=== PATIENT | female | born 1955 | race Caucasian/White ===

== ENCOUNTER 2018-05-22 13:17 | Outpatient (RCR) | payer MEDICARE, MEDICAID, SELFPAY ==
[2018-05-22 13:43] VITALS: BP 159/80; PULSE 75; RESP 16; TEMP 35.7; BMI 37.3
--- NOTE | 2018-05-22 16:20 | PCM.WC.PN ---
(1) Non-pressure chronic ulcer of other part of right foot with fat layer exposed Status: Chronic Current Visit: Yes Code(s): L97.512 - Non-pressure chronic ulcer of other part of right foot with fat layer exposed (2) Type 2 diabetes mellitus with diabetic polyneuropathy Status: Chronic Current Visit: Yes Code(s): E11.42 - Type 2 diabetes mellitus with diabetic polyneuropathy (3) Delayed wound healing Status: Chronic Current Visit: Yes Code(s): T14.8XXD - Other injury of unspecified body region, subsequent encounter (4) Malnutrition Status: Suspected Current Visit: Yes Code(s): E46 - Unspecified protein-calorie malnutrition (5) Osteomyelitis of right foot Status: Suspected Current Visit: Yes Code(s): M86.9 - Osteomyelitis, unspecified (6) Other specified peripheral vascular diseases Status: Suspected Current Visit: Yes Code(s): I73.89 - Other specified peripheral vascular diseases (7) Venous insufficiency Status: Suspected Current Visit: Yes Code(s): I87.2 - Venous insufficiency (chronic) (peripheral) (8) Edema leg Status: Chronic Current Visit: Yes Code(s): R60.0 - Localized edema Type of Wound Chief Complaint: Right foot ulcer History of Wound: This 63-year-old female with uncontrolled diabetic neuropathy and other multiple comorbidities presents to the wound healing center today. She was referred from the foot and ankle center. She did have her second and third toe amputations performed about 8 years ago and had recent skin peeling and breakdown of this site. She denies current redness fever, chill, nausea, vomiting or odors. She denies trauma. She denies claudication during ambulation. She applies gauze at home. She does have rest paresthesias and has known neuropathy. Progress of Wound: Stable - Physical Exam Vital Signs Temp Pulse Resp BP 96.2 F L 75 16 159/80 H 05/22/18 13:43 05/22/18 13:43 05/22/18 13:43 05/22/18 13:43 General: Alert, Oriented x3, Cooperative HEENT: Atraumatic Extremities: No cyanosis, Capillary Refill Less than 3 Seconds, No Calf Tenderness - Negative Beatrice and Aldrich sign, Diminished Peripheral Pulses, Edema - Bilateral lower extremities with leg hyperpigmentation and some telangiectasias, - - Amputation of first, second, third toes right foot Skin: Ulcer/ Wound - No purulence, erythema, streaking, odor, or acute infection. There is no exposed deep tissue. There is a full-thickness granular base ulcer sub-first metatarsal head location. There is additional skin peeling and excoriations and inflammatory changes to the entire 1, 2, 3, stump sites at the amputation level. There is no bogginess or fluctuance on palpation right foot. There is no interdigital maceration Wound Measurements and Assessment NICOLÁS - Nurse 1 - General Ulcer Measurement Start: 05/22/18 13:39 Freq: Status: Active Protocol: Activity Type Activity Date Activity User E-Sign Co-Sign Detail Recorded Client Recorded Date Recorded By Document 05/22/18 13:43 [facility] [id number] 05/22/18 14:01 [facility] 05/22/18 13:43 Wound Center Nurse 1 [Ulcer Assessment] #1- RT PLANTAR FOOT -Combined with other wound No -Current Size (cm) - Length 0.6 -Current Size (cm) - Width 0.4 -Current Size (cm) - Depth 0.2 -Total Square Cm 0.24 -Date of Last Picture (Recall this 05/22/18 field) -Photo Taken Yes -Epithelialization None Present -Tunneling No -Undermining/Tunneling No -Circular Undermining No -Exudate Amt Small (1-33%) -Exudate Type Serosanguineous -Wound Margin Distinct, Outline Attached -Granulation Amt Medium (34-66%) -Granulation Quality [place] -Slough/Fibrin Yes -Necrosis Amt Small (1-33%) -Necrotic Tissue Type Adherent Slough -Texture (Luisana-wound Skin Appearance) Scarring -Moisture (Luisana-wound Skin Appearance Dry/Scaly ) -Color (Luisana-wound Skin Appearance) Assessed Erythema -Temperature (Luisana-wound Skin Hot Appearance) -Tenderness on Palpation (Luisana-wound Yes Skin Appearance) -Ulcer Cleansing Wound Cleanser -Foul Odor after Cleansing No -Anesthetic Used 4% Lidocaine Solution [Edema Assessment] -Lower Limb Edema Present Yes -Right Calf (cm) 50 -Right Ankle (cm) 47.7 -Left Calf (cm) 27.6 -Left Ankle (cm) 26.5 NICOLÁS - Nurse 2 - General Ulcer CM Notes Start: 05/22/18 13:39 Freq: Status: Active Protocol: Activity Type Activity Date Activity User E-Sign Co-Sign Detail Recorded Client Recorded Date Recorded By Document 05/22/18 14:32 [id number] 05/22/18 14:34 05/22/18 14:32 Wound Center Nurse 2 [Procedure/Treatment] #1- RT PLANTAR FOOT -Time 14:32 -Correct Patient Yes -Correct Side, Site, Position Yes -Correct Procedure Yes -Procedure Performed Yes -Type of Procedure Debridement -Clinical Debridement Subcutaneous -Post Debridement Size (cm) - Length 0.7 -Post Debridement Size (cm) - Width 0.4 -Post Debridement Size (cm) - Depth 0.2 -Total Square Cm 0.28 -Wound/Ulcer Outcome Not Healed -Ulcer Cleansing Rinsed/ Irrigated with Saline -Foul Odor after Cleansing No -Bioengineered Tissue No -Bleeding Controlled with Pressure -Treatment Response Procedure Tolerated Well [See Physician Procedure note for Specifics] Pain Scale: 0-10 Numeric [Pain] -Is Patient Pain Free? Yes Musculoskeletal: No Tenderness to Palpation of Joints or Extremities, Muscle Wasting Psych/Mental Status: Normal Affect - Lack of epicritic sensation light touch, Appropriate Debridement Note Post-Debridement Measurements/Treatment WC - Nurse 2 - General Ulcer CM Notes Start: 05/22/18 13:39 Freq: Status: Active Protocol: Activity Type Activity Date Activity User E-Sign Co-Sign Detail Recorded Client Recorded Date Recorded By Document 05/22/18 14:32 [id number] 05/22/18 14:34 05/22/18 14:32 Wound Center Nurse 2 #1- RT PLANTAR FOOT -Time 14:32 -Correct Patient Yes -Correct Side, Site, Position Yes -Correct Procedure Yes -Procedure Performed Yes -Type of Procedure Debridement -Clinical Debridement Subcutaneous -Post Debridement Size (cm) - Length 0.7 -Post Debridement Size (cm) - Width 0.4 -Post Debridement Size (cm) - Depth 0.2 -Total Square Cm 0.28 -Wound/Ulcer Outcome Not Healed -Ulcer Cleansing Rinsed/ Irrigated with Saline -Foul Odor after Cleansing No -Bioengineered Tissue No -Bleeding Controlled with Pressure -Treatment Response Procedure Tolerated Well Pain Scale: 0-10 Numeric Is Patient Pain Free? Yes Wound debrided: sub 1st metatarsal head Wound Grade/Stage: grade 1 Type of Debridement: Excisional debridement Anesthesia Used: 4% Lidocaine Solution Depth: in the subcutaneous layer Percentage of wound debrided: 100 Instrument Used: #15 blade Tissue Removed: fibrous, devitalized subcutaneous, biofilm, slough Severity: Fat Layer Exposed Amount of bleeding with debridement: Mild Bleeding Controlled with: Pressure Patient tolerated procedure well Assessment/Plan Active Problems Type 2 diabetes mellitus with diabetic polyneuropathy (Chronic) Non-pressure chronic ulcer of other part of right foot with fat layer exposed (Chronic) Delayed wound healing (Chronic) Edema leg (Chronic) Assessment: Ulcer right foot with fat layer exposed. Diabetes with neuropathy. Edema. Peripheral vascular disease suspected. Venous insufficiency suspected. Malnutrition suspected. Delayed healing. Previous 1, 2, 3 toe amputations of right foot Plan: I reviewed and discussed this patient's case today. I initially saw her at the foot and ankle center. She did not obtain the x-ray or labs that I recommended. New orders were provided today. She is also going to get rescheduled for noninvasive vascular studies to look for any potential perfusion issues. She will additionally obtain venous Doppler to evaluate specifically for reflux and venous insufficiency. I recommended offloading. She does have a surgical shoe with offloading dual density Plastizote liners to take pressure off of the sub-first metatarsal head ulcer site. She is reassured there are no local signs of infection today but understands that subacute osteomyelitis deep to this area is at her previous amputation site and this is a concern. This will be screened for with the labs and imaging studies. Her labs are ordered to include CMP, CBC with differential, ESR, C-reactive protein, and prealbumin. I recommend nutritional supplementation optimize healing including Wilbert; a prescription was provided. I also recommend improved glycemic control she understands this will impair healing potential. I also provided education on smoking cessation; this is imperative for healing potential as well. I answered all of her questions. She will return to the wound center in 1 week or call sooner if she has any questions or concerns.
== END 2018-06-20 23:59 ==
LOC: WC 13:17
PROVIDERS: Family Provider Family Medicine; PCP Family Medicine; Visit Provider Podiatrist
DX: E11.621 Type 2 diabetes mellitus with foot ulcer (principal); E11.42 Type 2 diabetes mellitus with diabetic polyneuropathy; I87.2 Venous insufficiency (chronic) (peripheral); R60.0 Localized edema; L97.512 Non-pressure chronic ulcer of other part of right foot with fat layer exposed
CPT/HCPCS: 11042; 99213; G0463

== ENCOUNTER 2018-07-04 13:19 | Inpatient (IN) | payer MEDICARE, MEDICAID, SELFPAY ==
[2018-07-04 13:20] VITALS: BP 196/67; PULSE 70; RESP 17; TEMP 36.6; O2SAT 98; BMI 39.1
--- NOTE | 2018-07-04 15:09 | VDLE_ITS ---
Reason For Study: pain RIGHT GSV is normal. CFV is compressible, spontaneous, phasic, competent and demonstrates normal augmentation. FV is compressible, spontaneous, phasic, competent and demonstrates normal augmentation. POP V is compressible, spontaneous, phasic, competent and demonstrates normal augmentation. T/P Trunk is compressible. PTV is compressible. RT PerV is compressible. Procedure Exam performed portable in ED. The exam was of fair technical quality due to pt body habitus. A preliminary report was called and/or faxed to Dr. Zaragoza. <> Interpretation Summary There is no evidence of right lower extremity deep vein thrombosis. Right greater saphenous vein appears patent and compressible segmentally. Ordering Physician: Ronny Zaragoza Performed By: Maximilian Howard RVLaura
[2018-07-04 15:21] LABS: Absolute Lymphocyte Count 1.72 X10^3/ul (0.83-4.51); Absolute Neutrophil Count 5.1 X10^3/uL (2.0-7.7); Basophil# 0.03 X10^3/uL; Basophil% 0.4 % (0-1); Eosinophil# 0.06 X10^3/uL; Eosinophils% 0.8 % (0-5); Hematocrit 32.8 % (37-47); Hemoglobin 10.9 g/dl (12.0-15.0); Lymphocyte # 1.72 X10^3/ul (4.0); Lymphocyte % 23.3 % (19-41); Mean Corp Hgb Conc 33.2 g/gl (32-36); Mean Corpuscular Hgb 28.8 pg (27.0-32.0); Mean Corpuscular Volume 86.8 fL (81-99); Mean Platelet Vol. 8.4 fl (6.2-12.0); Monocyte# 0.33 X10^3/uL; Monocyte% 4.5 % (0-10); Neutrophil # 5.09 X10^3/uL (2.7-7.7); Neutrophil % 69.1 % (47-70); Platelet Count 367 K/mm3 (150-450); RBC Distribution Width CV 14.5 % (11.6-14.6); RBC Distribution Width SD 43.9 fl (35.1-43.9); Red Blood Count 3.78 M/mm3 (4.2-5.4); White Blood Count 7.4 K/mm3 (4.4-11.0)
[2018-07-04 15:22] LABS: POSITIVE COUNT NO; POSITIVE DIFFERENTIAL NO; POSITIVE MORPHOLOGY NO
[2018-07-04 15:31] LABS: ALB/GLOB Ratio 0.5 RATIO (0.9-2.4); AST(SGOT) 24 U/L (15-37); Alanine Aminotransfer ALT/SGPT 25 U/L (13-56); Albumin, Serum 2.8 g/dL (3.2-5.0); Alkaline Phosphatase 137 U/L (45-117); Anion Gap 7 (5-15); BUN 15 mg/dL (7-18); BUN/Creat Ratio 19.3 RATIO (10-20); Calcium,Total 8.5 mg/dL (8.5-10.1); Chloride 108 mmol/L (98-107); Creatinine, Serum 0.78 mg/dL (0.55-1.02); EST Glomerular Filtration Rate 79 mL/min (>60); Est Glom Filt Rate - Afr Amer 96 mL/min (>60); Globulin 5.6 g/dL (2.2-4.2); Glucose 161 mg/dL (74-106); Potassium 4.2 mmol/L (3.5-5.1); Protein, Total 8.4 g/dL (6.4-8.2); Sodium Level 140 mmol/L (136-145)
[2018-07-04 15:33] LABS: Lactic Acid 1.4 mmol/L (0.4-2.0)
[2018-07-04] MEDS: HYDROmorphone 1 MG/ML Syringe IV (15:37)
[2018-07-04] MEDS: 0.9% Normal Saline 1,000 ML 150 ML IV (15:37)
[2018-07-04] MEDS: Ondansetron 4 MG/2 ML Vial IV (15:37)
--- NOTE | 2018-07-04 15:54 | ED.VISSUMM ---
- ER Visit Summary Date of Service: 07/04/18 Chief Complaint: [Redness, pain, and swelling to right leg] History of Present Illness: The patient is a 63 F [presents the emergency department with complaint of 2 weeks worth of swelling and redness to the right leg. Patient was seen at [place] emergency department 2 weeks ago and was admitted for 3 days. Patient was discharged home on doxycycline. Patient continues to have significant pain and swelling to the leg. Patient denies any fever. Patient denies any chills. Patient does have a history of peripheral vascular disease and a chronic wound to the right foot.] Physical Examination: [HEENT-PERRLA, EOMI. Cranial nerves II through XII grossly intact. TMs clear. Mucous membranes moist. No adenopathy. Cardiovascular-regular rate and rhythm without murmur or ectopy Lungs-clear to auscultation, chest wall stable without crepitus or subcu emphysema Abdomen-normoactive bowel sounds, soft, nontender, no rebound or rigidity, no peritoneal signs. Extremities-intact ?4, normal range of motion, normal pulses. Right leg-patient has diffuse edema from the knee to the foot. Patient has erythema noted and warmth diffusely. Patient has absent great toe, second toe, and third toe. Patient has a wound over where the great toe would be and there is foul odor noted. Patient is noted to have a dorsal pedal pulse is strong as well as a posterior tibial pulse. Test Results: [CBC with differential obtained showed white count 7.4, hemoglobin 10.9, hematocrit 33, platelets 367. History is unremarkable. Lactate was 1.4. LFTs essentially unremarkable. Patient had duplex of the right lower extremity that was unremarkable for DVT. Patient tells me that 2 weeks ago she had x-rays of her leg that were unremarkable.] Emergency Department Course and Treatment: [Patient started on vancomycin and was medicated with morphine and Zofran.] Treatment Plan: [Admit] Disposition: [Admit] Impression: [Right lower extremity cellulitis-failed outpatient therapy Chronic diabetic wound right foot] This note was generated with [employer] dictation software. It may contain incorrect words, spelling, and punctuation that were not noted in review of the chart prior to signing ED Disposition - Plan for ED Patient: Chief Complaint: Cellulitis Referrals: Justino Yost MD [Primary Care Provider] -
--- NOTE | 2018-07-04 15:57 | ED.DCSUM_ITS ---
- ER Visit Summary Date of Service: 07/04/18 Chief Complaint: [Redness, pain, and swelling to right leg] History of Present Illness: The patient is a 63 F [presents the emergency department with complaint of 2 weeks worth of swelling and redness to the right leg. Patient was seen at [place] emergency department 2 weeks ago and was admitted for 3 days. Patient was discharged home on doxycycline. Patient continues to have significant pain and swelling to the leg. Patient denies any fever. Patient denies any chills. Patient does have a history of peripheral vascular disease and a chronic wound to the right foot.] Physical Examination: [HEENT-PERRLA, EOMI. Cranial nerves II through XII grossly intact. TMs clear. Mucous membranes moist. No adenopathy. Cardiovascular-regular rate and rhythm without murmur or ectopy Lungs-clear to auscultation, chest wall stable without crepitus or subcu emphysema Abdomen-normoactive bowel sounds, soft, nontender, no rebound or rigidity, no peritoneal signs. Extremities-intact ?4, normal range of motion, normal pulses. Right leg-patient has diffuse edema from the knee to the foot. Patient has erythema noted and warmth diffusely. Patient has absent great toe, second toe, and third toe. Patient has a wound over where the great toe would be and there is foul odor noted. Patient is noted to have a dorsal pedal pulse is strong as well as a posterior tibial pulse. Test Results: [CBC with differential obtained showed white count 7.4, hemoglobin 10.9, hematocrit 33, platelets 367. History is unremarkable. Lactate was 1.4. LFTs essentially unremarkable. Patient had duplex of the right lower extr emity that was unremarkable for DVT. Patient tells me that 2 weeks ago she had x-rays of her leg that were unremarkable.] Emergency Department Course and Treatment: [Patient started on vancomycin and was medicated with morphine and Zofran.] Treatment Plan: [Admit] Disposition: [Admit] Impression: [Right lower extremity cellulitis-failed outpatient therapy Chronic diabetic wound right foot] This note was generated with [employer] dictation software. It may contain incorrect words, spelling, and punctuation that were not noted in review of the chart prior to signing ED Disposition - Plan for ED Patient: Chief Complaint: Cellulitis Referrals: Justino Yost MD [Primary Care Provider] -
--- NOTE | 2018-07-04 16:09 | HP.PCM_ITS ---
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 (2) Non-pressure chronic ulcer of other part of right foot with fat layer exposed Status: Chronic (3) HLD (hyperlipidemia) Status: Chronic (4) Morbid obesity Status: Chronic (5) PVD (peripheral vascular disease) Status: Chronic History of Present Illness Date of Admission: 07/04/18 Chief Complaint: Redness, swelling of legs, 2 weeks, failed outpatient therapy The patient is a 63 year old F with past medical history of morbid obesity, type II DM, complicated by peripheral neuropathy, status post right first 3 toes amputation, hypertension, depression/anxiety recently admitted to [facility] 2 weeks ago for right lower extremity cellulitis. She said workup there was negative for osteomyelitis. She was discharged a week ago on d oxycycline for which she has completed today. She noticed that her right lower extremity was still red, warm to touch, and painful. She complains of fever and chills as well as nausea and vomiting ongoing for 3 days. Denies any diarrhea or abdominal discomfort. She denies any itching or scratching. Vitals in the ED showed temperature of 90 7.8F, heart rate was 70, blood pressure was 196/67, respiratory rate was 17, SPO2 was 97% on room air. Lab investigation showed RBC count 7.4, Hb 10.9, platelet count of 367. Sodium was 140, potassium 4.2, chloride 108, bicarbonate 25, BUN 15, creatinine 0.78 Doppler ultrasound of both lower extremity was negative for any acute DVT 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 (Chronic) Delayed wound healing (Chronic) Edema leg (Chronic) Morbid obesity (Chronic) Wound infection (Chronic) Rt tow Peripheral neuropathy (Chronic) PVD (peripheral vascular disease) (Chronic) HLD (hyperlipidemia) (Chronic) DM2 (diabetes mellitus, type 2) (Chronic) Agitated depression (Chronic) Allergies clindamycin Allergy (Verified 07/04/18 13:19) Unknown Penicillins Allergy (Verified 07/04/18 13:19) Rash pentazocine [From Talwin] Allergy (Verified 07/04/18 13:19) Unknown tramadol [From Ultram] Allergy (Verified 07/04/18 13:19) Unknown morphine [From MS Contin] Adverse Reaction (Verified 07/04/18 13:19) Unknown varenicline [From Chantix] Adverse Reaction (Verified 07/04/18 13:19) Unknown Home Medications: Ambulatory Orders Medication Instructions Recorded Clopidogrel Bisulfate [Plavix] 75 mg PO DAILY 10/20/16 Gabapentin [Neurontin] 600 mg PO 4X/DAY 10/20/16 Insulin Aspart [Novolog Vial] 13 units SQ TIDCM 10/20/16 Lisinopril [Zestril] 5 mg PO DAILY 10/20/16 Naproxen 375 mg PO BID PRN PRN 10/20/16 Ropinirole HCl [Requip] 0.5 mg PO QHS 10/20/16 Rosuvastatin Calcium 10 mg PO QHS 10/20/16 Sertraline HCl [Zoloft] 200 mg PO DAILY 10/20/16 Albuterol IH (ProAir) [Proair Hfa 2 puff INHALATION Q4H PRN PRN 05/22/18 (SP)Vent Pts] Aspirin 81 mg PO DAILY 05/22/18 Cyclobenzaprine HCl 10 mg PO TID PRN PRN 05/22/18 Insulin Glargine,Hum.rec.anlog 42 unit SQ QHS 05/22/18 [Basaglar Kwikpen U-100] Lactulose 10 - 20 gm PO DAILY PRN PRN 05/22/18 Lorazepam [Ativan] 1 mg PO 4X/DAY 05/22/18 Nystatin Powder [Mycostatin Powder] 1 applic TOPICAL BID 05/22/18 Ondansetron HCl [Zofran] 4 mg PO Q6H PRN PRN 05/22/18 Doxycycline Hyclate 100 mg PO BID 07/04/18 traZODone [Desyrel] 200 mg PO QHS PRN PRN 07/04/18 Surgical History: appendectomy, cholecystectomy, hysterectomy, tonsillectomy, - - Carpal tunnel surgery, status post right first 3 toes removal Psychiatric History: Anxiety, Depression 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 Denies: Anorexia, Malaise, Weight Change Eyes: Denies: Blurred vision, Cataracts, Conjunctivae Inflammation, Double vision HEENT: Denies: Difficulty Hearing, Difficulty Swallowing, Head Aches, Hearing Changes, Nasal bleeding, Sinus Congestion, Sinus Drainage Cardiovascular: Denies: Chest Pain, Claudication, Orthopnea, Palpitations, Paroxysmal Noc. Dyspnea Respiratory: Denies: Cough, Hemoptysis, Pleuritic Pain, Shortness of breath at rest, Shortness of breath upon exertion, Sputum production Gastrointestinal: Denies: Abdominal Pain, Hematemesis, Hematochezia, Nausea, Vomiting Genitourinary: Denies: Dysuria Musculoskeletal: Reports: Leg Pain. Denies: Joint Pain, Joint stiffness, Joint swelling, Joint Tenderness Skin: Denies: Pruritis, Rash, Wounds Neurological: Denies: Numbness, Tingling, Focal weakness Psychiatric: Denies: Anxiety, Depression, Homicidal Ideations, Suicidal Ideations Hematologic/ Lymphatic: Denies: Easy Bruising, Easy Bleeding VTE Information - Inpt Only VTE Present on Admission: No VTE Pharm Prophylaxis ordered?: Yes - Physical Exam General: Alert, Oriented x3, Cooperative, No apparent distress, - - Morbidly obese HEENT: Atraumatic, PERRLA, EOMI, Normocephalic Oral: Moist Mucosa Neck: Supple Lungs: Clear to auscultation, Normal air movement Cardiovascular: Regular rate, Regular Rhythm, Normal S1, Normal S2, No murmurs Abdomen: Bowel Sounds Present, Soft, Non Tender, Non-Distended, No Hepato- splenomegaly, Obese - Anterior abdominal wall Extremities: Edema - Bilateral leg edema, +3-4, erythema of the right medial and posterior aspect of the leg, with petechiae-like skin changes, with differential warmth and more edema Status post right first 3 toes amputation, chronic ulcer at the plantar surface. Skin: No rashes, No breakdown Musculoskeletal: No Tenderness to Palpation of Joints or Extremities Lymphatic: No Cervical, Supraclavicular, or Inguinal Adenopathy Neurological: Cranial nerves II-XII grossly intact, Neuro grossly intact Psych/Mental Status: Normal Affect, Appropriate Vital Signs Temp Pulse Resp BP Pulse Ox 97.8 F 70 17 196/67 H 98 07/04/18 13:20 07/04/18 13:20 07/04/18 13:20 07/04/18 13:20 07/04/18 13:20 Oxygen Delivery Method Nasal Cannula Weight: 106.594 kg Body Mass Index (BMI) 39.1 Laboratory Tests Past 24 Hrs 07/04/18 07/04/18 07/04/18 14:20 14:20 14:20 WBC 7.4 RBC 3.78 L Hgb 10.9 L Hct 32.8 L MCV 86.8 MCH 28.8 MCHC 33.2 RDW 14.5 RDW Differential 43.9 Plt Count 367 MPV 8.4 Immature Gran % (Auto) 1.900 H Neut % (Auto) 69.1 Lymph % (Auto) 23.3 [place] % (Auto) 4.5 Eos % (Auto) 0.8 Baso % (Auto) 0.4 Absolute Neuts (auto) 5.1 Absolute Lymphs (auto) 1.72 Total Counted Not Reportable Sodium 140 Potassium 4.2 Chloride 108 H Carbon Dioxide 25.0 Anion Gap 7 BUN 15 Creatinine 0.78 Estim Creat Clear Calc 64.70 Est GFR (MDRD) Af Amer 96 Est GFR (MDRD) Non-Af 79 BUN/Creatinine Ratio 19.3 Glucose 161 H Lactic Acid 1.4 Calcium 8.5 Total Bilirubin 0.50 AST 24 ALT 25 Alkaline Phosphatase 137 H Total Protein 8.4 H Albumin 2.8 L Globulin 5.6 H Albumin/Globulin Ratio 0.5 L Assessment/Plan 63 year old F with past medical history of morbid obesity, type II DM, complicated by peripheral neuropathy, status post right first 3 toes amputation, chronic non-healing foot ulcer hypertension, depression/anxiety recently admitted to [facility] 2 weeks ago for right lower extremity cellulitis. 1.Right lower extremity cellulitis, persistent, failed outpatient treatment, recently discharged from over the [facility] for similar presentation Completed 1 week of doxycycline today. DVT ruled out from bilateral Doppler of extremities. Plan: Admit to [facility], elevate extremity, IV vancomycin and IV ertapenem, ID consult, follow-up on blood cultures, retrieve records from [facility] 2.Chronic right plantar diabetic ulcer, was following labor relations officer but has not recently, will consult podiatry, wound nurse consult, retrieve records from [facility]. 3.Type II DM complicated by peripheral neuropathy, continue on home insulin regimen, gabapentin as well as Accu-Cheks with insulin sliding scale 4.Hypertension, continue on home lisinopril regimen, will monitor vitals 5.Morbid obesity, BMI 39.1, diet and exercise is recommended 6.Nicotine dependence, advised to quit, continue nicotine patch and gum 7.Anxiety/depression, continue home medication 8.History of CVA, on aspirin and Plavix 9. Anemia, microcytic microchromic, will check iron stores, retic count 10. DVT PPx- Lovenox SC Code Visit Inpatient E&M: 75495 Init Hosp L3
[2018-07-04 16:11] VITALS: PULSE 68; RESP 15; O2SAT 93
[2018-07-04 16:49] VITALS: BMI 41.1; BMI 41.2
[2018-07-04 17:08] VITALS: BP 178/59; PULSE 72; RESP 16; TEMP 36.4; O2SAT 98
[2018-07-04 17:10] LABS: Bedside Glucose 183 mg/dL (70-110)
--- NOTE | 2018-07-04 17:35 | RAD_ITS ---
STUDY: X-RAY - RIGHT FOOT CLINICAL: Female, 63 years old. Nonhealing right foot ulcers. TECHNIQUE: 3 view(s) of the foot. COMPARISON: None. FINDINGS: The absence of prior studies is a significant limitation examination such as this. Patient is status post amputation of the first ray at the level of the mid metatarsal. There has also been amputations of the second and third digits. No definite fractures or dislocations. No definite destructive lesions of the bones. Moderate degenerative changes of the midfoot. Large plantar spur. Marked soft tissue swelling of the dorsum and medial aspect of the foot. Soft tissue air is not excluded. RAD/Foot min 3 Views IMPRESSION: Multiple forefoot deformities from previous amputations. No definite acute fracture, dislocation, or destructive lesion of the bones. Marked soft tissue swelling. Electronically Signed: Steffen Edouard MD at 17:56 EST , Service support ,
--- NOTE | 2018-07-04 17:39 | PCM.RX.CS ---
Consult Pharmacy has been consulted to manage selected antiobiotic: Vancomycin Type of Consult: New start Suspected Infection: Skin/Soft tissue Prior Doses of Antibiotics Received/Current Regimen: 1 Labs: Sodium 140 mmol/L (136-145) 07/04/18 14:20 Potassium 4.2 mmol/L (3.5-5.1) 07/04/18 14:20 Chloride 108 mmol/L (98-107) H 07/04/18 14:20 Carbon Dioxide 25.0 mmol/L (21.0-32.0) 07/04/18 14:20 Anion Gap 7 (5-15) 07/04/18 14:20 BUN 15 mg/dL (7-18) 07/04/18 14:20 Creatinine 0.78 mg/dL (0.55-1.02) 07/04/18 14:20 Est GFR (MDRD) Af Amer 96 mL/min (>60) 07/04/18 14:20 Est GFR (MDRD) Non-Af 79 mL/min (>60) 07/04/18 14:20 BUN/Creatinine Ratio 19.3 RATIO (10-20) 07/04/18 14:20 Glucose 161 mg/dL (74-106) H 07/04/18 14:20 Weight used for dosin kg Estimated Creatinine Clearance: 65 Goal Trough: 15-20 mcg/mL - start Vancomycin 1500mg IVPB q12h and draw trough level prior to 4th dose = 07/06/18 @ 0330 Pharmacy Plan for Drug Dosing: Pharmacy Service will continue to monitor and adjust dosing as required.
--- NOTE | 2018-07-04 18:11 | PCA ---
faxed over medical records request to [facility] for doctor.
[2018-07-04 18:43] LABS: Ferritin 220 ng/mL (8-252); Iron 46 ug/dL (50-170); Iron Binding Capacity,Total 213 ug/dL (250-450); PERCENT IRON SATURATION 21.6 % (15.0-55.0)
[2018-07-04 19:16] LABS: RET-HE 27.1 pg (30-35); Reticulocyte Count 3.59 % (0.5-1.5)
--- NOTE | 2018-07-04 19:16 | CON.PCM_ITS ---
Reason for Consult Date of Consultation: 07/04/18 Reason for Consultation: Ulcer, infection right foot History of Present Illness: The patient is a 63 year old female with history of diabetes was seen today for right foot ulceration. She has had hx of partial 1st ray amputation as well as 2nd and 3rd toe amputation on the right foot over the past 6 years. She relates she had has a chronic ulceration to the bottom of the right foot (sub 2nd met head), which is nonhealing. She relates sometimes there is yellow drainage. She relates she last saw Dr. Alvarado 1 year ago for the ulcer and states she was told nothing more could be done. She has also seen Dr. Johnson on in the past. She has not followed up with care. She relates she was admitted at [facility] last week for cellulitis to the right leg, she relates she still has cellulitis which is why she came to [facility]. She relates her blood sugars have been controlled, she relates she does not remember her last ha1c. 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 (Chronic) Delayed wound healing (Chronic) Edema leg (Chronic) Morbid obesity (Chronic) Wound infection (Chronic) Rt tow Peripheral neuropathy (Chronic) PVD (peripheral vascular disease) (Chronic) HLD (hyperlipidemia) (Chronic) DM2 (diabetes mellitus, type 2) (Chronic) Agitated depression (Chronic) Allergies clindamycin Allergy (Verified 07/04/18 13:19) Unknown Penicillins Allergy (Verified 07/04/18 13:19) Rash pentazocine [From Talwin] Allergy (Verified 07/04/18 13:19) Unknown tramadol [From Ultram] Allergy (Verified 07/04/18 13:19) Unknown morphine [From MS Contin] Adverse Reaction (Verified 07/04/18 13:19) Unknown varenicline [From Chantix] Adverse Reaction (Verified 07/04/18 13:19) Unknown Home Medications: Ambulatory Orders Medication Instructions Recorded Clopidogrel Bisulfate [Plavix] 75 mg PO DAILY 10/20/16 Gabapentin [Neurontin] 600 mg PO 4X/DAY 10/20/16 Insulin Aspart [Novolog Vial] 13 units SQ TIDCM 10/20/16 Lisinopril [Zestril] 5 mg PO DAILY 10/20/16 RX: Naproxen 375 mg PO BID PRN PRN 10/20/16 RX: Rosuvastatin Calcium 10 mg PO QHS 10/20/16 Ropinirole HCl [Requip] 0.5 mg PO QHS 10/20/16 Sertraline HCl [Zoloft] 200 mg PO DAILY 10/20/16 Albuterol IH (ProAir) [Proair Hfa 2 puff INHALATION Q4H PRN PRN 05/22/18 (SP)Vent Pts] Insulin Glargine,Hum.rec.anlog 42 unit SQ QHS 05/22/18 [Basaglar Kwikpen U-100] Lorazepam [Ativan] 1 mg PO 4X/DAY 05/22/18 Nystatin Powder [Mycostatin Powder] 1 applic TOPICAL BID 05/22/18 Ondansetron HCl [Zofran] 4 mg PO Q6H PRN PRN 05/22/18 RX: Aspirin 81 mg PO DAILY 05/22/18 RX: Cyclobenzaprine HCl 10 mg PO TID PRN PRN 05/22/18 RX: Lactulose 10 - 20 gm PO DAILY PRN PRN 05/22/18 Doxycycline Hyclate 100 mg PO BID 07/04/18 RX: traZODone [Desyrel] 200 mg PO QHS PRN PRN 07/04/18 Surgical History: appendectomy, cholecystectomy, hysterectomy, tonsillectomy, - - Carpal tunnel surgery, status post right first 3 toes removal Psychiatric History: Anxiety, Depression DIVISION CONTROLLER History: No pertinent DIVISION CONTROLLER history Lives: Spouse/ Significant Other, With Family Smoking Status: Current every day smoker Tobacco Use: Cigarettes Alcohol: Occasional Drugs: None - *Family History Maternal History Items: Cancer - Breast, Diabetes Paternal History Items: - - Legionnaires' disease Sibling History Items: Heart Disease - Physical Exam General: Alert, Oriented x3, Cooperative, No apparent distress Extremities: No clubbing, No cyanosis, Capillary Refill Less than 3 Seconds, Edema, - - Right foot s/w partial 1st ray amputation and 2nd and 3rd toe amputations - there is ulceration sub 2nd metatarsal head which does have viable base and margins, there is thin soft tissue coverage over bone, there is diffuse lower extremity edema, and erythema to the ankle and leg, there is no maloder, no fluctuance, no visible abscess, no crepitus, no necrosis, no purulence present, there is some serous drainage present, there is no probe to bone. There are no other open ulcerations bilateral foot/ankle. CFT < 2 seconds to the toes, pedal pulses appear intact, no evidence of acute ischemia to the foot/ankle bilateral. Peripheral neuropathy bilateral foot. Motor function intact bilateral foot/ankle. Musculoskeletal: No Tenderness to Palpation of Joints or Extremities - of the foot/ankle bilateral Psych/Mental Status: Alert and oriented to time, place, person, mood and affect - Patient resting comfortably in bed. Vital Signs Temp Pulse Resp BP Pulse Ox 97.6 F L 72 16 178/59 H 98 07/04/18 17:08 07/04/18 17:08 07/04/18 17:08 07/04/18 17:08 07/04/18 17:08 Oxygen Delivery Method Room Air Weight: 112.128 kg Body Mass Index (BMI) 41.1 Laboratory Tests Past 24 Hrs 07/04/18 07/04/18 07/04/18 14:20 14:20 14:20 WBC 7.4 RBC 3.78 L Hgb 10.9 L Hct 32.8 L MCV 86.8 MCH 28.8 MCHC 33.2 RDW 14.5 RDW Differential 43.9 Plt Count 367 MPV 8.4 Immature Gran % (Auto) 1.900 H Neut % (Auto) 69.1 Lymph % (Auto) 23.3 [place] % (Auto) 4.5 Eos % (Auto) 0.8 Baso % (Auto) 0.4 Absolute Neuts (auto) 5.1 Absolute Lymphs (auto) 1.72 Total Counted Not Reportable Immature Plt Fraction Retic Count Sodium 140 Potassium 4.2 Chloride 108 H Carbon Dioxide 25.0 Anion Gap 7 BUN 15 Creatinine 0.78 Estim Creat Clear Calc 64.70 Est GFR (MDRD) Af Amer 96 Est GFR (MDRD) Non-Af 79 BUN/Creatinine Ratio 19.3 Glucose 161 H Lactic Acid 1.4 Calcium 8.5 Iron TIBC Iron Saturation Ferritin Total Bilirubin 0.50 AST 24 ALT 25 Alkaline Phosphatase 137 H Total Protein 8.4 H Albumin 2.8 L Globulin 5.6 H Albumin/Globulin Ratio 0.5 L 07/04/18 07/04/18 14:20 14:20 WBC RBC Hgb Hct MCV MCH MCHC RDW RDW Differential Plt Count MPV Immature Gran % (Auto) Neut % (Auto) Lymph % (Auto) [place] % (Auto) Eos % (Auto) Baso % (Auto) Absolute Neuts (auto) Absolute Lymphs (auto) Total Counted Immature Plt Fraction Pending Retic Count Pending Sodium Potassium Chloride Carbon Dioxide Anion Gap BUN Creatinine Estim Creat Clear Calc Est GFR (MDRD) Af Amer Est GFR (MDRD) Non-Af BUN/Creatinine Ratio Glucose Lactic Acid Calcium Iron 46 L TIBC 213 L Iron Saturation 21.6 Ferritin 220 Total Bilirubin AST ALT Alkaline Phosphatase Total Protein Albumin Globulin Albumin/Globulin Ratio POC Glucose 07/04/18 17:06 POC Glucose 183 H Assessment/Plan Chronic ulceration sub 2nd metatarsal head right foot Cellulitis right lower extremity s/p partial 1st ray amputation, 2nd and 3rd toe amputations, right foot Diabetic Neuropathy Obesity Reviewed findings, reviewed right foot xrays, no gas in the tissues, no evidence of osteomyelitis. Given this is a chronic ulceration with signs/symptoms of infection an MRI was ordered for further evaluation. Noninvasive LEAS were also ordered for further evaluation on lower extremity arterial flow. A culture was obtained from the wound site. ID service has been consulted. Wound was painted with betadine solution and overlying gauze, kerlix and [place] dressing applied. Wound care nurse was consulted. No weightbearing right forefoot. Podiatry will continue to follow.
[2018-07-04] MEDS: oxyCODONE 5 MG Tablet PO ×2 (19:35→23:53)
[2018-07-04 19:59] VITALS: PULSE 80
[2018-07-04 20:36] VITALS: BP 175/66; PULSE 79; RESP 18; TEMP 36.8; O2SAT 96
[2018-07-04 20:40] VITALS: PULSE 79; RESP 18; O2SAT 96
[2018-07-04 21:33] LABS: Probe Check PASS; Staph aureus DNA By PCR POSITIVE (Negative)
[2018-07-04 21:36] LABS: M R Staph aureus DNA By PCR POSITIVE (Negative)
--- NOTE | 2018-07-04 21:38 | NURSING ---
Lab called with report +MRSA told primary [employer] [employer].
[2018-07-04] MEDS: Pramipexole Di-HCl 0.25 MG Tablet PO (22:30)
[2018-07-04] MEDS: Atorvastatin Calcium 20 MG Tablet PO (22:30)
[2018-07-04] MEDS: Gabapentin 600 MG Tablet PO (22:30)
[2018-07-04] MEDS: traZODone 100 MG Tablet 200 MG PO (22:30)
[2018-07-04 22:40] LABS: Bedside Glucose 179 mg/dL (70-110)
[2018-07-04 22:50] LABS: Erythrocyte Sedimentation Rate 47 mm/hr (0-30)
[2018-07-05] VITALS (14 sets, daily range): BP systolic 151–164; BP diastolic 53–62; PULSE 60–105; RESP 18; TEMP 36.6–37.1; O2SAT 95–98
[2018-07-05] MEDS: Ketorolac 30 MG/ML Syringe IV ×3 (01:06→22:02)
[2018-07-05] MEDS: Labetalol 20 MG/4 ML Vial 10 MG IV (01:23)
[2018-07-05] MEDS: oxyCODONE 5 MG Tablet PO ×3 (04:02→16:42)
[2018-07-05 05:40] LABS: Absolute Neutrophil Count 4.4 X10^3/uL (2.0-7.7); Basophil# 0.02 X10^3/uL; Basophil% 0.3 % (0-1); Eosinophils% 1.5 % (0-5); Hematocrit 28.8 % (37-47); Hemoglobin 9.2 g/dl (12.0-15.0); Lymphocyte % 27.8 % (19-41); Mean Corp Hgb Conc 31.9 g/gl (32-36); Mean Corpuscular Volume 87.5 fL (81-99); Mean Platelet Vol. 8.4 fl (6.2-12.0); Monocyte# 0.43 X10^3/uL; Monocyte% 6.3 % (0-10); Neutrophil # 4.35 X10^3/uL (2.7-7.7); Neutrophil % 63.7 % (47-70); Platelet Count 245 K/mm3 (150-450); RBC Distribution Width CV 14.7 % (11.6-14.6); RBC Distribution Width SD 46.5 fl (35.1-43.9); Red Blood Count 3.29 M/mm3 (4.2-5.4); White Blood Count 6.8 K/mm3 (4.4-11.0)
[2018-07-05 05:42] LABS: POSITIVE COUNT NO; POSITIVE DIFFERENTIAL NO; POSITIVE MORPHOLOGY NO
[2018-07-05 05:57] LABS: Anion Gap 6 (5-15); BUN 19 mg/dL (7-18); BUN/Creat Ratio 19.5 RATIO (10-20); Calcium,Total 7.9 mg/dL (8.5-10.1); Chloride 111 mmol/L (98-107); Creatinine, Serum 0.97 mg/dL (0.55-1.02); EST Glomerular Filtration Rate 61 mL/min (>60); Est Glom Filt Rate - Afr Amer 74 mL/min (>60); Estimated Creatinine Clearance 49.93 ml/min; Glucose 163 mg/dL (74-106); Potassium 4.2 mmol/L (3.5-5.1); Sodium Level 143 mmol/L (136-145)
--- NOTE | 2018-07-05 06:47 | MRI_ITS ---
STUDY: MRI RIGHT FOOT REASON FOR EXAM: Chronic ulcer at the second metatarsal head with redness and swelling for 2 weeks. TECHNIQUE: Standardized fat and water weighted pulse sequences were obtained in all 3 orthogonal planes. COMPARISON: Radiographs 07/04/2018 and MRI images 09/03/2011. FINDINGS: Normal talonavicular articulation. Normal calcaneocuboid articulation. There is mild arthrosis of the navicular-cuneiform articulations with mild chondral thinning (T2 series 4 images 9, 10). Normal intercuneiform articulations. Normal first tarsometatarsal articulation. There is mild arthrosis with mild chondral thinning of the second through fifth tarsometatarsal joints (T2 series 4 images 9-15). There is amputation of the first metatarsal at the mid diaphyseal level with cystic change (inversion recovery sagittal image 18; T1 sagittal image 18). There is amputation of the phalanges of the second and third digits. There is very mild bone edema of the second metatarsal head (inversion recovery sagittal images 14, 15) without corresponding decreased T1 bone marrow signal and therefore either reactive bone edema or early osteomyelitis. There is very mild bone edema of the third metatarsal head (inversion recovery sagittal image 10) without corresponding decreased T1 bone marrow signal and therefore either reactive bone edema or early osteomyelitis. There is no bone edema of the metatarsals or phalanges of the fourth and fifth digits to indicate osteomyelitis. There is atrophy of the intrinsic muscles of the foot with fat replacement (T1 sagittal images 3-16) consistent with peripheral neuropathy. There is edema in the subcutis adipose space, especially of the dorsal foot without focal fluid collection to indicate soft tissue abscess. MRI/Lower Ext/No Jt/w/o IMPRESSION: Very mild bone edema of the heads of the second and third metatarsals without corresponding decreased T1 bone marrow signal and therefore either reactive bone edema or early osteomyelitis. Edema in the subcutis adipose space without demonstrated soft tissue abscess. Atrophy of the intrinsic muscles of the foot consistent with peripheral neuropathy. Electronically Signed: Sanford Tamayo MD at 11:21 EST Tel , Service support ,
--- NOTE | 2018-07-05 08:14 | NURSING ---
wound photo: right foot
[2018-07-05] MEDS: Lisinopril 5 MG Tablet PO (08:53)
[2018-07-05] MEDS: Aspirin 81 MG TAB.CHEW PO (08:53)
[2018-07-05] MEDS: ALPRAZolam 0.25 MG Tablet PO (08:53)
[2018-07-05] MEDS: Gabapentin 600 MG Tablet PO ×4 (08:53→22:03)
[2018-07-05] MEDS: Clopidogrel Bisulfate 75 MG Tablet PO (08:53)
[2018-07-05] MEDS: Enoxaparin 40 MG/0.4 ML Syringe SC (08:54)
[2018-07-05] MEDS: Insulin Lispro 100 UNIT/ML INSULN.PEN 13 UNIT SC ×2 (08:54→11:46)
[2018-07-05] MEDS: Sertraline 100 MG Tablet 200 MG PO (08:54)
[2018-07-05 09:16] LABS: Bedside Glucose 133 mg/dL (70-110)
--- NOTE | 2018-07-05 10:24 | PCM.PROGNOTE ---
Subjective: Chief complaint: Follow-up after admission for acute right lower extremity cellulitis with failure of outpatient therapy and diabetic right foot nonhealing probably infected ulcer in context of history of partial amputation of the first, second and third toes 6 years ago. Patient seen and examined. No acute events overnight. She just came back from [facility]. She complains of right leg pain which is dull aching pain, 9 out of 10 in severity. Swelling and erythema of the right leg slightly improved. She denied chest pain or shortness of breath. She has been afebrile, blood pressure slightly elevated, other vital signs are stable. - Physical Exam General: Alert, Oriented x3, Cooperative, No apparent distress HEENT: Atraumatic, PERRLA, EOMI, Normocephalic Oral: Moist Mucosa, No Gingival or Mucosal Lesions/ Ulcerations Neck: Supple, No JVD, Negative Carotid Bruits, Trachea Midline, Thyroid Normal Size and Texture Lungs: Clear to auscultation, No rhonchi, No wheeze, No rales, Diminished Cardiovascular: Regular rate, Regular Rhythm, Normal S1, Normal S2, No murmurs Abdomen: Bowel Sounds Present, Soft, Non Tender, Non-Distended, No Hepato-splenomegaly Extremities: No clubbing, No cyanosis, Edema - Trace edema on the left leg. Right leg: Swollen, minimal erythema, tender, hot to palpation. Right foot: Amputated first, second and third toes, erythema at the incision site. Skin: No rashes, Ulcer/ Wound Lymphatic: No Cervical, Supraclavicular, or Inguinal Adenopathy Neurological: Cranial nerves II-XII grossly intact, Motor Exam 5/5 strength throughout Psych/Mental Status: Normal Affect, Appropriate, Alert and oriented to time, place, person, mood and affect Vital Signs Temp Pulse Resp BP Pulse Ox 98.5 F 68 18 160/58 H 98 07/05/18 08:45 07/05/18 08:52 07/05/18 08:45 07/05/18 08:45 07/05/18 08:45 Oxygen Delivery Method Room Air Weight: 247 lb 3.2 oz Body Mass Index (BMI) 41.1 Intake and Output for Last 24 Hours 07/03/18 07/04/18 07/05/18 23:59 23:59 23:59 Intake Total 2754 / 2754 Output Total 200 / 200 Balance 2554 / 2554 Laboratory Tests Past 24 Hrs 07/04/18 07/04/18 07/04/18 14:20 14:20 14:20 WBC 7.4 RBC 3.78 L Hgb 10.9 L Hct 32.8 L MCV 86.8 MCH 28.8 MCHC 33.2 RDW 14.5 RDW Differential 43.9 Plt Count 367 MPV 8.4 Immature Gran % (Auto) 1.900 H Neut % (Auto) 69.1 Lymph % (Auto) 23.3 [place] % (Auto) 4.5 Eos % (Auto) 0.8 Baso % (Auto) 0.4 Absolute Neuts (auto) 5.1 Absolute Lymphs (auto) 1.72 Total Counted Not Reportable Immature Plt Fraction ESR Retic Count Immature Retic Fraction Retic Hgb Equivalent Sodium 140 Potassium 4.2 Chloride 108 H Carbon Dioxide 25.0 Anion Gap 7 BUN 15 Creatinine 0.78 Estim Creat Clear Calc 64.70 Est GFR (MDRD) Af Amer 96 Est GFR (MDRD) Non-Af 79 BUN/Creatinine Ratio 19.3 Glucose 161 H Lactic Acid 1.4 Calcium 8.5 Iron TIBC Iron Saturation Ferritin Total Bilirubin 0.50 AST 24 ALT 25 Alkaline Phosphatase 137 H C-React Prot Ext Range Total Protein 8.4 H Albumin 2.8 L Globulin 5.6 H Albumin/Globulin Ratio 0.5 L S.aureus Protein A PCR MRSA (PCR) 07/04/18 07/04/18 07/04/18 14:20 14:20 14:20 WBC RBC Hgb Hct MCV MCH MCHC RDW RDW Differential Plt Count MPV Immature Gran % (Auto) Neut % (Auto) Lymph % (Auto) [place] % (Auto) Eos % (Auto) Baso % (Auto) Absolute Neuts (auto) Absolute Lymphs (auto) Total Counted Immature Plt Fraction 1.0 ESR 47 H Retic Count 3.59 H Immature Retic Fraction 15.90 Retic Hgb Equivalent 27.1 L Sodium Potassium Chloride Carbon Dioxide Anion Gap BUN Creatinine Estim Creat Clear Calc Est GFR (MDRD) Af Amer Est GFR (MDRD) Non-Af BUN/Creatinine Ratio Glucose Lactic Acid Calcium Iron 46 L TIBC 213 L Iron Saturation 21.6 Ferritin 220 Total Bilirubin AST ALT Alkaline Phosphatase C-React Prot Ext Range Total Protein Albumin Globulin Albumin/Globulin Ratio S.aureus Protein A PCR MRSA (PCR) 07/04/18 07/04/18 07/05/18 14:20 19:05 05:06 WBC 6.8 RBC 3.29 L Hgb 9.2 L Hct 28.8 L MCV 87.5 MCH 28.0 MCHC 31.9 L RDW 14.7 H RDW Differential 46.5 H Plt Count 245 MPV 8.4 Immature Gran % (Auto) 0.400 Neut % (Auto) 63.7 Lymph % (Auto) 27.8 [place] % (Auto) 6.3 Eos % (Auto) 1.5 Baso % (Auto) 0.3 Absolute Neuts (auto) 4.4 Absolute Lymphs (auto) 1.90 Total Counted Not Reportable Immature Plt Fraction ESR Retic Count Immature Retic Fraction Retic Hgb Equivalent Sodium Potassium Chloride Carbon Dioxide Anion Gap BUN Creatinine Estim Creat Clear Calc Est GFR (MDRD) Af Amer Est GFR (MDRD) Non-Af BUN/Creatinine Ratio Glucose Lactic Acid Calcium Iron TIBC Iron Saturation Ferritin Total Bilirubin AST ALT Alkaline Phosphatase C-React Prot Ext Range 11.80 H Total Protein Albumin Globulin Albumin/Globulin Ratio S.aureus Protein A PCR POSITIVE H MRSA (PCR) POSITIVE H 07/05/18 05:06 WBC RBC Hgb Hct MCV MCH MCHC RDW RDW Differential Plt Count MPV Immature Gran % (Auto) Neut % (Auto) Lymph % (Auto) [place] % (Auto) Eos % (Auto) Baso % (Auto) Absolute Neuts (auto) Absolute Lymphs (auto) Total Counted Immature Plt Fraction ESR Retic Count Immature Retic Fraction Retic Hgb Equivalent Sodium 143 Potassium 4.2 Chloride 111 H Carbon Dioxide 26.0 Anion Gap 6 BUN 19 H Creatinine 0.97 Estim Creat Clear Calc 49.93 Est GFR (MDRD) Af Amer 74 Est GFR (MDRD) Non-Af 61 BUN/Creatinine Ratio 19.5 Glucose 163 H Lactic Acid Calcium 7.9 L Iron TIBC Iron Saturation Ferritin Total Bilirubin AST ALT Alkaline Phosphatase C-React Prot Ext Range Total Protein Albumin Globulin Albumin/Globulin Ratio S.aureus Protein A PCR MRSA (PCR) POC Glucose 07/05/18 07/04/18 07/04/18 08:44 22:29 17:06 POC Glucose 133 H 179 H 183 H Clinical Impression(s) from Imaging Studies Foot X-Ray 07/04/18 17:35 IMPRESSION: Multiple forefoot deformities from previous amputations. No definite acute fracture, dislocation, or destructive lesion of the bones. Marked soft tissue swelling. Electronically Signed: Steffen Edouard MD at 17:56 EST , Service support , Medical Necessity - Tobacco Use Smoking Status: Current every day smoker Tobacco Use: Cigarettes Assessment/Plan This is a 63 years old female patient admitted because of worsening left leg redness, swelling and she was found to have acute right lower extremity cellulitis, right diabetic foot nonhealing probably infected ulcer with failure of outpatient therapy. #1 acute right lower extremity cellulitis/diabetic right foot nonhealing probably infected ulcer: In context of history of amputation of the first, second and third toes 6 years ago. She failed outpatient therapy. She is on IV Rocephin, Flagyl and vancomycin. Vital signs are stable, afebrile. Routine blood work was remarkable for chronic anemia, otherwise normal. Blood and wound cultures are pending. ESR and C-reactive protein are elevated. MRSA screen was positive. Venous Doppler of the right leg revealed no evidence of acute DVT. MRI of the right foot done, pending results. Podiatry medicine and infectious disease on the case. Plan to continue same treatment, awaiting the results of the MRI of the right foot. #2 status post right first, second and third toe amputation: This was done for diabetic foot infection 6 years ago. The stump of the amputation look slightly erythematous, no drainage. Plan as above. #3 type 2 diabetes mellitus: She is on ADA diet, Lantus insulin as well as pre-meal Humalog 3 times daily. Blood sugar has been stable. Plan to continue same treatment. #4 hypertension: Blood pressure stable, continue lisinopril and IV labetalol as needed. #5 chronic anemia: It is normocytic anemia. Serum iron is slightly below normal range, iron saturation and ferritin are normal. It is likely anemia of chronic disease. Hemoglobin is 9.2 g/dL. No evidence of active bleeding, she is a symptomatic. Plan to transfuse if hemoglobin less than 8 g/dL. #6 history of CVA: Stable, no acute issues, continue aspirin, Plavix and statins. #7 tobacco abuse: NicoDerm patch. #8 anxiety/depression: Continue Zoloft, trazodone. #9 DVT prophylaxis: Subcu Lovenox. This note was generated with [employer] dictation software. It may contain incorrect words, spelling, and punctuation that were not noted in checking the note before signing. Code Visit Inpatient E&M: 25706 Subs Hosp L2
--- NOTE | 2018-07-05 11:05 | CON.PCM_ITS ---
Problem List (1) Wound infection Status: Chronic Comment: Rt tow Reason for Consult: wound infection Consulted by: Dr. Frost History of Present Illness: The patient is a 63 year old F with DM neuropathy who presented with worsening R foot ulcer with pain, foul smelling drainage, some fever/chills. Cut her R calf a few weeks ago with spreading redness and burning pain. Admitted to [facility] [place] for cellulitis, discharged on po doxy. Foot wound has worsened, so came to ED here. Wound cx sent, started on vanc/ertapenem. Some nausea. Reports taking keflex in past with no issue, maybe has taken augmentin as well. Full ROS performed and neg except as noted above. 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) Delayed wound healing (Chronic) Edema leg (Chronic) Morbid obesity (Chronic) Wound infection (Chronic) Rt tow Peripheral neuropathy (Chronic) PVD (peripheral vascular disease) (Chronic) HLD (hyperlipidemia) (Chronic) DM2 (diabetes mellitus, type 2) (Chronic) Agitated depression (Chronic) Allergies/Adverse Reactions: Allergies clindamycin Allergy (Verified 07/04/18 13:19) Unknown Penicillins Allergy (Verified 07/04/18 13:19) Rash pentazocine [From Talwin] Allergy (Verified 07/04/18 13:19) Unknown tramadol [From Ultram] Allergy (Verified 07/04/18 13:19) Unknown morphine [From MS Contin] Adverse Reaction (Verified 07/04/18 13:19) Unknown varenicline [From Chantix] Adverse Reaction (Verified 07/04/18 13:19) Unknown Home Medications: Ambulatory Orders Medication Instructions Recorded Clopidogrel Bisulfate [Plavix] 75 mg PO DAILY 10/20/16 Gabapentin [Neurontin] 600 mg PO 4X/DAY 10/20/16 Insulin Aspart [Novolog Vial] 13 units SQ TIDCM 10/20/16 Lisinopril [Zestril] 5 mg PO DAILY 10/20/16 Naproxen 375 mg PO BID PRN PRN 10/20/16 Ropinirole HCl [Requip] 0.5 mg PO QHS 10/20/16 Rosuvastatin Calcium 10 mg PO QHS 10/20/16 Sertraline HCl [Zoloft] 200 mg PO DAILY 10/20/16 Albuterol IH (ProAir) [Proair Hfa 2 puff INHALATION Q4H PRN PRN 05/22/18 (SP)Vent Pts] Aspirin 81 mg PO DAILY 05/22/18 Cyclobenzaprine HCl 10 mg PO TID PRN PRN 05/22/18 Insulin Glargine,Hum.rec.anlog 42 unit SQ QHS 05/22/18 [Basaglar Kwikpen U-100] Lactulose 10 - 20 gm PO DAILY PRN PRN 05/22/18 Lorazepam [Ativan] 1 mg PO 4X/DAY 05/22/18 Nystatin Powder [Mycostatin Powder] 1 applic TOPICAL BID 05/22/18 Ondansetron HCl [Zofran] 4 mg PO Q6H PRN PRN 05/22/18 Doxycycline Hyclate 100 mg PO BID 07/04/18 traZODone [Desyrel] 200 mg PO QHS PRN PRN 07/04/18 - Social History SMOKING STATUS:: Current every day smoker Vital Signs Temp Pulse Resp BP Pulse Ox 98.5 F 68 18 160/58 H 98 07/05/18 08:45 07/05/18 08:52 07/05/18 08:45 07/05/18 08:45 07/05/18 08:45 Oxygen Delivery Method Room Air Weight: 112.128 kg Body Mass Index (BMI) 41.1 Microbiology Past 72 Hours 07/04/18 19:05 Gram Stain - Final Wound - Right Foot Laboratory Tests Past 24 Hrs 07/04/18 07/04/18 07/04/18 14:20 14:20 14:20 WBC 7.4 RBC 3.78 L Hgb 10.9 L Hct 32.8 L MCV 86.8 MCH 28.8 MCHC 33.2 RDW 14.5 RDW Differential 43.9 Plt Count 367 MPV 8.4 Immature Gran % (Auto) 1.900 H Neut % (Auto) 69.1 Lymph % (Auto) 23.3 [place] % (Auto) 4.5 Eos % (Auto) 0.8 Baso % (Auto) 0.4 Absolute Neuts (auto) 5.1 Absolute Lymphs (auto) 1.72 Total Counted Not Reportable Immature Plt Fraction ESR Retic Count Immature Retic Fraction Retic Hgb Equivalent Sodium 140 Potassium 4.2 Chloride 108 H Carbon Dioxide 25.0 Anion Gap 7 BUN 15 Creatinine 0.78 Estim Creat Clear Calc 64.70 Est GFR (MDRD) Af Amer 96 Est GFR (MDRD) Non-Af 79 BUN/Creatinine Ratio 19.3 Glucose 161 H Lactic Acid 1.4 Calcium 8.5 Iron TIBC Iron Saturation Ferritin Total Bilirubin 0.50 AST 24 ALT 25 Alkaline Phosphatase 137 H C-React Prot Ext Range Total Protein 8.4 H Albumin 2.8 L Globulin 5.6 H Albumin/Globulin Ratio 0.5 L S.aureus Protein A PCR MRSA (PCR) 07/04/18 07/04/18 07/04/18 14:20 14:20 14:20 WBC RBC Hgb Hct MCV MCH MCHC RDW RDW Differential Plt Count MPV Immature Gran % (Auto) Neut % (Auto) Lymph % (Auto) [place] % (Auto) Eos % (Auto) Baso % (Auto) Absolute Neuts (auto) Absolute Lymphs (auto) Total Counted Immature Plt Fraction 1.0 ESR 47 H Retic Count 3.59 H Immature Retic Fraction 15.90 Retic Hgb Equivalent 27.1 L Sodium Potassium Chloride Carbon Dioxide Anion Gap BUN Creatinine Estim Creat Clear Calc Est GFR (MDRD) Af Amer Est GFR (MDRD) Non-Af BUN/Creatinine Ratio Glucose Lactic Acid Calcium Iron 46 L TIBC 213 L Iron Saturation 21.6 Ferritin 220 Total Bilirubin AST ALT Alkaline Phosphatase C-React Prot Ext Range Total Protein Albumin Globulin Albumin/Globulin Ratio S.aureus Protein A PCR MRSA (PCR) 07/04/18 07/04/18 07/05/18 14:20 19:05 05:06 WBC 6.8 RBC 3.29 L Hgb 9.2 L Hct 28.8 L MCV 87.5 MCH 28.0 MCHC 31.9 L RDW 14.7 H RDW Differential 46.5 H Plt Count 245 MPV 8.4 Immature Gran % (Auto) 0.400 Neut % (Auto) 63.7 Lymph % (Auto) 27.8 [place] % (Auto) 6.3 Eos % (Auto) 1.5 Baso % (Auto) 0.3 Absolute Neuts (auto) 4.4 Absolute Lymphs (auto) 1.90 Total Counted Not Reportable Immature Plt Fraction ESR Retic Count Immature Retic Fraction Retic Hgb Equivalent Sodium Potassium Chloride Carbon Dioxide Anion Gap BUN Creatinine Estim Creat Clear Calc Est GFR (MDRD) Af Amer Est GFR (MDRD) Non-Af BUN/Creatinine Ratio Glucose Lactic Acid Calcium Iron TIBC Iron Saturation Ferritin Total Bilirubin AST ALT Alkaline Phosphatase C-React Prot Ext Range 11.80 H Total Protein Albumin Globulin Albumin/Globulin Ratio S.aureus Protein A PCR POSITIVE H MRSA (PCR) POSITIVE H 07/05/18 05:06 WBC RBC Hgb Hct MCV MCH MCHC RDW RDW Differential Plt Count MPV Immature Gran % (Auto) Neut % (Auto) Lymph % (Auto) [place] % (Auto) Eos % (Auto) Baso % (Auto) Absolute Neuts (auto) Absolute Lymphs (auto) Total Counted Immature Plt Fraction ESR Retic Count Immature Retic Fraction Retic Hgb Equivalent Sodium 143 Potassium 4.2 Chloride 111 H Carbon Dioxide 26.0 Anion Gap 6 BUN 19 H Creatinine 0.97 Estim Creat Clear Calc 49.93 Est GFR (MDRD) Af Amer 74 Est GFR (MDRD) Non-Af 61 BUN/Creatinine Ratio 19.5 Glucose 163 H Lactic Acid Calcium 7.9 L Iron TIBC Iron Saturation Ferritin Total Bilirubin AST ALT Alkaline Phosphatase C-React Prot Ext Range Total Protein Albumin Globulin Albumin/Globulin Ratio S.aureus Protein A PCR MRSA (PCR) - Other Studies Radiology: [] reviewed Other Studies: [] Route of nutrition/ use of supplements: [] Nutritional Intake: [] IV Site: [] Zuñiga Catheter: [] - Physical Exam General: Alert, Oriented x3, Cooperative, No apparent distress HEENT: Atraumatic, PERRLA, EOMI Neck: Supple, No Nodes Lungs: Clear to auscultation, Normal air movement Cardiovascular: Regular rate, Regular Rhythm Abdomen: Soft, Non Tender, Non-Distended Extremities: Edema Skin: Ulcer/ Wound - Distal R foot, prior 1-3 toe amputations, - - R calf mild redness IV Site: Peripheral, without redness Musculoskeletal: No Tenderness to Palpation of Joints or Extremities - Assessment/Plan Antibiotics: [] Assessment/Plan: [] R foot MRSA infected ulcer with DM neuropathy - MRI pending, podiatry following. May need surgical debridement. Has tolerated keflex and ? augmentin in the past, so will narrow abx to vanc, ceftriaxone, and po flagyl. Will follow, thank you.
[2018-07-05 11:51] LABS: Bedside Glucose 132 mg/dL (70-110)
[2018-07-05] MEDS: 0.9% NaCl Peripheral Flush Adult/Peds IV ×2 (14:23→22:04)
[2018-07-05] MEDS: metroNIDAZOLE 500 MG Tablet PO ×2 (14:25→22:03)
--- NOTE | 2018-07-05 15:16 | CHAPLAIN ---
patient is sleeping
--- NOTE | 2018-07-05 15:35 | CASEMGMT ---
ESTEPHANIA CORBETT INITIAL ASSESSMENT D/C PLAN: Home vs Home w/HHC if IV antibiotics or therapy needed. Face to Face with patient for initial transition planning/care coordination assessment. ESTEPHANIA CORBETT introduced self and role at [facility]. Pt resting in bed, awake/alert/oriented. Agreeable to assessment and able to answer all questions appropriately. Care providers, pharmacy, and demographics verified. PCP: Dr Justino Yost Specialists: None Preferred Pharmacy: [facility] Insurance: [facility], Medicaid. Prescription Benefit: Yes Living Will/HPOA: Has both LW and HCPOA, who is her , Michael. Not in e-chart and pt states unable to have brought in. LNOK: Living Arrangements: Lives with her in one-story handicap apt. No stairs to enter. Pt independent with ADL's. assists with laundry and is able to assist with care if needed. Transportation: DME: Has a cane, walker, W/C, and scooter. Mostly uses the walker and W/C @ home. Also has, power lift bath chair, grab bars, hand held shower, lift chair, and oxygen. [facility] does not use the lift chair and has not used the oxygen for a long time. She thinks the concentrator is through [employer] but she is not sure. [facility] is interested in Medical Alert information. Info provided. HHC: Has used [facility]HC after she was diagnosed with Ovarian CA. States if would need IV antibiotics or therapy upon discharge she would be agreeable to [facility] services. Pt states she would be willing/able to learn how to administer IV antibiotics and that her would be also. SNF: Has been to [facility] after having a stroke but does not want to return there. States prefers to return home, but if she would need SNF upon discharge, her 1st preference would be [place]. CM to follow for any further discharge planning needs that may arise. Jesus Manuel JOHNSON RN, CM
[2018-07-05 17:06] LABS: Bedside Glucose 82 mg/dL (70-110)
--- NOTE | 2018-07-05 17:26 | PN_ITS ---
Subjective: Patient was seen today for follow up on right foot. She had MRI and LEAS completed today. She has no new complaints. No complaints of fever, chills, nausea or vomiting. - Physical Exam General: Alert, Oriented x3, Cooperative, No apparent distress Extremities: - - Right foot s/w partial 1st ray amputation and 2nd and 3rd toe amputations, stable ulceration sub 2nd metatarsal head, thin soft tissue coverage over bone, there is diffuse lower extremity edema and cellulitis, there is no maloder, no fluctuance, no visible abscess, no crepitus, no necrosis, no purulence present. MRI right foot w/ bone marrow edema to the 2nd and 3rd metatarsal heads. Vital Signs Temp Pulse Resp BP Pulse Ox 98.4 F 80 18 158/60 H 95 07/05/18 14:22 07/05/18 15:00 07/05/18 14:22 07/05/18 14:22 07/05/18 14:22 Oxygen Delivery Method Room Air Weight: 112.12 kg Body Mass Index (BMI) 41.1 Intake and Output for Last 24 Hours 07/03/18 07/04/18 07/05/18 23:59 23:59 23:59 Intake Total 3884 / 3884 Output Total 200 / 200 Balance 3684 / 3684 Microbiology Past 72 Hours 07/04/18 19:05 Gram Stain - Final Wound - Right Foot Laboratory Tests Past 24 Hrs 07/04/18 07/04/18 07/04/18 14:20 14:20 14:20 WBC RBC Hgb Hct MCV MCH MCHC RDW RDW Differential Plt Count MPV Immature Gran % (Auto) Neut % (Auto) Lymph % (Auto) [place] % (Auto) Eos % (Auto) Baso % (Auto) Absolute Neuts (auto) Absolute Lymphs (auto) Total Counted Immature Plt Fraction 1.0 ESR 47 H Retic Count 3.59 H Immature Retic Fraction 15.90 Retic Hgb Equivalent 27.1 L Sodium Potassium Chloride Carbon Dioxide Anion Gap BUN Creatinine Estim Creat Clear Calc Est GFR (MDRD) Af Amer Est GFR (MDRD) Non-Af BUN/Creatinine Ratio Glucose Calcium Iron 46 L TIBC 213 L Iron Saturation 21.6 Ferritin 220 C-React Prot Ext Range S.aureus Protein A PCR MRSA (PCR) 07/04/18 07/04/18 07/05/18 14:20 19:05 05:06 WBC 6.8 RBC 3.29 L Hgb 9.2 L Hct 28.8 L MCV 87.5 MCH 28.0 MCHC 31.9 L RDW 14.7 H RDW Differential 46.5 H Plt Count 245 MPV 8.4 Immature Gran % (Auto) 0.400 Neut % (Auto) 63.7 Lymph % (Auto) 27.8 [place] % (Auto) 6.3 Eos % (Auto) 1.5 Baso % (Auto) 0.3 Absolute Neuts (auto) 4.4 Absolute Lymphs (auto) 1.90 Total Counted Not Reportable Immature Plt Fraction ESR Retic Count Immature Retic Fraction Retic Hgb Equivalent Sodium Potassium Chloride Carbon Dioxide Anion Gap BUN Creatinine Estim Creat Clear Calc Est GFR (MDRD) Af Amer Est GFR (MDRD) Non-Af BUN/Creatinine Ratio Glucose Calcium Iron TIBC Iron Saturation Ferritin C-React Prot Ext Range 11.80 H S.aureus Protein A PCR POSITIVE H MRSA (PCR) POSITIVE H 07/05/18 05:06 WBC RBC Hgb Hct MCV MCH MCHC RDW RDW Differential Plt Count MPV Immature Gran % (Auto) Neut % (Auto) Lymph % (Auto) [place] % (Auto) Eos % (Auto) Baso % (Auto) Absolute Neuts (auto) Absolute Lymphs (auto) Total Counted Immature Plt Fraction ESR Retic Count Immature Retic Fraction Retic Hgb Equivalent Sodium 143 Potassium 4.2 Chloride 111 H Carbon Dioxide 26.0 Anion Gap 6 BUN 19 H Creatinine 0.97 Estim Creat Clear Calc 49.93 Est GFR (MDRD) Af Amer 74 Est GFR (MDRD) Non-Af 61 BUN/Creatinine Ratio 19.5 Glucose 163 H Calcium 7.9 L Iron TIBC Iron Saturation Ferritin C-React Prot Ext Range S.aureus Protein A PCR MRSA (PCR) POC Glucose 07/05/18 07/05/18 07/05/18 16:26 11:40 08:44 POC Glucose 82 132 H 133 H 07/04/18 22:29 POC Glucose 179 H Medical Necessity - Tobacco Use Smoking Status: Current every day smoker Tobacco Use: Cigarettes Assessment/Plan Chronic ulceration sub 2nd metatarsal head right foot Cellulitis right lower extremity Significant foot deformity due to s/p partial 1st ray amputation, 2nd and 3rd toe amputations, right foot Diabetic Neuropathy Obesity Reviewed findings, reviewed right foot xrays, and MRI images and radiology reports, concern for acute osteomyelitis to the 2nd and 3rd metatarsal heads. Reviewed the options with the patient - antibiotic therapy, wound care, offloading as well as surgical options which would be a transmetatarsal amputation. Reviewed the possible benefits vs risks of each. She relates she would like to proceed with the transmetatarsal amputation due to the chronic nature of this condition. We discussed this procedure in detail, reviewed the rationale of this, possible benefits vs risks, goals and expectations. Reviewed estimated healing time - advised she will need to remain strict nonweightbearing to the right foot until this is completely healed, and also recommended going to nursing facility post op until this is healed. She expressed understanding and agreement and elects to proceed with this procedure. We will plan for this tomorrow, I did review with Dr. Mar. Reviewed the noninvasive LEAS which do show BRAYDEN of 1.02 at PT level, clinically she has palpable pulses and normal CFT with no evidence of ischemia. Formal report is pending. Continue to follow culture and antibiotic therapy per ID service. No weightbearing right forefoot. Podiatry will continue to follow.
--- NOTE | 2018-07-05 17:34 | EKG12_ITS ---
Test Reason : PRE-OP Blood Pressure : / mmHG Vent. Rate : 073 BPM Atrial Rate : 073 BPM P-R Int : 150 ms QRS Dur : 098 ms QT Int : 416 ms P-R-T Axes : 064 052 003 degrees QTc Int : 458 ms Normal sinus rhythm Normal ECG When compared with ECG of 30-JUL-2012 21:04, Nonspecific T wave abnormality now evident in Inferior leads Confirmed by STEPHANIE MANRIQUEZ, NAVID ([id number]), proposal editor NIKITA JACOBO ([id number]) on 07/13/2018 2:02:36 PM Referred By: MELISSA Confirmed By:NAVID BROWN MD
--- NOTE | 2018-07-05 17:35 | RAD_ITS ---
STUDY: X-RAY CHEST REASON FOR EXAM: Female, 63 years old. Shortness of breath TECHNIQUE: Single frontal view COMPARISON: None. FINDINGS: The lungs are expanded. Mild bibasilar interstitial prominence. Right basilar atelectasis. Normal size heart. Normal mediastinum and jaqui. Normal visualized pulmonary arteries. Normal visualized aortic arch and descending thoracic aorta. Degenerative changes of the thoracic spine. Normal visualized ribs, clavicles, and shoulders. There is no demonstrated abnormality of the visualized soft tissue structures of the upper abdomen. RAD/Chest 1 View (Portable) IMPRESSION: Mild bibasilar interstitial prominence. Right basilar atelectasis. Electronically Signed: Akin Matta DO at 23:58 EST Tel [phone], Service support ,
[2018-07-05] MEDS: traZODone 100 MG Tablet 200 MG PO (22:03)
[2018-07-05] MEDS: Atorvastatin Calcium 20 MG Tablet PO (22:04)
[2018-07-05] MEDS: Pramipexole Di-HCl 0.25 MG Tablet PO (22:04)
[2018-07-05] MEDS: Insulin Lispro 100 UNIT/ML INSULN.PEN SC (22:09)
[2018-07-05 22:15] LABS: Bedside Glucose 191 mg/dL (70-110)
[2018-07-06] VITALS (21 sets, daily range): BP systolic 131–174; BP diastolic 38–75; PULSE 64–82; RESP 14–18; TEMP 36.5–37.2; O2SAT 93–100; BMI 41.2
[2018-07-06] MEDS: oxyCODONE 5 MG Tablet PO ×5 (00:07→23:09)
[2018-07-06 03:14] LABS: Absolute Lymphocyte Count 1.75 X10^3/ul (0.83-4.51); Absolute Neutrophil Count 5.1 X10^3/uL (2.0-7.7); Basophil# 0.03 X10^3/uL; Basophil% 0.4 % (0-1); Eosinophil# 0.16 X10^3/uL; Eosinophils% 2.1 % (0-5); Hematocrit 26.6 % (37-47); Hemoglobin 8.6 g/dl (12.0-15.0); Lymphocyte # 1.75 X10^3/ul (4.0); Lymphocyte % 23.5 % (19-41); Mean Corp Hgb Conc 32.3 g/gl (32-36); Mean Corpuscular Hgb 28.3 pg (27.0-32.0); Mean Corpuscular Volume 87.5 fL (81-99); Mean Platelet Vol. 8.4 fl (6.2-12.0); Monocyte# 0.34 X10^3/uL; Monocyte% 4.6 % (0-10); Neutrophil # 5.14 X10^3/uL (2.7-7.7); Neutrophil % 68.9 % (47-70); Platelet Count 269 K/mm3 (150-450); RBC Distribution Width CV 14.4 % (11.6-14.6); RBC Distribution Width SD 44.3 fl (35.1-43.9); Red Blood Count 3.04 M/mm3 (4.2-5.4); White Blood Count 7.5 K/mm3 (4.4-11.0)
[2018-07-06 03:41] LABS: POSITIVE COUNT NO; POSITIVE DIFFERENTIAL NO; POSITIVE MORPHOLOGY NO
[2018-07-06 03:56] LABS: Vancomycin, Trough Level 24.4 ug/mL (5.0-15.0)
[2018-07-06] MEDS: Ketorolac 30 MG/ML Syringe IV ×2 (04:02→21:43)
--- NOTE | 2018-07-06 04:59 | PCM.RX.CS ---
Consult Pharmacy has been consulted to manage selected antiobiotic: Vancomycin Type of Consult: Follow-up Suspected Infection: Skin/Soft tissue Prior Doses of Antibiotics Received/Current Regimen: Medications Vancomycin HCl 1,500 mg/ (Sodium Chloride) 530 mls @ 250 mls/hr IV Q12H CRISTIN Last Admin: 07/06/18 03:50 Dose: 250 mls/hr Labs: Sodium 143 mmol/L (136-145) 07/05/18 05:06 Potassium 4.2 mmol/L (3.5-5.1) 07/05/18 05:06 Chloride 111 mmol/L (98-107) H 07/05/18 05:06 Carbon Dioxide 26.0 mmol/L (21.0-32.0) 07/05/18 05:06 Anion Gap 6 (5-15) 07/05/18 05:06 BUN 19 mg/dL (7-18) H 07/05/18 05:06 Creatinine 0.97 mg/dL (0.55-1.02) 07/05/18 05:06 Est GFR (MDRD) Af Amer 74 mL/min (>60) 07/05/18 05:06 Est GFR (MDRD) Non-Af 61 mL/min (>60) 07/05/18 05:06 BUN/Creatinine Ratio 19.5 RATIO (10-20) 07/05/18 05:06 Glucose 163 mg/dL (74-106) H 07/05/18 05:06 Vancomycin Trough 24.4 ug/mL (5.0-15.0) H 07/06/18 02:58 Microbiology: Microbiology 07/04/18 19:05 Wound - Right Foot Gram Stain - Final Weight used for dosin kg Estimated Creatinine Clearance: 49.9 Goal Trough: 15-20 mcg/mL Pharmacy Plan for Drug Dosing: Trough level of 24.4 received. Above the target range of 15-20, so will hold current vancomycin order until level is re-drawn 07/06/18 @1530. Will evaluate further dosing at that point. Pharmacy Service will continue to monitor and adjust dosing as required. Follow-Up Labs: Trough Vancomycin - random Labs to be done on [date and time ordered]: 07/06/18 @1530
[2018-07-06 05:04] LABS: Anion Gap 10 (5-15); BUN 21 mg/dL (7-18); BUN/Creat Ratio 25.4 RATIO (10-20); Calcium,Total 7.4 mg/dL (8.5-10.1); Chloride 112 mmol/L (98-107); Creatinine, Serum 0.83 mg/dL (0.55-1.02); EST Glomerular Filtration Rate 74 mL/min (>60); Est Glom Filt Rate - Afr Amer 89 mL/min (>60); Estimated Creatinine Clearance 60.81 ml/min; Glucose 109 mg/dL (74-106); Potassium 4.8 mmol/L (3.5-5.1); Sodium Level 144 mmol/L (136-145)
[2018-07-06] MEDS: metroNIDAZOLE 500 MG Tablet PO ×3 (05:59→21:43)
--- NOTE | 2018-07-06 07:03 | NURSING ---
Pt is scheduled to have surgery today for a transmetatarsal amputation of the right foot per Dr Sutherland. will leave dressing in place.
[2018-07-06] MEDS: Aspirin 81 MG TAB.CHEW PO (08:48)
--- NOTE | 2018-07-06 08:48 | PCM.PROGNOTE ---
Subjective: Chief complaint: Follow-up after admission for acute right lower extremity cellulitis with failure of outpatient therapy and diabetic foot nonhealing infected ulcer. Patient seen and examined. No acute events overnight. She rated her right foot pain as 8 out of 10 in severity. She denies fever chills patient denies chest pain or shortness of breath. Her vital signs are stable. - Physical Exam General: Alert, Oriented x3, Cooperative, No apparent distress HEENT: Atraumatic, PERRLA, EOMI, Normocephalic Oral: Moist Mucosa, No Gingival or Mucosal Lesions/ Ulcerations Neck: Supple, No JVD, Negative Carotid Bruits, Trachea Midline, Thyroid Normal Size and Texture Lungs: Clear to auscultation, No rhonchi, No wheeze, No rales, Diminished Cardiovascular: Regular rate, Regular Rhythm, Normal S1, Normal S2, PMI Normal Abdomen: Bowel Sounds Present, Soft, Non Tender, Non-Distended, No Hepato-splenomegaly, Obese Extremities: No clubbing, No cyanosis, Edema Skin: No rashes, Ulcer/ Wound Lymphatic: No Cervical, Supraclavicular, or Inguinal Adenopathy Neurological: Cranial nerves II-XII grossly intact, Motor Exam 5/5 strength throughout Psych/Mental Status: Normal Affect, Appropriate, Alert and oriented to time, place, person, mood and affect Vital Signs Temp Pulse Resp BP Pulse Ox 97.7 F L 64 18 140/48 H 98 07/06/18 07:52 07/06/18 08:06 07/06/18 07:52 07/06/18 07:52 07/06/18 07:52 Oxygen Flow Rate (L/min) 2 Oxygen Delivery Method Nasal Cannula Weight: 247 lb 2.916 oz Body Mass Index (BMI) 41.1 Intake and Output for Last 24 Hours 07/04/18 07/05/18 07/06/18 23:59 23:59 23:59 Intake Total 3884 / 3884 2180 / 2180 Output Total 200 / 200 300 / 300 Balance 3684 / 3684 1880 / 1880 Microbiology Past 72 Hours 07/04/18 19:05 Gram Stain - Final Wound - Right Foot Laboratory Tests Past 24 Hrs 07/06/18 07/06/18 07/06/18 02:58 02:58 02:58 WBC 7.5 RBC 3.04 L Hgb 8.6 L Hct 26.6 L MCV 87.5 MCH 28.3 MCHC 32.3 RDW 14.4 RDW Differential 44.3 H Plt Count 269 MPV 8.4 Immature Gran % (Auto) 0.500 Neut % (Auto) 68.9 Lymph % (Auto) 23.5 [place] % (Auto) 4.6 Eos % (Auto) 2.1 Baso % (Auto) 0.4 Absolute Neuts (auto) 5.1 Absolute Lymphs (auto) 1.75 Total Counted Not Reportable Sodium 144 Potassium 4.8 Chloride 112 H Carbon Dioxide 22.0 Anion Gap 10 BUN 21 H Creatinine 0.83 Estim Creat Clear Calc 60.81 Est GFR (MDRD) Af Amer 89 Est GFR (MDRD) Non-Af 74 BUN/Creatinine Ratio 25.4 H Glucose 109 H Calcium 7.4 L Vancomycin Trough 24.4 H POC Glucose 07/05/18 07/05/18 07/05/18 22:01 16:26 11:40 POC Glucose 191 H 82 132 H 07/05/18 08:44 POC Glucose 133 H Medical Necessity - Tobacco Use Smoking Status: Former smoker Assessment/Plan This is a 63 years old female patient admitted because of worsening left leg redness, swelling and she was found to have acute right lower extremity cellulitis, right diabetic foot nonhealing probably infected ulcer with failure of outpatient therapy. #1 acute right lower extremity cellulitis/diabetic right foot nonhealing probably infected ulcer: She is on IV Rocephin, vancomycin and oral Flagyl. Her vital signs are stable, afebrile. She had history of amputation of the first, second and third toes 6 years ago. Blood and wound cultures are pending. ESR and C-reactive protein are elevated. MRSA screen was positive. Venous Doppler of the right leg revealed no evidence of acute DVT. MRI of the right foot revealed mild bony edema of the heads of the second and third tarsals, questionable for early osteomyelitis, other findings reviewed. Podiatry medicine on the case, plan for surgery today. #2 preoperative evaluation: 63 years old female patient lives at home, partially dependent, uses walker at home and she has a past history of COPD, CAD status post stents, hypertension and type 2 diabetes mellitus. Chest x-ray showed basilar atelectasis, no acute findings. EKG reviewed, revealed normal sinus rhythm, normal DE interval, normal QRS and no evidence of acute ischemic changes. According to [facility] perioperative cardiac risk based on age, serum creatinine, functional status and type of surgery, her estimated risk for perioperative myocardial infarction or cardiac arrest is 1.16%. Patient is at moderate risk for surgery. No indication for further cardiac workup. Recommend bronchodilators, chest physiotherapy, incentive spirometer, will proceed with surgery. #3 CAD status post stents: She had stents back in 2002. She denies chest pain or shortness of breath. EKG reviewed, showed no acute ischemic changes. Continue aspirin, statins, Plavix, lisinopril. #4 type 2 diabetes mellitus: She is on ADA diet, Lantus insulin as well as pre-meal Humalog 3 times daily. Blood sugar has been stable. Plan to continue same treatment. #5 hypertension: Blood pressure stable, continue lisinopril and IV labetalol as needed. #6 chronic anemia: It is normocytic anemia. Serum iron is slightly below normal range, iron saturation and ferritin are normal. It is likely anemia of chronic disease. Today's hemoglobin is 8.6 g/dL. No evidence of active bleeding, she is a symptomatic. Will repeat CBC tomorrow morning. #7 history of CVA: Stable, no acute issues, continue aspirin, Plavix and statins. #8 COPD: Start albuterol as needed, DuoNeb every 6 hours, incentive spirometer, chest physiotherapy. #9 anxiety/depression: Continue Zoloft, trazodone. #10 DVT prophylaxis: Subcu Lovenox. This note was generated with InstallFree dictation software. It may contain incorrect words, spelling, and punctuation that were not noted in checking the note before signing. Code Visit Inpatient E&M: 00262 Subs Hosp L2
[2018-07-06] MEDS: Gabapentin 600 MG Tablet PO ×3 (08:49→21:43)
[2018-07-06] MEDS: Lisinopril 5 MG Tablet PO (08:49)
[2018-07-06] MEDS: Sertraline 100 MG Tablet 200 MG PO (08:49)
--- NOTE | 2018-07-06 08:55 | PN_ITS ---
Subjective: Chief complaint: Follow-up after admission for acute right lower extremity cellulitis with failure of outpatient therapy and diabetic foot nonhealing infected ulcer. Patient seen and examined. No acute events overnight. She rated her right foot pain as 8 out of 10 in severity. She denies fever chills patient denies chest pain or shortness of breath. Her vital signs are stable. - Physical Exam General: Alert, Oriented x3, Cooperative, No apparent distress HEENT: Atraumatic, PERRLA, EOMI, Normocephalic Oral: Moist Mucosa, No Gingival or Mucosal Lesions/ Ulcerations Neck: Supple, No JVD, Negative Carotid Bruits, Trachea Midline, Thyroid Normal Size and Texture Lungs: Clear to auscultation, No rhonchi, No wheeze, No rales, Diminished Cardiovascular: Regular rate, Regular Rhythm, Normal S1, Normal S2, PMI Normal Abdomen: Bowel Sounds Present, Soft, Non Tender, Non-Distended, No Hepato- splenomegaly, Obese Extremities: No clubbing, No cyanosis, Edema Skin: No rashes, Ulcer/ Wound Lymphatic: No Cervical, Supraclavicular, or Inguinal Adenopathy Neurological: Cranial nerves II-XII grossly intact, Motor Exam 5/5 strength throughout Psych/Mental Status: Normal Affect, Appropriate, Alert and oriented to time, place, person, mood and affect Vital Signs Temp Pulse Resp BP Pulse Ox 97.7 F L 64 18 140/48 H 98 07/06/18 07:52 07/06/18 08:06 07/06/18 07:52 07/06/18 07:52 07/06/18 07:52 Oxygen Flow Rate (L/min) 2 Oxygen Delivery Method Nasal Cannula Weight: 247 lb 2.916 oz Body Mass Index (BMI) 41.1 Intake and Output for Last 24 Hours 07/04/18 07/05/18 07/06/18 23:59 23:59 23:59 Intake Total 3884 / 3884 2180 / 2180 Output Total 200 / 200 300 / 300 Balance 3684 / 3684 1880 / 1880 Microbiology Past 72 Hours 07/04/18 19:05 Gram Stain - Final Wound - Right Foot Laboratory Tests Past 24 Hrs 07/06/18 07/06/18 07/06/18 02:58 02:58 02:58 WBC 7.5 RBC 3.04 L Hgb 8.6 L Hct 26.6 L MCV 87.5 MCH 28.3 MCHC 32.3 RDW 14.4 RDW Differential 44.3 H Plt Count 269 MPV 8.4 Immature Gran % (Auto) 0.500 Neut % (Auto) 68.9 Lymph % (Auto) 23.5 Cass[place] % (Auto) 4.6 Eos % (Auto) 2.1 Baso % (Auto) 0.4 Absolute Neuts (auto) 5.1 Absolute Lymphs (auto) 1.75 Total Counted Not Reportable Sodium 144 Potassium 4.8 Chloride 112 H Carbon Dioxide 22.0 Anion Gap 10 BUN 21 H Creatinine 0.83 Estim Creat Clear Calc 60.81 Est GFR (MDRD) Af Amer 89 Est GFR (MDRD) Non-Af 74 BUN/Creatinine Ratio 25.4 H Glucose 109 H Calcium 7.4 L Vancomycin Trough 24.4 H POC Glucose 07/05/18 07/05/18 07/05/18 22:01 16:26 11:40 POC Glucose 191 H 82 132 H 07/05/18 08:44 POC Glucose 133 H Medical Necessity - Tobacco Use Smoking Status: Former smoker Assessment/Plan This is a 63 years old female patient admitted because of worsening left leg redness, swelling and she was found to have acute right lower extremity cellulitis, right diabetic foot nonhealing probably infected ulcer with failure of outpatient therapy. #1 acute right lower extremity cellulitis/diabetic right foot nonhealing probably infected ulcer: She is on IV Rocephin, vancomycin and oral Flagyl. Her vital signs are stable, afebrile. She had history of amputation of the first, second and third toes 6 years ago. Blood and wound cultures are pending. ESR and C-reactive protein are elevated. MRSA screen was positive. Venous Doppler of the right leg revealed no evidence of acute DVT. MRI of the right foot revealed mild bony edema of the heads of the second and third tarsals, questionable for early osteomyelitis, other findings reviewed. Podiatry medicine on the case, plan for surgery today. #2 preoperative evaluation: 63 years old female patient lives at home, partially dependent, uses walker at home and she has a past history of COPD, CAD status post stents, hypertension and type 2 diabetes mellitus. Chest x-ray showed basilar atelectasis, no acute findings. EKG reviewed, revealed normal sinus rhythm, normal NV interval, normal QRS and no evidence of acute ischemic changes. According to [facility] perioperative cardiac risk based on age, serum creatinine, functional status and type of surgery, her estimated risk for perioperative myocardial infarction or cardiac arrest is 1.16%. Patient is at moderate risk for surgery. No indication for further cardiac workup. Recommend bronchodilators, chest physiotherapy, incentive spirometer, will proceed with surgery. #3 CAD status post stents: She had stents back in 2002. She denies chest pain or shortness of breath. EKG reviewed, showed no acute ischemic changes. Continue aspirin, statins, Plavix, lisinopril. #4 type 2 diabetes mellitus: She is on ADA diet, Lantus insulin as well as pre- meal Humalog 3 times daily. Blood sugar has been stable. Plan to continue same treatment. #5 hypertension: Blood pressure stable, continue lisinopril and IV labetalol as needed. #6 chronic anemia: It is normocytic anemia. Serum iron is slightly below normal range, iron saturation and ferritin are normal. It is likely anemia of chronic disease. Today's hemoglobin is 8.6 g/dL. No evidence of active bleeding, she is a symptomatic. Will repeat CBC tomorrow morning. #7 history of CVA: Stable, no acute issues, continue aspirin, Plavix and statins. #8 COPD: Start albuterol as needed, DuoNeb every 6 hours, incentive spirometer, chest physiotherapy. #9 anxiety/depression: Continue Zoloft, trazodone. #10 DVT prophylaxis: Subcu Lovenox. This note was generated with [employer] dictation software. It may contain incorrect words, spelling, and punctuation that were not noted in checking the note before signing. Code Visit Inpatient E&M: 71431 Subs Hosp L2
[2018-07-06 08:56] LABS: Bedside Glucose 78 mg/dL (70-110)
[2018-07-06 11:21] LABS: Bedside Glucose 125 mg/dL (70-110)
--- NOTE | 2018-07-06 11:46 | PCM.PN.ID ---
Subjective: C/o foot pain. No fever, no n/v/d. Going to OR today for TMA. - Physical Exam General: Alert, Cooperative, No apparent distress Lungs: Clear to auscultation, Normal air movement Cardiovascular: Regular rate, Regular Rhythm Abdomen: Soft, Non Tender, Non-Distended Skin: Ulcer/ Wound - foot wrapped Vital Signs Temp Pulse Resp BP Pulse Ox 97.7 F L 64 18 140/48 H 99 07/06/18 07:52 07/06/18 08:06 07/06/18 07:52 07/06/18 07:52 07/06/18 11:10 Oxygen Flow Rate (L/min) 2 Oxygen Delivery Method Nasal Cannula Weight: 112.12 kg Body Mass Index (BMI) 41.1 Intake and Output for Last 24 Hours 07/04/18 07/05/18 07/06/18 23:59 23:59 23:59 Intake Total 3884 / 3884 2796 / 2796 Output Total 200 / 200 300 / 300 Balance 3684 / 3684 2496 / 2496 Microbiology Past 72 Hours 07/04/18 19:05 Gram Stain - Final Wound - Right Foot Wound Culture - Preliminary Staphylococcus aureus Laboratory Tests Past 24 Hrs 07/06/18 07/06/18 07/06/18 02:58 02:58 02:58 WBC 7.5 RBC 3.04 L Hgb 8.6 L Hct 26.6 L MCV 87.5 MCH 28.3 MCHC 32.3 RDW 14.4 RDW Differential 44.3 H Plt Count 269 MPV 8.4 Immature Gran % (Auto) 0.500 Neut % (Auto) 68.9 Lymph % (Auto) 23.5 [place] % (Auto) 4.6 Eos % (Auto) 2.1 Baso % (Auto) 0.4 Absolute Neuts (auto) 5.1 Absolute Lymphs (auto) 1.75 Total Counted Not Reportable Sodium 144 Potassium 4.8 Chloride 112 H Carbon Dioxide 22.0 Anion Gap 10 BUN 21 H Creatinine 0.83 Estim Creat Clear Calc 60.81 Est GFR (MDRD) Af Amer 89 Est GFR (MDRD) Non-Af 74 BUN/Creatinine Ratio 25.4 H Glucose 109 H Calcium 7.4 L Vancomycin Trough 24.4 H POC Glucose 07/06/18 07/06/18 07/05/18 11:05 08:42 22:01 POC Glucose 125 H 78 191 H 07/05/18 07/05/18 16:26 11:40 POC Glucose 82 132 H Medical Necessity - Tobacco Use Smoking Status: Former smoker Tobacco Use: Cigarettes Route of nutrition/ use of supplements: [] Nutritional Intake: [] IV Site: [] Zuñiga Catheter: [] - Assessment/Plan Antibiotics: [] Assessment/Plan: [] 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 Pt going to OR for TMA with Dr. Sutherland today 07/06. Cont vanc/ceftriaxone/flagyl. If margins are clear of infection, plan on short course of po abx at discharge. Will follow, d/w case finishing machine adjuster
--- NOTE | 2018-07-06 14:51 | NURSING ---
call placed to AC and report given to Delores Loepz whom is taking over care for this paritnet at this time
--- NOTE | 2018-07-06 15:13 | CHAPLAIN ---
Type of Pastoral Visit _x__ Initial Visit ___ Follow-up Visit ___ On-call Visit ___ General Patient Visit ___ Spiritual Assessment ___ Family Conference ___ Bereavement ___ Rapid Response ___ Code Blue ___ Other (describe below) Pastoral Care Referral From _x__ Patient ___ Family ___ Nurse ___ Physician ___ Diffusion Furnace Operator ___ Professional Wrestler ___ Other (describe below) Sacrament/Intervention _x__ Active listening ___ Anointing ___ Oriental Orthodox ___ Bereavement ___ Communion ___ Margarita exploration ___ _x__ Life review _x__ Prayer ___ Reconciliation ___ Sacrament of Sick _x__ Supportive presence ___ Wedding ___ Other (describe below) Pastoral Comments met patient prior to her surgery; pt offered her recent history and some family disappointments/stress; pt welcomed prayer as surgery transport came to get her for her surgery; pt admitted that she cried a lot when she was told about decision to remove part of her foot
[2018-07-06 16:12] LABS: Vancomycin, Random Level 29.6 ug/mL (0.0-15.0)
[2018-07-06] MEDS: Bupivacaine Mpf 0.5% 30 ML VIAL (17:00)
--- NOTE | 2018-07-06 17:14 | PCM.OPRPT ---
Report of Operation Date of Procedure: 07/06/18 Pre-Operative Diagnosis: Osteomyelitis 2nd and 3rd metatarsal heads right foot. Right foot deformity Post-Operative Diagnosis: Same Surgery/Procedure Performed:: Debridement of all nonviable, infected and necrotic tissue right foot. 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 Albaro Dias Type of Anesthesia:: General Specimen's removed: -Amputated forefoot, right sent to pathology. -Bone culture of the 2nd and 3rd metatarsal heads sent to microbiology. -Clearance fragments of the 2nd and 3rd metatarsals sent to pathology and microbiology Estimated Blood Loss (mL): 5mL Description of Procedure: Indications: This is a 63 year old female with diabetic neuropathy, obesity and other chronic medical problems who has significant foot deformity due to previous partial 1st ray amputation and 2nd and 3rd toe amputations on the right foot. she relates to a chronic ulceration sub 2nd metatarsal head on the right foot for ~6 years, she relates this does not heal, and now MRI is showing possible osteomyelitis to the 2nd and 3rd metatarsal heads. She has cellulitis, and wound has cultured MRSA. Patient relates she would like to proceed with the transmetatarsal amputation due to the chronic nature of this condition. We discussed this procedure in detail, reviewed the rationale of this, possible benefits vs risks, goals and expectations. Advised the patient the risks and potential complications included but are not limited to pain, chronic pain, bleeding, deformity, transfer lesions, nonhealing, dealyed healing, ulceration, further infection, need for further surgery, need for further surgery, charcot neuroarthropathy, weakness, instability, problems with shoes and walking, blood clots, CRPS, allergic reactions, loss of limb, loss of life. Patient expressed understanding and agreement, and able to repeat back. Reviewed estimated healing time - advised she will need to remain strict nonweightbearing to the right foot until this is completely healed, and also recommended going to nursing facility post op until this is healed. She expressed understanding and agreement and elects to proceed with this procedure. The consent form was reviewed with her, and she freely signed it. No guarantees were given nor implied. Operative Report: Pt was transported to the operating room and was placed on the operating room table in the supine position. The patient was carefully secured to the operating room table with a safety belt around her waist. Patient received general anesthesia per the anesthesia team. A well padding pneumatic tourniquet was applied around the right ankle. The right foot was then prepped, drapped, and scrubbed in the usual aseptic manner. A timeout was performed and the patient was properly identified and the surgical plan was confirmed. Attention was then directed towards the right foot, it was noted that the hallux and distal 1st metatarsal as well as the 2nd and 3rd toes were absent consistent with previous amputations. There was an ulceration sub 2nd metatarsal head. Using a #15 scalpel blade a circumferential incision was made around the distal right forefoot with care to preserve the viable plantar and dorsal skin for later flap closure. The incision was carried directly to bone. Next using a Cruz elevator the soft tissues were reflected off of the first, second, third, fourth, and fifth metatarsals. Then using a powered sagittal saw, osteotomies were made through the shafts of the first, second, third, fourth, and fifth metatarsals with care taken to preserve the parabola of the right foot. These osteotomies were made with a slight bevel from dorsal distal and plantar proximal. The first metatarsal was beveled medially, and the 5th metatarsal was beveled laterally. The bone at this level appeared white, hard, viable, bleeding, with normal healthy appearing cortical bone and marrow cavity. At this time using a #15 scalpel blade the soft tissue attachments to the distal right forefoot were removed again taking care to preserve the skin and subcutaneous tissue of the plantar and dorsal flap. The right forefoot was then removed as passed from the surgical field and sent as a specimen to pathology, a bone culture was obtained from the 2nd metatarsal head which was noted to be nonviable, softer than normal with some necrosis present. There was also noted to be a chronic abscess sub 2nd metatarsal head, which was excised. All tendons were cut proximal to the surgical wound. The remaining soft tissues and metatarsals to the right foot appeared healthy, viable, clean, hard, bleeding, free of infection. A clearance fragment was obtained from the 2nd and 3rd metatarsal shafts - sent to both pathology and microbiology. The site was flushed with copious amount of normal saline solution. The flap edges were remodeled using a 15 scalpel blade do the dorsal and plantar flaps could be properly aligned without tension. A few 3-0 Vicryl sutures were placed as retention sutures to reapproximate the subcutaneous tissues. The skin of the dorsal and plantar flaps were reapproximated using skin frank. At this time a surgical dressing of Betadine soaked adaptic, 4x4 gauze, webril, and [place] wrap were applied to the right foot. The patient tolerated the above procedure and anesthesia well with no complications. Patient was transported to the recovery Room with vital signs stable and in good condition. Post operative orders were placed. No weightbearing right foot, keep right foot elevated. Postoperative xrays of the right foot were obtained and reviewed- s/p TMA with a maintained metatarsal parabola, no complications seen. Post-op instructions were reviewed. Podiatry will continue follow the patient on as an inpatient at this time. Grafts/Implants Used: None - Complications None
--- NOTE | 2018-07-06 17:55 | RAD_ITS ---
STUDY: X-RAY - RIGHT FOOT CLINICAL: Female, 63 years old. Post operative assessment TECHNIQUE: Three view(s) of the foot were obtained. COMPARISON: July 04, 2018 FINDINGS: Bones: There is new amputation of the distal second through fifth metatarsals and fourth and fifth toes. There has been new surgical amputation of the mid first metatarsal. There is a moderate spur off the inferior calcaneus. Joints: There are mild degenerative changes in the midfoot. Soft tissues: There is diffuse soft tissue swelling. Air is present in the soft tissues near the first metatarsal. There are skin frank distally. Foreign body: None RAD/Foot min 3 Views IMPRESSION: There are surgical changes in the right foot after amputation of the distal second through fifth metatarsals and mid first metatarsal. Electronically Signed: Mariza Lovelace MD at 18:55 EST Tel Direct: [phone], Service support ,
[2018-07-06 18:15] LABS: Hematocrit 29.4 % (37-47); Hemoglobin 9.4 g/dl (12.0-15.0)
[2018-07-06 18:16] LABS: Bedside Glucose 75 mg/dL (70-110)
[2018-07-06 18:25] LABS: Bedside Glucose 81 mg/dL (70-110)
--- NOTE | 2018-07-06 19:03 | PCM.RX.CS ---
Consult Pharmacy has been consulted to manage selected antiobiotic: Vancomycin Type of Consult: Follow-up Prior Doses of Antibiotics Received/Current Regimen: 06/05 0400 Labs: Sodium 144 mmol/L (136-145) 07/06/18 02:58 Potassium 4.8 mmol/L (3.5-5.1) 07/06/18 02:58 Chloride 112 mmol/L (98-107) H 07/06/18 02:58 Carbon Dioxide 22.0 mmol/L (21.0-32.0) 07/06/18 02:58 Anion Gap 10 (5-15) 07/06/18 02:58 BUN 21 mg/dL (7-18) H 07/06/18 02:58 Creatinine 0.83 mg/dL (0.55-1.02) 07/06/18 02:58 Est GFR (MDRD) Af Amer 89 mL/min (>60) 07/06/18 02:58 Est GFR (MDRD) Non-Af 74 mL/min (>60) 07/06/18 02:58 BUN/Creatinine Ratio 25.4 RATIO (10-20) H 07/06/18 02:58 Glucose 109 mg/dL (74-106) H 07/06/18 02:58 Vancomycin Trough 24.4 ug/mL (5.0-15.0) H 07/06/18 02:58 Random Vancomycin 29.6 ug/mL (0.0-15.0) H 07/06/18 15:35 Microbiology: Microbiology 07/04/18 14:20 Blood Culture (Wb) - Anticubital Left Blood Culture - Preliminary No growth in 48 hours. 07/04/18 19:05 Wound - Right Foot Gram Stain - Final 07/04/18 19:05 Wound - Right Foot Wound Culture - Preliminary Staphylococcus aureus Goal Trough: 10-15 mcg/mL Pharmacy Plan for Drug Dosing: Random level 07/06 at 1530 was 29.6. Dose after previous high trough level was not held. Will do another random level in 24 hours Pharmacy Service will continue to monitor and adjust dosing as required.
[2018-07-06] MEDS: Ipratropium/Albuterol Sulfate 3 ML AMPUL.NEB INHALATION (19:22)
--- NOTE | 2018-07-06 20:10 | NURSING ---
While this nurse and SYSTEMS PROGRAMMER were in the room with pt she stated that she wanted to use the BR. SYSTEMS PROGRAMMER brought in a BSC. This nurse repeated to the pt that she is not able to put any weight on her right foot. Pt states she understood. With the help of the SYSTEMS PROGRAMMER, this nurse and the walker the pt stood upright and we began to pivot her towards her left foot, the non affected side. After returning back to transfer pt back to bed, during her pivot she dropped her right foot. 10 minutes or so later this nurse was called in to find a pillow and dressing saturated with blood. This nurse informed Charge nurse shreyas, and a dressing change was performed with ABD pads, Kerlix and Nitish wraps. Foot was elevated with 2 pillows. About an hour later this nurse was called into the same room where the pt had once again bled through her dressing and unto her pillow. Was c/o throbbing pain. This nurse called Dr. Sutherland to inform him and he ordered a bulky dressing of Guaze, ABD pads, Kerlix and Nitish Wraps to be reinforced several times on top of one another. Also to make sure that pt keeps right leg above heart level. Orders have been carried out and will continue to monitor pt.
[2018-07-06] MEDS: 0.9% NaCl Peripheral Flush Adult/Peds IV (21:43)
[2018-07-06] MEDS: Atorvastatin Calcium 20 MG Tablet PO (21:43)
[2018-07-06] MEDS: Pramipexole Di-HCl 0.25 MG Tablet PO (21:43)
[2018-07-06] MEDS: Insulin Lispro 100 UNIT/ML INSULN.PEN SC (21:51)
[2018-07-07] VITALS (10 sets, daily range): BP systolic 112–146; BP diastolic 32–49; PULSE 65–82; RESP 14–18; TEMP 36.6–36.9; O2SAT 91–98
[2018-07-07 00:11] LABS: Bedside Glucose 188 mg/dL (70-110)
[2018-07-07] MEDS: Ipratropium/Albuterol Sulfate 3 ML AMPUL.NEB INHALATION ×2 (00:25→06:52)
[2018-07-07] MEDS: traZODone 100 MG Tablet 200 MG PO (01:25)
[2018-07-07] MEDS: Acetaminophen 500 MG Tablet 1000 MG PO ×4 (01:25→21:06)
[2018-07-07] MEDS: oxyCODONE 5 MG Tablet PO ×2 (03:51→16:48)
[2018-07-07] MEDS: metroNIDAZOLE 500 MG Tablet PO ×3 (07:06→21:06)
[2018-07-07 07:21] LABS: Bedside Glucose 138 mg/dL (70-110)
[2018-07-07 08:56] LABS: Absolute Lymphocyte Count 1.58 X10^3/ul (0.83-4.51); Absolute Neutrophil Count 5.4 X10^3/uL (2.0-7.7); Basophil# 0.02 X10^3/uL; Basophil% 0.3 % (0-1); Eosinophil# 0.14 X10^3/uL; Eosinophils% 1.8 % (0-5); Hematocrit 26.5 % (37-47); Hemoglobin 8.5 g/dl (12.0-15.0); Lymphocyte # 1.58 X10^3/ul (4.0); Lymphocyte % 20.8 % (19-41); Mean Corp Hgb Conc 32.1 g/gl (32-36); Mean Corpuscular Hgb 28.1 pg (27.0-32.0); Mean Corpuscular Volume 87.7 fL (81-99); Mean Platelet Vol. 8.2 fl (6.2-12.0); Monocyte# 0.39 X10^3/uL; Monocyte% 5.1 % (0-10); Neutrophil # 5.43 X10^3/uL (2.7-7.7); Neutrophil % 71.7 % (47-70); Platelet Count 201 K/mm3 (150-450); RBC Distribution Width SD 47.4 fl (35.1-43.9); Red Blood Count 3.02 M/mm3 (4.2-5.4); White Blood Count 7.6 K/mm3 (4.4-11.0)
[2018-07-07 08:58] LABS: POSITIVE COUNT NO; POSITIVE DIFFERENTIAL NO; POSITIVE MORPHOLOGY NO
--- NOTE | 2018-07-07 08:58 | PCM.PROGNOTE ---
Subjective: Chief complaint: Follow-up after admission for acute right foot MRSA cellulitis/osteomyelitis of the second and third metatarsal heads osteomyelitis status post debridement and transmetatarsal amputation of the right foot. Patient seen and examined. No acute events overnight. She complained of right foot pain, 10 out of 10 in severity, sharp pain, not radiating, no associated symptoms. She denies fever chills. She denies chest pain or shortness of breath. Her vital signs are stable. - Physical Exam General: Alert, Oriented x3, Cooperative, - - She is in moderate to severe pain. HEENT: Atraumatic, PERRLA, EOMI, Normocephalic Oral: Moist Mucosa, No Gingival or Mucosal Lesions/ Ulcerations Neck: Supple, No JVD, Negative Carotid Bruits, Trachea Midline, Thyroid Normal Size and Texture Lungs: Clear to auscultation, No rhonchi, No wheeze, No rales, Diminished Cardiovascular: Regular rate, Regular Rhythm, Normal S1, Normal S2, No murmurs, PMI Normal Abdomen: Bowel Sounds Present, Soft, Non Tender, Non-Distended, No Hepato-splenomegaly, Obese Extremities: No clubbing, No cyanosis, Edema Skin: No rashes, Ulcer/ Wound Lymphatic: No Cervical, Supraclavicular, or Inguinal Adenopathy Neurological: Cranial nerves II-XII grossly intact, Motor Exam 5/5 strength throughout Psych/Mental Status: Normal Affect, Appropriate, Alert and oriented to time, place, person, mood and affect Vital Signs Temp Pulse Resp BP Pulse Ox 97.9 F 70 14 115/41 L 92 07/07/18 07:12 07/07/18 07:12 07/07/18 07:12 07/07/18 07:12 07/07/18 07:12 Oxygen Flow Rate (L/min) 2 Oxygen Delivery Method Room Air Weight: 247 lb 2.916 oz Body Mass Index (BMI) 41.1 Finger Stick Blood Glucose 81 Intake and Output for Last 24 Hours 07/05/18 07/06/18 07/07/18 23:59 23:59 23:59 Intake Total 3884 / 3884 3396 / 3396 500 / 500 Output Total 200 / 200 300 / 300 Balance 3684 / 3684 3096 / 3096 500 / 500 Microbiology Past 72 Hours 07/04/18 15:38 Blood Culture - Preliminary Blood Culture (Wb) - Anticubital Right No growth in 48 hours. 07/04/18 19:05 Gram Stain - Final Wound - Right Foot Wound Culture - Final Meth. resistant Staph. aureus 07/04/18 14:20 Blood Culture - Preliminary Blood Culture (Wb) - Anticubital Left No growth in 48 hours. Laboratory Tests Past 24 Hrs 07/06/18 07/06/18 07/06/18 15:35 17:50 17:50 WBC RBC Hgb 9.4 L Hct 29.4 L MCV MCH MCHC RDW RDW Differential Plt Count MPV Immature Gran % (Auto) Neut % (Auto) Lymph % (Auto) [place] % (Auto) Eos % (Auto) Baso % (Auto) Absolute Neuts (auto) Absolute Lymphs (auto) Total Counted Sodium Potassium Chloride Carbon Dioxide Anion Gap BUN Creatinine Est GFR (MDRD) Af Amer Est GFR (MDRD) Non-Af BUN/Creatinine Ratio Glucose Calcium Random Vancomycin 29.6 H Blood Type O POSITIVE Antibody Screen NEGATIVE 07/07/18 07/07/18 07/07/18 08:35 08:35 08:35 WBC 7.6 RBC 3.02 L Hgb 8.5 L Hct 26.5 L MCV 87.7 MCH 28.1 MCHC 32.1 RDW 15.0 H RDW Differential 47.4 H Plt Count 201 MPV 8.2 Immature Gran % (Auto) 0.300 Neut % (Auto) 71.7 H Lymph % (Auto) 20.8 [place] % (Auto) 5.1 Eos % (Auto) 1.8 Baso % (Auto) 0.3 Absolute Neuts (auto) 5.4 Absolute Lymphs (auto) 1.58 Total Counted Not Reportable Sodium Pending Potassium Pending Chloride Pending Carbon Dioxide Pending Anion Gap Pending BUN Pending Creatinine Pending Est GFR (MDRD) Af Amer Pending Est GFR (MDRD) Non-Af Pending BUN/Creatinine Ratio Pending Glucose Pending Calcium Pending Random Vancomycin Pending Blood Type Antibody Screen POC Glucose 07/07/18 07/06/18 07/06/18 07:10 21:50 18:20 POC Glucose 138 H 188 H 81 07/06/18 07/06/18 17:45 11:05 POC Glucose 75 125 H Medical Necessity - Tobacco Use Smoking Status: Former smoker Tobacco Use: Cigarettes Assessment/Plan This is a 63 years old female patient admitted because of worsening left leg redness, swelling and she was found to have acute right lower extremity cellulitis, right diabetic foot nonhealing probably infected ulcer with failure of outpatient therapy. #1 acute right foot cellulitis/MRSA osteomyelitis of the second and third metatarsal heads/nonhealing ulcer of the right foot: Status post debridement and transmetatarsal amputation of the right foot, postoperative day 1. She remained on IV Rocephin, Flagyl and vancomycin. Her vital signs are stable, afebrile. Her pain is not controlled, she is complaining of 10 out of 10 right foot pain. Blood culture revealed no growth in 48 hours. Wound culture revealed MRSA. Podiatry medicine and infectious disease on the case. Plan: Continue same treatment, start IV morphine as needed for pain. #3 CAD status post stents: She had stents back in 2002. She denies chest pain or shortness of breath. EKG reviewed, showed no acute ischemic changes. Continue aspirin, statins, Plavix, lisinopril. #4 type 2 diabetes mellitus: She is on ADA diet, Lantus insulin as well as pre-meal Humalog 3 times daily. Blood sugar has been stable. Plan to continue same treatment. #5 hypertension: Blood pressure stable, continue lisinopril and IV labetalol as needed. #6 chronic anemia: It is normocytic anemia. Serum iron is slightly below normal range, iron saturation and ferritin are normal. It is likely anemia of chronic disease. Today's hemoglobin is 8.5 g/dL. No evidence of active bleeding, she is a symptomatic. Plan to transfuse if hemoglobin less than 8 g/dL. #7 history of CVA: Stable, no acute issues, continue aspirin, Plavix and statins. #8 COPD: Start albuterol as needed, DuoNeb every 6 hours, incentive spirometer, chest physiotherapy. #9 anxiety/depression: Continue Zoloft, trazodone. #10 DVT prophylaxis: Subcu Lovenox. This note was generated with [employer] software. It may contain incorrect words, spelling, and punctuation that were not noted in checking the note before signing. Code Visit Inpatient E&M: 26534 Subs Hosp L2
[2018-07-07 09:21] LABS: Vancomycin, Random Level 20.2 ug/mL (0.0-15.0)
[2018-07-07 09:29] LABS: Anion Gap 4 (5-15); BUN 22 mg/dL (7-18); Calcium,Total 7.3 mg/dL (8.5-10.1); Chloride 111 mmol/L (98-107); Creatinine, Serum 1.22 mg/dL (0.55-1.02); EST Glomerular Filtration Rate 47 mL/min (>60); Est Glom Filt Rate - Afr Amer 57 mL/min (>60); Estimated Creatinine Clearance 81.37 ml/min; Glucose 136 mg/dL (74-106); Potassium 4.1 mmol/L (3.5-5.1); Sodium Level 140 mmol/L (136-145)
[2018-07-07] MEDS: Lisinopril 5 MG Tablet PO (09:29)
[2018-07-07] MEDS: Gabapentin 600 MG Tablet PO ×4 (09:29→21:06)
[2018-07-07] MEDS: Aspirin 81 MG TAB.CHEW PO (09:29)
[2018-07-07] MEDS: Morphine 2 MG/ML Syringe IV ×3 (09:29→20:34)
[2018-07-07] MEDS: Enoxaparin 40 MG/0.4 ML Syringe SC (09:29)
[2018-07-07] MEDS: Clopidogrel Bisulfate 75 MG Tablet PO (09:29)
[2018-07-07] MEDS: Insulin Lispro 100 UNIT/ML INSULN.PEN 13 UNIT SC ×2 (09:29→12:05)
[2018-07-07] MEDS: Sertraline 100 MG Tablet 200 MG PO (09:29)
--- NOTE | 2018-07-07 10:13 | PCM.PROGNOTE ---
Subjective: Patient was seen this morning for follow up on right foot TMA. She did have bleeding last night, states she bumped her foot when going to bathroom. Nurse called me, and dressing was changed, noticed strikethrough again, and a bulky dressing was applied with strict elevation of the foot - bleeding has been controlled since, no strikethrough, hgb 8.5 (was 8.6 yesterday). She relates pain is now controlled with morphine, she has no other complaints. She was resting in bed comfortably. - Physical Exam General: Alert, Oriented x3, Cooperative, No apparent distress Extremities: - - Dressing right foot is clean, dry and intact with no strikethrough, heel is visible and no evidence of break down, normal temperature. Calf soft and supple bilateral. Psych/Mental Status: Normal Affect, Alert and oriented to time, place, person, mood and affect - Patient resting comfortably in bed able to carry on normal conversation. Vital Signs Temp Pulse Resp BP Pulse Ox 98.4 F 72 16 133/43 H 95 07/07/18 09:24 07/07/18 09:24 07/07/18 09:38 07/07/18 09:24 07/07/18 09:24 Oxygen Flow Rate (L/min) 1 Oxygen Delivery Method Nasal Cannula Weight: 112.12 kg Body Mass Index (BMI) 41.1 Finger Stick Blood Glucose 81 Intake and Output for Last 24 Hours 07/05/18 07/06/18 07/07/18 23:59 23:59 23:59 Intake Total 3884 / 3884 3396 / 3396 500 / 500 Output Total 200 / 200 300 / 300 Balance 3684 / 3684 3096 / 3096 500 / 500 Microbiology Past 72 Hours 07/04/18 19:05 Gram Stain - Final Wound - Right Foot Wound Culture - Final Meth. resistant Staph. aureus Anaerobic Culture - Preliminary Checking for anaerobes, further studies to follow. 07/04/18 15:38 Blood Culture - Preliminary Blood Culture (Wb) - Anticubital Right No growth in 48 hours. 07/04/18 14:20 Blood Culture - Preliminary Blood Culture (Wb) - Anticubital Left No growth in 48 hours. Laboratory Tests Past 24 Hrs 07/06/18 07/06/18 07/06/18 15:35 17:50 17:50 WBC RBC Hgb 9.4 L Hct 29.4 L MCV MCH MCHC RDW RDW Differential Plt Count MPV Immature Gran % (Auto) Neut % (Auto) Lymph % (Auto) [place] % (Auto) Eos % (Auto) Baso % (Auto) Absolute Neuts (auto) Absolute Lymphs (auto) Total Counted Sodium Potassium Chloride Carbon Dioxide Anion Gap BUN Creatinine Estim Creat Clear Calc Est GFR (MDRD) Af Amer Est GFR (MDRD) Non-Af BUN/Creatinine Ratio Glucose Calcium Random Vancomycin 29.6 H Blood Type O POSITIVE Antibody Screen NEGATIVE 07/07/18 07/07/18 07/07/18 08:35 08:35 08:35 WBC 7.6 RBC 3.02 L Hgb 8.5 L Hct 26.5 L MCV 87.7 MCH 28.1 MCHC 32.1 RDW 15.0 H RDW Differential 47.4 H Plt Count 201 MPV 8.2 Immature Gran % (Auto) 0.300 Neut % (Auto) 71.7 H Lymph % (Auto) 20.8 [place] % (Auto) 5.1 Eos % (Auto) 1.8 Baso % (Auto) 0.3 Absolute Neuts (auto) 5.4 Absolute Lymphs (auto) 1.58 Total Counted Not Reportable Sodium 140 Potassium 4.1 Chloride 111 H Carbon Dioxide 25.0 Anion Gap 4 L BUN 22 H Creatinine 1.22 H Estim Creat Clear Calc 81.37 Est GFR (MDRD) Af Amer 57 L Est GFR (MDRD) Non-Af 47 L BUN/Creatinine Ratio 18.0 Glucose 136 H Calcium 7.3 L Random Vancomycin 20.2 H Blood Type Antibody Screen POC Glucose 07/07/18 07/06/18 07/06/18 07:10 21:50 18:20 POC Glucose 138 H 188 H 81 07/06/18 07/06/18 17:45 11:05 POC Glucose 75 125 H Medical Necessity - Tobacco Use Smoking Status: Former smoker Tobacco Use: Cigarettes Assessment/Plan Chronic ulceration sub 2nd metatarsal head right foot & significant foot deformity now s/p TMA on 07/06/18 Cellulitis right lower extremity - improving Diabetic Neuropathy Obesity Dressing is clean, dry and intact with no strikethrough and no evidence of active bleeding. Due to bleeding last night, left dressing clean, dry and intact at this time and will plan to change tomorrow. H&H stable. Follow cultures, clinically bone at clearance margins appears heathy and viable. Infectious Disease service following. Strict nonweightbearing right foot, and must keep the right foot elevated with pillows. Continue with pain management. Podiatry will continue to follow.
[2018-07-07] MEDS: 0.9% Normal Saline 1,000 ML 75 ML IV (10:33)
[2018-07-07 12:06] LABS: Bedside Glucose 121 mg/dL (70-110)
--- NOTE | 2018-07-07 12:26 | PHA.PHARE_ITS ---
Consult Pharmacy has been consulted to manage selected antiobiotic: Vancomycin Type of Consult: Follow-up Suspected Infection: Osteomyelitis Prior Doses of Antibiotics Received/Current Regimen: VANCOMYCIN 1500MG IV 07/06 @0350 Labs: Sodium 140 mmol/L (136-145) 07/07/18 08:35 Potassium 4.1 mmol/L (3.5-5.1) 07/07/18 08:35 Chloride 111 mmol/L (98-107) H 07/07/18 08:35 Carbon Dioxide 25.0 mmol/L (21.0-32.0) 07/07/18 08:35 Anion Gap 4 (5-15) L 07/07/18 08:35 BUN 22 mg/dL (7-18) H 07/07/18 08:35 Creatinine 1.22 mg/dL (0.55-1.02) H 07/07/18 08:35 Est GFR (MDRD) Af Amer 57 mL/min (>60) L 07/07/18 08:35 Est GFR (MDRD) Non-Af 47 mL/min (>60) L 07/07/18 08:35 BUN/Creatinine Ratio 18.0 RATIO (10-20) 07/07/18 08:35 Glucose 136 mg/dL (74-106) H 07/07/18 08:35 Vancomycin Trough 24.4 ug/mL (5.0-15.0) H 07/06/18 02:58 Random Vancomycin 20.2 ug/mL (0.0-15.0) H 07/07/18 08:35 Microbiology: Microbiology 07/06/18 Unknown Biopsy - Bone Wound Culture - Preliminary No growth-Final to follow 07/06/18 Unknown Biopsy - Bone Wound Culture - Preliminary No growth-Final to follow 07/04/18 19:05 Wound - Right Foot Gram Stain - Final 07/04/18 19:05 Wound - Right Foot Wound Culture - Final Meth. resistant Staph. aureus 07/04/18 19:05 Wound - Right Foot Anaerobic Culture - Preliminary Checking for anaerobes, further studies to follow. 07/04/18 15:38 Blood Culture (Wb) - Anticubital Right Blood Culture - Preliminary No growth in 48 hours. 07/04/18 14:20 Blood Culture (Wb) - Anticubital Left Blood Culture - Prelim inary No growth in 48 hours. Goal Trough: 15-20 mcg/mL Pharmacy Plan for Drug Dosing: The patient had a random level come back 28hrs from last dose administered, which resulted in a value of 20.2. The patient is being treated for osteomyelitis per ID note. The patient's trough is just slightly above her goal of 15-20. Will plan on scheduling vancomycin for this evening to give the patient some more time to clear the vancomycin prior to giving another dose. Will start vancomycin 1000mg IV Q24hrs, which will give a predicted trough of 16.2 PLAN/RECOMMENDATIONS 1. Vancomycin 1000,g IV Q24hrs to start 07/07 @2099 2. Trough scheduled for 07/09 @2029, prior to 3rd dose of new regimen 3. Pharmacy Service will continue to monitor and adjust dosing as required.
--- NOTE | 2018-07-07 13:32 | CASEMGMT ---
Social Work Referred by game manager for SNF placement. Met with patient in room. This manager social services introduced self as well as manager social services role. Patient reporting to be unable to return back home with spouse. Dr. Sutherland is also recommending SNF stay and reporting that patient will not discharge until early next week. Patient reporting that first choice would be [facility] and second choice would be [facility]. This manager social services communicating that due to the weekend that referrals are not able to be made on this day. Patient aware that social work will follow up to make needed referrals on Monday. Support given. Social work to continue to follow. Analy Mcnally, GRADUATE FELLOW, FRUIT W[employer]ER
[2018-07-07] MEDS: 0.9% NaCl Peripheral Flush Adult/Peds IV ×2 (14:06→20:35)
[2018-07-07 16:51] LABS: Bedside Glucose 87 mg/dL (70-110)
[2018-07-07] MEDS: Vancomycin IV 1,000 MG/200 ML BAG 200 MG IV (20:35)
[2018-07-07] MEDS: Atorvastatin Calcium 20 MG Tablet PO (21:06)
[2018-07-07] MEDS: Pramipexole Di-HCl 0.25 MG Tablet PO (21:06)
[2018-07-07] MEDS: Insulin Lispro 100 UNIT/ML INSULN.PEN SC (21:12)
[2018-07-07 21:20] LABS: Bedside Glucose 151 mg/dL (70-110)
[2018-07-08] VITALS (7 sets, daily range): BP systolic 135–152; BP diastolic 53–60; PULSE 68–74; RESP 18; TEMP 36.7–36.8; O2SAT 98–100
[2018-07-08] MEDS: Morphine 2 MG/ML Syringe IV (02:00)
[2018-07-08] MEDS: 0.9% NaCl Peripheral Flush Adult/Peds IV ×4 (02:00→21:14)
[2018-07-08] MEDS: Acetaminophen 500 MG Tablet 1000 MG PO ×3 (06:13→21:13)
[2018-07-08] MEDS: metroNIDAZOLE 500 MG Tablet PO ×3 (06:13→21:12)
[2018-07-08 06:39] LABS: Hematocrit 27.2 % (37-47); Hemoglobin 8.7 g/dl (12.0-15.0)
[2018-07-08 06:58] LABS: Anion Gap 8 (5-15); BUN 22 mg/dL (7-18); Calcium,Total 7.4 mg/dL (8.5-10.1); Chloride 112 mmol/L (98-107); Creatinine, Serum 0.96 mg/dL (0.55-1.02); EST Glomerular Filtration Rate 62 mL/min (>60); Est Glom Filt Rate - Afr Amer 75 mL/min (>60); Estimated Creatinine Clearance 103.41 ml/min; Glucose 118 mg/dL (74-106); Potassium 4.2 mmol/L (3.5-5.1); Sodium Level 143 mmol/L (136-145)
[2018-07-08 07:35] LABS: Bedside Glucose 130 mg/dL (70-110)
[2018-07-08] MEDS: oxyCODONE 5 MG Tablet PO ×3 (07:43→21:13)
[2018-07-08] MEDS: Insulin Lispro 100 UNIT/ML INSULN.PEN 13 UNIT SC ×3 (07:43→16:44)
--- NOTE | 2018-07-08 09:11 | PCM.PROGNOTE ---
Subjective: Chief complaint: Follow-up after admission for acute right foot MRSA cellulitis/osteomyelitis of the second and third metatarsal heads osteomyelitis status post debridement and transmetatarsal amputation of the right foot. Patient seen and examined. No acute events overnight. Today, she complained of diarrhea and abdominal pain. She had almost 8-10 times of watery stool since yesterday. She complains of mild vague mid abdominal pain. Still having right foot pain but improved with IV morphine. Her vital signs are stable. - Physical Exam General: Alert, Oriented x3, Cooperative, No apparent distress HEENT: Atraumatic, PERRLA, EOMI, Normocephalic Oral: Moist Mucosa, No Gingival or Mucosal Lesions/ Ulcerations Neck: Supple, No JVD, Negative Carotid Bruits, Thyroid Normal Size and Texture Lungs: Clear to auscultation, No rhonchi, No wheeze, No rales, Diminished Cardiovascular: Regular rate, Regular Rhythm, Normal S1, Normal S2 Abdomen: Bowel Sounds Present, Soft, Non Tender, Non-Distended, No Hepato-splenomegaly Extremities: No clubbing, No cyanosis, Edema Skin: No rashes, Ulcer/ Wound Lymphatic: No Cervical, Supraclavicular, or Inguinal Adenopathy Neurological: Cranial nerves II-XII grossly intact, Neuro grossly intact Psych/Mental Status: Normal Affect, Appropriate Vital Signs Temp Pulse Resp BP Pulse Ox 98.1 F 71 18 146/59 H 98 07/08/18 07:46 07/08/18 07:46 07/08/18 07:46 07/08/18 07:46 07/08/18 07:46 Oxygen Flow Rate (L/min) 2 Oxygen Delivery Method Nasal Cannula Weight: 247 lb 2.916 oz Body Mass Index (BMI) 41.1 Finger Stick Blood Glucose 81 Intake and Output for Last 24 Hours 07/06/18 07/07/18 07/08/18 23:59 23:59 23:59 Intake Total 3396 / 3396 500 / 500 1635 / 1635 Output Total 300 / 300 Balance 3096 / 3096 500 / 500 1635 / 1635 Microbiology Past 72 Hours 07/06/18 Unknown Gram Stain - Final Biopsy - Bone Wound Culture - Preliminary No growth-Final to follow 07/06/18 Unknown Gram Stain - Final Biopsy - Bone Wound Culture - Preliminary No growth-Final to follow 07/06/18 Unknown Gram Stain - Final Biopsy - Bone 07/04/18 19:05 Gram Stain - Final Wound - Right Foot Wound Culture - Final Meth. resistant Staph. aureus Anaerobic Culture - Preliminary Checking for anaerobes, further studies to follow. 07/04/18 15:38 Blood Culture - Preliminary Blood Culture (Wb) - Anticubital Right No growth in 48 hours. 07/04/18 14:20 Blood Culture - Preliminary Blood Culture (Wb) - Anticubital Left No growth in 48 hours. Laboratory Tests Past 24 Hrs 07/07/18 07/07/18 07/08/18 08:35 08:35 05:30 Hgb 8.7 L Hct 27.2 L Sodium 140 Potassium 4.1 Chloride 111 H Carbon Dioxide 25.0 Anion Gap 4 L BUN 22 H Creatinine 1.22 H Estim Creat Clear Calc 81.37 Est GFR (MDRD) Af Amer 57 L Est GFR (MDRD) Non-Af 47 L BUN/Creatinine Ratio 18.0 Glucose 136 H Calcium 7.3 L Random Vancomycin 20.2 H 07/08/18 05:30 Hgb Hct Sodium 143 Potassium 4.2 Chloride 112 H Carbon Dioxide 23.0 Anion Gap 8 BUN 22 H Creatinine 0.96 Estim Creat Clear Calc 103.41 Est GFR (MDRD) Af Amer 75 Est GFR (MDRD) Non-Af 62 BUN/Creatinine Ratio 23.0 H Glucose 118 H Calcium 7.4 L Random Vancomycin POC Glucose 07/08/18 07/07/18 07/07/18 07:32 21:03 16:42 POC Glucose 130 H 151 H 87 07/07/18 11:53 POC Glucose 121 H Medical Necessity - Tobacco Use Smoking Status: Former smoker Tobacco Use: Cigarettes Assessment/Plan This is a 63 years old female patient admitted because of worsening left leg redness, swelling and she was found to have acute right lower extremity cellulitis, right diabetic foot nonhealing probably infected ulcer with failure of outpatient therapy. #1 acute right foot cellulitis/MRSA osteomyelitis of the second and third metatarsal heads/nonhealing ulcer of the right foot: Status post debridement and transmetatarsal amputation of the right foot, postoperative day 2. She remained on IV Rocephin, Flagyl and vancomycin. Her vital signs are stable, afebrile. Blood culture revealed no growth in 48 hours. Wound culture revealed MRSA. Preliminary bone biopsy culture showed no growth, final is pending. Podiatry medicine and infectious disease on the case. Plan: Continue same treatment, check stool for C. difficile. #3 CAD status post stents: She had stents back in 2002. She denies chest pain or shortness of breath. EKG reviewed, showed no acute ischemic changes. Continue aspirin, statins, Plavix, lisinopril. #4 type 2 diabetes mellitus: She is on ADA diet, Lantus insulin as well as pre-meal Humalog 3 times daily. Blood sugar has been stable. #5 hypertension: Blood pressure stable, continue lisinopril and IV labetalol as needed. #6 chronic anemia: It is normocytic anemia. Serum iron is slightly below normal range, iron saturation and ferritin are normal. It is likely anemia of chronic disease. Today's hemoglobin is 8.7 g/dL, stable. No evidence of active bleeding, she is a symptomatic. #7 history of CVA: Stable, no acute issues, continue aspirin, Plavix and statins. #8 COPD: Start albuterol as needed, DuoNeb every 6 hours, incentive spirometer, chest physiotherapy. #9 anxiety/depression: Continue Zoloft, trazodone. #10 DVT prophylaxis: Subcu Lovenox. This note was generated with [employer] dictation software. It may contain incorrect words, spelling, and punctuation that were not noted in checking the note before signing. Code Visit Inpatient E&M: 71839 Subs Hosp L2
--- NOTE | 2018-07-08 09:31 | PCM.PROGNOTE ---
Subjective: Patient was seen this morning, has less pain to foot. She is resting comfortably in bed. Relates to several episodes of diarrhea, c diff is being checked, otherwise patient with no new complaints. No complaints of fever, chills, nausea or vomiting. Patient is afebrile. - Physical Exam General: Alert, Oriented x3, Cooperative, No apparent distress Extremities: - - Right foot: s/p TMA with skin edges coapted, no dehiscence, no fluctuance, no cellulitis, no streaking, no necrosis, no crepitus, no visible abscess; frank intact, tissues are healthy and viable, bleeding controlled, no evidence of ischemia present, normal temperature, there is some edema to the site c/w normal post op course, pain controlled at this time as well. Musculoskeletal: No Tenderness to Palpation of Joints or Extremities - right foot/ankle Psych/Mental Status: Normal Affect, Appropriate, Alert and oriented to time, place, person, mood and affect Vital Signs Temp Pulse Resp BP Pulse Ox 98.1 F 71 18 146/59 H 98 07/08/18 07:46 07/08/18 07:46 07/08/18 07:46 07/08/18 07:46 07/08/18 07:46 Oxygen Flow Rate (L/min) 2 Oxygen Delivery Method Nasal Cannula Weight: 112.12 kg Body Mass Index (BMI) 41.1 Finger Stick Blood Glucose 81 Intake and Output for Last 24 Hours 07/06/18 07/07/18 07/08/18 23:59 23:59 23:59 Intake Total 3396 / 3396 500 / 500 1635 / 1635 Output Total 300 / 300 Balance 3096 / 3096 500 / 500 1635 / 1635 Microbiology Past 72 Hours 07/06/18 Unknown Gram Stain - Final Biopsy - Bone Wound Culture - Preliminary No growth-Final to follow 07/06/18 Unknown Gram Stain - Final Biopsy - Bone Wound Culture - Preliminary No growth-Final to follow 07/06/18 Unknown Gram Stain - Final Biopsy - Bone Wound Culture - Preliminary Staphylococcus aureus 07/04/18 19:05 Gram Stain - Final Wound - Right Foot Wound Culture - Final Meth. resistant Staph. aureus Anaerobic Culture - Preliminary Checking for anaerobes, further studies to follow. 07/04/18 15:38 Blood Culture - Preliminary Blood Culture (Wb) - Anticubital Right No growth in 48 hours. 07/04/18 14:20 Blood Culture - Preliminary Blood Culture (Wb) - Anticubital Left No growth in 48 hours. Laboratory Tests Past 24 Hrs 07/08/18 07/08/18 05:30 05:30 Hgb 8.7 L Hct 27.2 L Sodium 143 Potassium 4.2 Chloride 112 H Carbon Dioxide 23.0 Anion Gap 8 BUN 22 H Creatinine 0.96 Estim Creat Clear Calc 103.41 Est GFR (MDRD) Af Amer 75 Est GFR (MDRD) Non-Af 62 BUN/Creatinine Ratio 23.0 H Glucose 118 H Calcium 7.4 L POC Glucose 07/08/18 07/07/18 07/07/18 07:32 21:03 16:42 POC Glucose 130 H 151 H 87 07/07/18 11:53 POC Glucose 121 H Medical Necessity - Tobacco Use Smoking Status: Former smoker Tobacco Use: Cigarettes Assessment/Plan Chronic ulceration sub 2nd metatarsal head right foot & significant foot deformity now s/p TMA on 07/06/18 Cellulitis right lower extremity - improving Diabetic Neuropathy Obesity Dressing changed today, site is healing well, painted incision line w/ betadine solution and applied overlying gauze, kerlix, abd pads and [place] dressing. H+H stable, bleeding controlled. Follow cultures, so far clearance fragments negative for growth, clinically bone at clearance margins appears heathy and viable. Infectious Disease service following and patient on antibiotic therapy. C. Diff is being checked. Strict nonweightbearing right foot (a knee walker has been prescribed, prescription placed in patient's chart on 07/07/18), and must keep the right foot elevated with pillows. Continue with pain management. Patient will need nursing facility placement for post op healing and care. Podiatry will continue to follow.
[2018-07-08] MEDS: Gabapentin 600 MG Tablet PO ×4 (10:55→21:13)
[2018-07-08] MEDS: Clopidogrel Bisulfate 75 MG Tablet PO (10:55)
[2018-07-08] MEDS: Sertraline 100 MG Tablet 200 MG PO (10:55)
[2018-07-08] MEDS: Lisinopril 5 MG Tablet PO (10:55)
[2018-07-08] MEDS: Enoxaparin 40 MG/0.4 ML Syringe SC (10:56)
[2018-07-08] MEDS: Ketorolac 30 MG/ML Syringe IV ×2 (10:56→17:51)
[2018-07-08] MEDS: Aspirin 81 MG TAB.CHEW PO (10:56)
[2018-07-08 11:10] LABS: Bedside Glucose 103 mg/dL (70-110)
[2018-07-08 16:41] LABS: Bedside Glucose 119 mg/dL (70-110)
[2018-07-08] MEDS: Ipratropium/Albuterol Sulfate 3 ML AMPUL.NEB INHALATION (19:14)
[2018-07-08] MEDS: Vancomycin IV 1,000 MG/200 ML BAG 200 MG IV (21:12)
[2018-07-08] MEDS: Pramipexole Di-HCl 0.25 MG Tablet PO (21:13)
[2018-07-08] MEDS: Atorvastatin Calcium 20 MG Tablet PO (21:13)
[2018-07-08] MEDS: traZODone 100 MG Tablet 200 MG PO (21:13)
[2018-07-08 21:45] LABS: Bedside Glucose 97 mg/dL (70-110)
[2018-07-09] VITALS (9 sets, daily range): BP systolic 128–154; BP diastolic 43–58; PULSE 70–90; RESP 14–20; TEMP 36.6–36.9; O2SAT 95–98
--- NOTE | 2018-07-09 | AMP_PTH ---
PATIENT: VERNON RUCKER LOC: MS3 U#:[id number] AGE/SX: 63/F ROOM: MS308 RE07/04/[address]: Dr. Max Vegas MD : 1955 BED: 1 DIS: 07/09/2018 SPEC #: [id number] RECD: 07/09/18 13:34 STATUS: DAVIDSON REQ #: [id number] ELISABET: 07/09/18 00:[address]: Armando Sutherland DEPT: SURGICAL PATHOLOGY RECD BY: Sekou Trejo ENTERED: 07/09/18 13:36 SP TYPE: Amputation OTHR DR: MD Dr. Leena Weller MD Dr. David Kittoe, MD Dr. Jeffrey Wunning, DPM Dr. Laurent Ga MD Tissues: A - Foot, NOS B - Bone of foot, NOS C - Bone of foot, NOS Procedures: Decalcification bone/plaque Surgery Specimen Level III Surgery Specimen Level IV Comments: @ Ordering doctor for DEC edited from to @ by IMELDA at 07/09/18 154 @ Ordering doctor for SUIII edited from to DR.JWUNNI Timmy SEGURA at 07/09/18 154 @ Ordering doctor for SUV edited from to @ nara SEGURA at 07/09/18 154 @ Submitting doctor edited from to DR.JWUNNI Timmy SEGURA at 07/09/18 1541 HEADER OPERATION: Debridement of all nonviable, infected, necrotic soft tissue PRE-OP DIAGNOSIS: Osteomyelitis, right foot TISSUE SUBMITTED: A - Amputated right forefoot, B - Second metatarsal clearance fragment, right foot, C - Third metatarsal clearance fragment, right foot MICROSCOPIC DIAGNOSIS A. Amputated right foot: Focal ulceration and associated acute inflammation. Extensive hyperkeratosis and pseudoepitheliomatous hyperplasia. Bone, negative for acute osteomyelitis. B. Right foot second metatarsal clearance fragment: A piece of bone, negative for acute osteomyelitis. C. Right foot third metatarsal clearance fragment: A piece of bone with attached soft tissue, negative for acute osteomyelitis. SJ:edelmira 07/13/18 MICROSCOPIC DESCRIPTION Slides are reviewed. GROSS DESCRIPTION A - Received in fixative is one container labeled with the patient's name and designated amputated right forefoot. The specimen consists of a portion of foot with only two toes present, little and adjacent fourth toe measuring 10 x 7 x 3.5 cm. The posterior cutaneous margin is 4 cm away from the anterior cutaneous margin and anterior cutaneous margin is 3 cm away from the resection margin of bone. The skin area shows thickening. The nails appear atrophic. No obvious ulceration is noted. Also present in the container is a detached piece of soft, indurated tissue measuring 2 x 1 x 1 cm. Side Stitching Machine Operator sections are submitted in four cassettes as follows: 1 & 2 - soft tissue, 3 & 4 - bone after decalcification. B - Received in fixative is one container labeled with the patient's name and designated right foot second metatarsal clearance fragment. The specimen consists of a piece of bone measuring 0.5 x 0.4 x 0.3 cm. The entire specimen is submitted in one cassette after decalcification. C - Received in fixative is one container labeled with the patient's name and designated right foot third metatarsal clearance fragment. The specimen consists of a piece of bone measuring 0.5 x 0.2 x 0.1 cm. The entire specimen is submitted in one cassette after decalcification. / SJ:rg 07/09/18 TC:2 CPT: 33725, 07573 x2, 89221 x3
[2018-07-09] MEDS: Ipratropium/Albuterol Sulfate 3 ML AMPUL.NEB INHALATION ×3 (00:44→13:09)
[2018-07-09] MEDS: Acetaminophen 500 MG Tablet 1000 MG PO ×2 (05:06→14:01)
[2018-07-09] MEDS: oxyCODONE 5 MG Tablet PO ×2 (05:06→14:00)
[2018-07-09] MEDS: metroNIDAZOLE 500 MG Tablet PO (05:06)
[2018-07-09] MEDS: 0.9% NaCl Peripheral Flush Adult/Peds IV ×2 (05:09→14:00)
[2018-07-09 07:30] LABS: Bedside Glucose 114 mg/dL (70-110)
--- NOTE | 2018-07-09 08:53 | PCM.PN.HOSP ---
Subjective: 63-year-old with multiple comorbidities including diabetes mellitus type 2 admitted with osteomyelitis involving the second and third metatarsal heads of the right foot. Patient underwent debridement of all nonviable, infected and necrotic tissue right foot. Transmetatarsal amputation right foot on 07/06/2018 by 07/09/2018: Patient seen complains of sore throat Objective: GENERAL: cooperative HEENT: Atraumatic; moist oral mucosa EYES; Anicteric, Normal Conjunctiva NECK; supple, normal thyroid, no distended JVD. RESPIRATORY: Diminished to auscultation bilaterally, CARDIOVASCULAR: Regular S1 S2, no audible murmurs GI: soft, non-tender, normoactive bowel sounds, : No Renal angle tenderness; EXTREMITIES: Right foot in surgical dressing MUSCULOSKELETAL: No Joint Tenderness; NEURO: Awake; no lateralizing signs. SKIN: No Rash PSYCH; Normal affect Vitals/I&O's: Vital Signs Temp Pulse Resp BP Pulse Ox 97.8 F 78 14 151/58 H 98 07/09/18 07:55 07/09/18 07:55 07/09/18 07:55 07/09/18 07:55 07/09/18 08:00 Oxygen Flow Rate (L/min) 2 Oxygen Delivery Method Nasal Cannula Weight: 112.12 kg Body Mass Index (BMI) 41.1 Finger Stick Blood Glucose 81 Intake and Output for Last 24 Hours 07/07/18 07/08/18 07/09/18 23:59 23:59 23:59 Intake Total 500 / 500 3895 / 3895 Balance 500 / 500 3895 / 3895 Microbiology Past 72 Hours 07/06/18 Unknown Biopsy - Bone Gram Stain - Final 07/06/18 Unknown Biopsy - Bone Wound Culture - Preliminary No growth-Final to follow 07/06/18 Unknown Biopsy - Bone Anaerobic Culture - Preliminary No growth in 48 hours. 07/06/18 Unknown Biopsy - Bone Gram Stain - Final 07/06/18 Unknown Biopsy - Bone Wound Culture - Preliminary No growth-Final to follow 07/06/18 Unknown Biopsy - Bone Anaerobic Culture - Preliminary No growth in 48 hours. 07/06/18 Unknown Biopsy - Bone Gram Stain - Final 07/06/18 Unknown Biopsy - Bone Wound Culture - Preliminary Staphylococcus aureus 07/06/18 Unknown Biopsy - Bone Anaerobic Culture - Preliminary No growth in 48 hours. 07/04/18 19:05 Wound - Right Foot Gram Stain - Final 07/04/18 19:05 Wound - Right Foot Wound Culture - Final Meth. resistant Staph. aureus 07/04/18 19:05 Wound - Right Foot Anaerobic Culture - Final No anaerobic bacteria isolated. 07/08/18 09:30 Stool C. difficile DNA Amplification - Final 07/04/18 15:38 Blood Culture (Wb) - Anticubital Right Blood Culture - Preliminary No growth in 48 hours. 07/04/18 14:20 Blood Culture (Wb) - Anticubital Left Blood Culture - Preliminary No growth in 48 hours. Laboratory Results 07/08/18 11:04: POC Glucose 103 07/08/18 16:37: POC Glucose 119 H 07/08/18 21:20: POC Glucose 97 07/09/18 07:28: POC Glucose 114 H Current Medications Acetaminophen (Tylenol) 1,000 mg PO Q8 [facility] Last Admin: 07/09/18 05:06 Dose: 1,000 mg Albuterol Sulfate (Ventolin Aerosols) 2.5 mg INHALATION Q4H PRN PRN PRN Reason: Shortness of breath, wheezing Albuterol/Ipratropium (Duoneb) 3 ml INHALATION Q6H.RT [facility] Last Admin: 07/09/18 07:15 Dose: 3 ml Aspirin (Aspirin, Baby) 81 mg PO DAILY [facility] Last Admin: 07/08/18 10:56 Dose: 81 mg Atorvastatin Calcium (Lipitor) 20 mg PO QHS [facility] Last Admin: 07/08/18 21:13 Dose: 20 mg Bisacodyl (Dulcolax) 5 mg PO DAILY PRN PRN PRN Reason: Constipation Clopidogrel Bisulfate (Plavix) 75 mg PO DAILY [facility] Last Admin: 07/08/18 10:55 Dose: 75 mg Cyclobenzaprine HCl (Flexeril) 10 mg PO TID PRN PRN PRN Reason: PAIN Last Admin: 07/08/18 07:43 Dose: 10 mg Dextrose (D50w Syringe) 0 gm IV X1 PRN; Protocol PRN Reason: Hypoglycemia Enoxaparin Sodium (Lovenox) 40 mg SC DAILY@1000 [facility] Last Admin: 07/08/18 10:56 Dose: 40 mg Gabapentin (Neurontin) 600 mg PO 4X/DAY [facility] Last Admin: 07/08/18 21:13 Dose: 600 mg Glucagon () 1 mg IM .X1 PRN PRN Reason: Hypoglycemia Vancomycin IV Pharmacy to Dose (1 ea/ Sodium Chloride) 500 mls @ 250 mls/hr IV X1 PRN; Protocol PRN Reason: Rx to Dose Ceftriaxone Sodium 2 gm/ (Sodium Chloride) 50 mls @ 100 mls/hr IV Q24 [facility] Last Admin: 07/08/18 10:56 Dose: 100 mls/hr Vancomycin HCl (Vancomycin) 1,000 mg in 200 mls @ 200 mls/hr IV Q24H [facility] Last Admin: 07/08/18 21:12 Dose: 200 mls/hr Insulin Glargine (Lantus (Bk)) 42 units SC QHS [facility] Last Admin: 07/08/18 21:31 Dose: 20 units Insulin Human Lispro (Humalog Kwikpen (Bkc)) 13 unit SC TIDCM [facility] Last Admin: 07/08/18 16:44 Dose: 13 units Insulin Human Lispro (Humalog Kwikpen (Bkc)) 0 unit SC ACHS [facility]; Protocol Last Admin: 07/09/18 07:45 Dose: Not Given Ketorolac Tromethamine (Toradol) 30 mg IV Q6H PRN PRN PRN Reason: PAIN Stop: 07/09/18 23:36 Last Admin: 07/08/18 17:51 Dose: 30 mg Labetalol HCl (Trandate) 10 mg IV Q6H PRN PRN PRN Reason: Systolic >160 Last Admin: 07/05/18 01:23 Dose: 10 mg Lisinopril (Zestril) 5 mg PO DAILY [facility] Last Admin: 07/08/18 10:55 Dose: 5 mg Magnesium Hydroxide (Milk Of Magnesia) 30 ml PO DAILY PRN PRN PRN Reason: Constipation Metronidazole (Flagyl) 500 mg PO TID [facility] Last Admin: 07/09/18 05:06 Dose: 500 mg Morphine Sulfate () 1 - 2 mg IV Q4H PRN PRN PRN Reason: SEVERE PAIN (6-10/10) Last Admin: 07/08/18 02:00 Dose: 2 mg Nicotine (Nicoderm Cq (Pbkc)) 21 mg TRANSDERM. DAILY [facility] Last Admin: 07/08/18 10:56 Dose: 21 mg Nicotine Polacrilex (Rugby Nicotine (Bkc)) 2 mg PO Q2H PRN PRN PRN Reason: Nicotine Craving Ondansetron HCl (Zofran) 4 mg IV Q8H PRN PRN PRN Reason: Nausea Ondansetron HCl (Zofran) 4 mg PO Q6H PRN PRN PRN Reason: NAUSEA Oxycodone HCl (Oxyir) 5 mg PO TID [facility] Last Admin: 07/09/18 05:06 Dose: 5 mg Pramipexole Dihydrochloride (Mirapex) 0.25 mg PO QHS [facility] Last Admin: 07/08/18 21:13 Dose: 0.25 mg Psyllium Hydrophilic Mucilloid (Metamucil) 1 packet PO DAILY PRN PRN PRN Reason: CONSTIPATION Sertraline HCl (Zoloft) 200 mg PO DAILY [facility] Last Admin: 07/08/18 10:55 Dose: 200 mg Sodium Chloride () 5 - 30 ml IV UD PRN PRN Reason: SALINE FLUSH Last Admin: 07/09/18 05:09 Dose: 10 ml Throat Lozenges (Cepacol Sore Throat Lozenge) 1 lozenge MUCOUS MEM Q2H PRN PRN PRN Reason: SORE THROAT Trazodone HCl (Desyrel) 200 mg PO QHS PRN PRN PRN Reason: SLEEP Last Admin: 07/08/18 21:13 Dose: 200 mg Medical Necessity - Tobacco Use Smoking Status: Former smoker Tobacco Use: Cigarettes Assessment/Plan 63-year-old with multiple comorbidities including diabetes mellitus type 2 admitted with osteomyelitis involving the second and third metatarsal heads of the right foot. Patient underwent debridement of all nonviable, infected and necrotic tissue right foot. Transmetatarsal amputation right foot on 07/06/2018 by 1. Acute right foot cellulitis and osteomyelitis involving the e second and third metatarsal heads of the right foot with MRSA and MSSA. Patient underwent debridement of all nonviable, infected and necrotic tissue right foot and Transmetatarsal amputation right foot on 07/06/2018 by patient remains on Rocephin and vancomycin. Discharge and duration of patient antibiotic therapy deferred to infectious disease. 2. CAD with previous stent placement patient currently on recommended medications including aspirin, Plavix as well as lisinopril 3. Diabetes mellitus type 2 with complications including diabetic foot ulcers. Patient is on long-acting insulin as well as scheduled short acting insulin. Patient in addition was placed on Accu-Cheks before meals and at bedtime with sliding scale coverage as well as 1800 ADA diet 4. Hypertension-blood pressure controlled, home medications continued with dose adjustment as needed 5. Secondary to anemia of chronic disorder monitoring H&H with plan to transfuse if patient becomes symptomatic or hemoglobin falls below 7 4. History of CVA with no residual effect 7. Depression with anxiety patient is on both Zoloft as well as trazodone 8. COPD currently not in exacerbation 1. Pharyngitis possibly viral in etiology plan to treat symptomatically 10. Dyslipidemia-patient is on statin therapy, continued at home dose 11. DVT prophylaxis on enoxaparin Active Medications Acetaminophen (Tylenol) 1,000 mg PO Q8 [facility] Last Admin: 07/09/18 05:06 Dose: 1,000 mg Albuterol Sulfate (Ventolin Aerosols) 2.5 mg INHALATION Q4H PRN PRN PRN Reason: Shortness of breath, wheezing Albuterol/Ipratropium (Duoneb) 3 ml INHALATION Q6H.RT [facility] Last Admin: 07/09/18 07:15 Dose: 3 ml Aspirin (Aspirin, Baby) 81 mg PO DAILY [facility] Last Admin: 07/08/18 10:56 Dose: 81 mg Atorvastatin Calcium (Lipitor) 20 mg PO QHS [facility] Last Admin: 07/08/18 21:13 Dose: 20 mg Bisacodyl (Dulcolax) 5 mg PO DAILY PRN PRN PRN Reason: Constipation Clopidogrel Bisulfate (Plavix) 75 mg PO DAILY [facility] Last Admin: 07/08/18 10:55 Dose: 75 mg Cyclobenzaprine HCl (Flexeril) 10 mg PO TID PRN PRN PRN Reason: PAIN Last Admin: 07/08/18 07:43 Dose: 10 mg Dextrose (D50w Syringe) 0 gm IV X1 PRN; Protocol PRN Reason: Hypoglycemia Enoxaparin Sodium (Lovenox) 40 mg SC DAILY@1000 [facility] Last Admin: 07/08/18 10:56 Dose: 40 mg Gabapentin (Neurontin) 600 mg PO 4X/DAY [facility] Last Admin: 07/08/18 21:13 Dose: 600 mg Glucagon () 1 mg IM .X1 PRN PRN Reason: Hypoglycemia Vancomycin IV Pharmacy to Dose (1 ea/ Sodium Chloride) 500 mls @ 250 mls/hr IV X1 PRN; Protocol PRN Reason: Rx to Dose Ceftriaxone Sodium 2 gm/ (Sodium Chloride) 50 mls @ 100 mls/hr IV Q24 [facility] Last Admin: 07/08/18 10:56 Dose: 100 mls/hr Vancomycin HCl (Vancomycin) 1,000 mg in 200 mls @ 200 mls/hr IV Q24H [facility] Last Admin: 07/08/18 21:12 Dose: 200 mls/hr Insulin Glargine (Lantus (Bkc)) 42 units SC QHS [facility] Last Admin: 07/08/18 21:31 Dose: 20 units Insulin Human Lispro (Humalog Kwikpen (Bkc)) 13 unit SC TIDCM [facility] Last Admin: 07/08/18 16:44 Dose: 13 units Insulin Human Lispro (Humalog Kwikpen (Bkc)) 0 unit SC ACHS [facility]; Protocol Last Admin: 07/09/18 07:45 Dose: Not Given Ketorolac Tromethamine (Toradol) 30 mg IV Q6H PRN PRN PRN Reason: PAIN Stop: 07/09/18 23:36 Last Admin: 07/08/18 17:51 Dose: 30 mg Labetalol HCl (Trandate) 10 mg IV Q6H PRN PRN PRN Reason: Systolic >160 Last Admin: 07/05/18 01:23 Dose: 10 mg Lisinopril (Zestril) 5 mg PO DAILY [facility] Last Admin: 07/08/18 10:55 Dose: 5 mg Magnesium Hydroxide (Milk Of Magnesia) 30 ml PO DAILY PRN PRN PRN Reason: Constipation Metronidazole (Flagyl) 500 mg PO TID [facility] Last Admin: 07/09/18 05:06 Dose: 500 mg Morphine Sulfate () 1 - 2 mg IV Q4H PRN PRN PRN Reason: SEVERE PAIN (6-10/10) Last Admin: 07/08/18 02:00 Dose: 2 mg Nicotine (Nicoderm Cq (Pbkc)) 21 mg TRANSDERM. DAILY [facility] Last Admin: 07/08/18 10:56 Dose: 21 mg Nicotine Polacrilex (Rugby Nicotine (Bkc)) 2 mg PO Q2H PRN PRN PRN Reason: Nicotine Craving Ondansetron HCl (Zofran) 4 mg IV Q8H PRN PRN PRN Reason: Nausea Ondansetron HCl (Zofran) 4 mg PO Q6H PRN PRN PRN Reason: NAUSEA Oxycodone HCl (Oxyir) 5 mg PO TID [facility] Last Admin: 07/09/18 05:06 Dose: 5 mg Pramipexole Dihydrochloride (Mirapex) 0.25 mg PO QHS [facility] Last Admin: 07/08/18 21:13 Dose: 0.25 mg Psyllium Hydrophilic Mucilloid (Metamucil) 1 packet PO DAILY PRN PRN PRN Reason: CONSTIPATION Sertraline HCl (Zoloft) 200 mg PO DAILY [facility] Last Admin: 07/08/18 10:55 Dose: 200 mg Sodium Chloride () 5 - 30 ml IV UD PRN PRN Reason: SALINE FLUSH Last Admin: 07/09/18 05:09 Dose: 10 ml Throat Lozenges (Cepacol Sore Throat Lozenge) 1 lozenge MUCOUS MEM Q2H PRN PRN PRN Reason: SORE THROAT Trazodone HCl (Desyrel) 200 mg PO QHS PRN PRN PRN Reason: SLEEP Last Admin: 07/08/18 21:13 Dose: 200 mg Code Visit Inpatient E&M: [id number] [facility] Hosp L2
[2018-07-09] MEDS: Enoxaparin 40 MG/0.4 ML Syringe SC (09:48)
[2018-07-09] MEDS: Aspirin 81 MG TAB.CHEW PO (09:48)
[2018-07-09] MEDS: Gabapentin 600 MG Tablet PO ×2 (09:49→14:00)
[2018-07-09] MEDS: Clopidogrel Bisulfate 75 MG Tablet PO (09:49)
[2018-07-09] MEDS: Lisinopril 5 MG Tablet PO (09:50)
[2018-07-09] MEDS: Ketorolac 30 MG/ML Syringe IV (09:51)
[2018-07-09] MEDS: Sertraline 100 MG Tablet 200 MG PO (09:53)
[2018-07-09] MEDS: BENZOCAINE/MENTHOL 1 LOZENGE MUCOUS MEM (09:55)
--- NOTE | 2018-07-09 11:19 | PCM.PROGNOTE ---
Subjective: Patient was seen resting bedside today following right TMA by Dr. Sutherland. She says she has minor tenderness to foot, but that this continues to improve slightly each day. She is resting comfortably in bed. Patient complains of slight sore throat today, but otherwise, has no new complaints. Patient denies any feelings of fever, chills, nausea or vomiting. Patient remains afebrile. - Physical Exam General: Alert, Oriented x3, Cooperative Extremities: - - Right foot: s/p TMA with skin edges coapted, no dehiscence, no fluctuance, no cellulitis, no streaking, no necrosis, no crepitus, no visible abscess; frank remain intact, tissues are healthy and viable, bleeding controlled, no evidence of ischemia present, normal temperature, there is some edema to the site c/w normal post op course. Some slight dried blood noted to incision site. Musculoskeletal: No Tenderness to Palpation of Joints or Extremities Neurological: - - epicritic sensation grossly absent to lower extremities Psych/Mental Status: Normal Affect, Appropriate Vital Signs Temp Pulse Resp BP Pulse Ox 97.8 F 90 14 151/58 H 98 07/09/18 07:55 07/09/18 10:42 07/09/18 07:55 07/09/18 07:55 07/09/18 08:00 Oxygen Flow Rate (L/min) 3 Oxygen Delivery Method Nasal Cannula Weight: 112.12 kg Body Mass Index (BMI) 41.1 Finger Stick Blood Glucose 81 Intake and Output for Last 24 Hours 07/07/18 07/08/18 07/09/18 23:59 23:59 23:59 Intake Total 500 / 500 3895 / 3895 Balance 500 / 500 3895 / 3895 Microbiology Past 72 Hours 07/06/18 Unknown Gram Stain - Final Biopsy - Bone Wound Culture - Preliminary No growth-Final to follow Anaerobic Culture - Preliminary No growth in 48 hours. 07/06/18 Unknown Gram Stain - Final Biopsy - Bone Wound Culture - Preliminary No growth-Final to follow Anaerobic Culture - Preliminary No growth in 48 hours. 07/06/18 Unknown Gram Stain - Final Biopsy - Bone Wound Culture - Preliminary Staphylococcus aureus Anaerobic Culture - Preliminary No growth in 48 hours. 07/04/18 19:05 Gram Stain - Final Wound - Right Foot Wound Culture - Final Meth. resistant Staph. aureus Anaerobic Culture - Final No anaerobic bacteria isolated. 07/08/18 09:30 C. difficile DNA Amplification - Final Stool 07/04/18 15:38 Blood Culture - Preliminary Blood Culture (Wb) - Anticubital Right No growth in 48 hours. 07/04/18 14:20 Blood Culture - Preliminary Blood Culture (Wb) - Anticubital Left No growth in 48 hours. POC Glucose 07/09/18 07/08/18 07/08/18 07:28 21:20 16:37 POC Glucose 114 H 97 119 H Medical Necessity - Tobacco Use Smoking Status: Former smoker Tobacco Use: Cigarettes Assessment/Plan Chronic ulceration sub 2nd metatarsal head right foot & significant foot deformity now s/p TMA on 07/06/18 Cellulitis right lower extremity - improving Diabetic Neuropathy Obesity Patient was examined and evaluated bedside again today. Vital signs currently stable. Dressing was changed today. Surgical site continues to heal well. Surgical site was then painted w/ betadine solution and applied overlying gauze, kerlix, abd pads and america dressing. Clearance fragments still negative for growth at this time. Infectious Disease service following and patient on antibiotic therapy. C. Diff test negative. Patient is to be strict nonweightbearing right foot (a knee walker has been prescribed, prescription placed in patient's chart on 07/07/18), and must keep the right foot elevated with pillows. Continue with pain management. Patient will need nursing facility placement for post op healing and care. She says she prefers [facility]. Patient will also follow up in clinic with Dr. Sutherland at [facility] within one week of discharge from the hospital. Continued medical management per primary team is appreciated. Podiatry will continue to follow this patient while in house.
--- NOTE | 2018-07-09 11:20 | CASEMGMT ---
Social Work Note SW met with pt to confirm discharge plans. Pt agreeable to referral being sent to [facility]. SW placed a call to [facility] quality management to send referral to [facility]. Plan: [facility] pending acceptance Nasrin Patricio MSW, MECHANICAL COMMISSIONING ENGINEER
--- NOTE | 2018-07-09 11:32 | CASEMGMT ---
Per AMA Vargas, referral needs sent to [facility]. Called and spoke with Mirta, there is female bed availability. Mirta asks that referral be faxed to [phone], same done. Fax confirmation rec'd. Sherri Fisher LPN Clinical Support
[2018-07-09 12:01] LABS: Bedside Glucose 141 mg/dL (70-110)
--- NOTE | 2018-07-09 13:41 | PN.ID_ITS ---
Subjective: Not feeling well. C/o n/v/d and abd pain. Not able to eat much. No fever. - Physical Exam General: Alert, - - uncomfortable Lungs: Clear to auscultation, Normal air movement Cardiovascular: Regular rate, Regular Rhythm Abdomen: Soft, Non Tender, Non-Distended Skin: Ulcer/ Wound - R foot wrapped Vital Signs Temp Pulse Resp BP Pulse Ox 98.5 F 70 20 H 154/57 H 96 07/09/18 12:27 07/09/18 13:36 07/09/18 13:36 07/09/18 12:27 07/09/18 12:27 Oxygen Flow Rate (L/min) 2 Oxygen Delivery Method Nasal Cannula Weight: 112.12 kg Body Mass Index (BMI) 41.1 Finger Stick Blood Glucose 81 Intake and Output for Last 24 Hours 07/07/18 07/08/18 07/09/18 23:59 23:59 23:59 Intake Total 500 / 500 3895 / 3895 Balance 500 / 500 3895 / 3895 Microbiology Past 72 Hours 07/06/18 Unknown Gram Stain - Final Biopsy - Bone Wound Culture - Preliminary No growth-Final to follow Anaerobic Culture - Preliminary No growth in 48 hours. 07/06/18 Unknown Gram Stain - Final Biopsy - Bone Wound Culture - Preliminary No growth-Final to follow Anaerobic Culture - Preliminary No growth in 48 hours. 07/06/18 Unknown Gram Stain - Final Biopsy - Bone Wound Culture - Preliminary Staphylococcus aureus Anaerobic Culture - Preliminary No growth in 48 hours. 07/04/18 19:05 Gram Stain - Final Wound - Right Foot Wound Culture - Final Meth. resistant Staph. aureus Anaerobic Culture - Final No anaerobic bacteria isolated. 07/08/18 09:30 C. difficile DNA Amplification - Final Stool 07/04/18 15:38 Blood Culture - Preliminary Blood Culture (Wb) - Anticubital Right No growth in 48 hours. 07/04/18 14:20 Blood Culture - Preliminary Blood Culture (Wb) - Anticubital Left No growth in 48 hours. POC Glucose 07/09/18 07/09/18 07/08/18 11:52 07:28 21:20 POC Glucose 141 H 114 H 97 07/08/18 16:37 POC Glucose 119 H Medical Necessity - Tobacco Use Smoking Status: Former smoker Tobacco Use: Cigarettes Route of nutrition/ use of supplements: [] Nutritional Intake: [] IV Site: [] Zuñiga Catheter: [] - Assessment/Plan Antibiotics: [] Assessment/Plan: [] 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 Pt went to OR for TMA with Dr. Sutherland 07/06 Has been on vanc/ceftriaxone/flagyl. Ok to stop abx today. Will check cdiff due to n/v/d and abd pain. Will follow, d/w director of casework services
--- NOTE | 2018-07-09 14:35 | PCM.TXEXTCAR ---
- Diet 07/06/18 18:49 Diabetic [Diet: Calorie Controlled] Is pt able to select menu?: Yes How many daily calories?: 2000 calorie - Wound(s) LEG Wound Type: REDNESS TO RT LEG R anterior calf Wound Type: Abrasion right plantar foot Wound Type: Surgical Incision Dressing Change: Dry Sterile Dressing Rt foot Wound Type: Surgical Incision Dressing Change: Dry Sterile Dressing right posterior calf Wound Type: scattered scabs - Therapies Weight Bearing: Non weight bearing Physical Therapy: Eval and Treat Occupational Therapy: Eval and Treat - Allergies/Procedures Done in Hospital Allergies/Adverse Reactions: Allergies clindamycin Allergy (Verified 07/04/18 13:19) Unknown Penicillins Allergy (Verified 07/04/18 13:19) Rash pentazocine [From Talwin] Allergy (Verified 07/04/18 13:19) Unknown tramadol [From Ultram] Allergy (Verified 07/04/18 13:19) Unknown morphine [From MS Contin] Adverse Reaction (Verified 07/04/18 13:19) Unknown varenicline [From Chantix] Adverse Reaction (Verified 07/04/18 13:19) Unknown - Type of Care/Length of Stay Estimated LOS: Convalescent Care Less Than 30 days Type of Care Needed: Skilled Rehab Potential: Good Prognosis: Good - Additional Orders/Day of Discharge Day of Discharge: 07/09/18 - Dietary and Speech Recommendations Dietitian Recommendations/Changes: Recommend diet change to 1800-calorie diet. Suggest Wilbert 1 packet BID to support wound healing--ordered through pharmacy. - Follow Up Care Primary Care Physician: Justino Yost MD [Primary Care Provider] -
--- NOTE | 2018-07-09 14:50 | PCM.DC.SUM ---
Discharge Date and Diagnosis Date of Admission: 07/04/18 Date of Discharge: 07/09/18 - Primary Discharge Diagnosis Right foot cellulitis/osteomyelitis - Secondary Discharge Diagnosis Chronic Problems COPD (chronic obstructive pulmonary disease) (Chronic) Coronary artery disease (Chronic) Status post stents back in 2002 Type 2 diabetes mellitus with diabetic polyneuropathy (Chronic) Non-pressure chronic ulcer of other part of right foot with fat layer exposed (Chronic) Delayed wound healing (Chronic) Edema leg (Chronic) Morbid obesity (Chronic) Wound infection (Chronic) Rt tow Peripheral neuropathy (Chronic) PVD (peripheral vascular disease) (Chronic) HLD (hyperlipidemia) (Chronic) DM2 (diabetes mellitus, type 2) (Chronic) Agitated depression (Chronic) Hospital Course and Treatment Consultations 07/04/18 19:20 Consult: Onc/Wound/electrical design engineer Routine Comment: Reason for Consult:: right foot ulcer Summary of Care Provided: 63-year-old with multiple comorbidities including diabetes mellitus type 2 admitted with osteomyelitis involving the second and third metatarsal heads of the right foot. Patient underwent debridement of all nonviable, infected and necrotic tissue right foot. Transmetatarsal amputation right foot on 07/06/2018 by 1. Acute right foot cellulitis and osteomyelitis involving the e second and third metatarsal heads of the right foot with MRSA and MSSA. Patient underwent debridement of all nonviable, infected and necrotic tissue right foot and Transmetatarsal amputation right foot on 07/06/2018 by patient remains on Rocephin and vancomycin. Duration of antibiotic therapy was determined by Dr. Ga with infectious disease who recommended discontinuation of antibiotic therapy on 07/09/2018. 2. CAD with previous stent placement patient currently on recommended medications including aspirin, Plavix as well as lisinopril 3. Diabetes mellitus type 2 with complications including diabetic foot ulcers. Patient is on long-acting insulin as well as scheduled short acting insulin. Patient in addition was placed on Accu-Cheks before meals and at bedtime with sliding scale coverage as well as 1800 ADA diet 4. Hypertension-blood pressure controlled, home medications continued with dose adjustment as needed 5. Secondary to anemia of chronic disorder monitoring H&H with plan to transfuse if patient becomes symptomatic or hemoglobin falls below 7 4. History of CVA with no residual effect 7. Depression with anxiety patient is on both Zoloft as well as trazodone 8. COPD currently not in exacerbation 1. Pharyngitis possibly viral in etiology plan to treat symptomatically 10. Dyslipidemia-patient is on statin therapy, continued at home dose 11. DVT prophylaxis on enoxaparin - Physical Exam General: Alert HEENT: Atraumatic Lungs: Diminished Cardiovascular: Regular rate Neurological: Neuro grossly intact Vital Signs Temp Pulse Resp BP Pulse Ox 97.9 F 83 20 H 150/53 H 95 07/09/18 14:35 07/09/18 14:35 07/09/18 14:35 07/09/18 14:35 07/09/18 14:35 Oxygen Flow Rate (L/min) 2 Oxygen Delivery Method Nasal Cannula Weight: 112.12 kg Body Mass Index (BMI) 41.1 Finger Stick Blood Glucose 81 Intake and Output for Last 24 Hours 07/07/18 07/08/18 07/09/18 23:59 23:59 23:59 Intake Total 500 / 500 3895 / 3895 300 / 300 Balance 500 / 500 3895 / 3895 300 / 300 Microbiology Past 72 Hours 07/06/18 Unknown Gram Stain - Final Biopsy - Bone Wound Culture - Preliminary No growth-Final to follow Anaerobic Culture - Preliminary No growth in 48 hours. 07/06/18 Unknown Gram Stain - Final Biopsy - Bone Wound Culture - Preliminary No growth-Final to follow Anaerobic Culture - Preliminary No growth in 48 hours. 07/06/18 Unknown Gram Stain - Final Biopsy - Bone Wound Culture - Preliminary Staphylococcus aureus Anaerobic Culture - Preliminary No growth in 48 hours. 07/04/18 19:05 Gram Stain - Final Wound - Right Foot Wound Culture - Final Meth. resistant Staph. aureus Anaerobic Culture - Final No anaerobic bacteria isolated. 07/08/18 09:30 C. difficile DNA Amplification - Final Stool 07/04/18 15:38 Blood Culture - Preliminary Blood Culture (Wb) - Anticubital Right No growth in 48 hours. 07/04/18 14:20 Blood Culture - Preliminary Blood Culture (Wb) - Anticubital Left No growth in 48 hours. POC Glucose 07/09/18 07/09/18 07/08/18 11:52 07:28 21:20 POC Glucose 141 H 114 H 97 07/08/18 16:37 POC Glucose 119 H Discharge Diet: 1800 Calorie Control Diet Home Medications: Medications to take at Discharge Clopidogrel Bisulfate [Plavix] 75 mg PO DAILY 10/20/16 Gabapentin [Neurontin] 600 mg PO 4X/DAY 10/20/16 Insulin Aspart [Novolog Vial] 13 units SQ TIDCM 10/20/16 Lisinopril [Zestril] 5 mg PO DAILY 10/20/16 Naproxen 375 mg PO BID PRN PRN 10/20/16 Ropinirole HCl [Requip] 0.5 mg PO QHS 10/20/16 Rosuvastatin Calcium 10 mg PO QHS 10/20/16 Sertraline HCl [Zoloft] 200 mg PO DAILY 10/20/16 Aspirin 81 mg PO DAILY 05/22/18 Cyclobenzaprine HCl 10 mg PO TID PRN PRN 05/22/18 Insulin Glargine,Hum.rec.anlog [Basaglar Kwikpen U-100] 42 unit SQ QHS 05/22/18 Lactulose 10 - 20 gm PO DAILY PRN PRN 05/22/18 Nystatin Powder [Mycostatin Powder] 1 applic TOPICAL BID 05/22/18 Ondansetron HCl [Zofran] 4 mg PO Q6H PRN PRN 05/22/18 traZODone [Desyrel] 200 mg PO QHS PRN PRN 07/04/18 Acetaminophen [Tylenol] 1,000 mg PO Q8 tablet 07/09/18 Albuterol Aerosols [Ventolin Aerosols] 2.5 mg INHALATION Q4H PRN PRN vial.neb. 07/09/18 Bisacodyl [Dulcolax] 5 mg PO DAILY PRN PRN tablet 07/09/18 Glucagon 1 mg IM .X1 PRN syringe 07/09/18 Insulin Lispro [Humalog KwikPen] See Protocol SC ACHS insuln.pen 07/09/18 Ipratropium/Albuterol Sulfate [Duoneb] 3 ml INHALATION Q6H.RT ampul.neb 07/09/18 Ketorolac [Toradol] 30 mg IV Q6H PRN PRN syringe 07/09/18 Magnesium Hydroxide [Milk Of Magnesia] 30 ml PO DAILY PRN PRN udc 07/09/18 Nicotine Polacrilex [Nicotine Gum] 2 mg PO Q2H PRN PRN gum 07/09/18 Nicotine [Nicoderm Cq] 21 mg TRANSDERM. DAILY patch 07/09/18 Oxycodone [Oxyir] 5 mg PO TID PRN 5 Days #14 tab 07/09/18 Psyllium [Metamucil] 1 packet PO DAILY PRN PRN packet 07/09/18 Following Prescrptions Were Given to Patient: Oxycodone [Oxyir] 5 mg PO TID PRN 5 Days #14 tab PRN Reason: Pain Primary Care Physician: Justino Yost MD [Primary Care Provider] - Disposition: Residential facility Minutes spent on discharge:: 38 Patient Condition:: Stable Medical Necessity - Tobacco Use Smoking Status: Former smoker Tobacco Use: Cigarettes Meaningful Use Info Meaningful Use Diagnoses (Choose all that apply): None applicable Code Visit Inpatient E&M: 71380 Disch Hosp
--- NOTE | 2018-07-09 15:47 | CASEMGMT ---
Social Work Note AMA placed a call to [facility] and spoke with Della. Per Della she is able to accept pt today. AMA updated physician. AMA faxed completed discharge paperwork to [facility] including transfer to extended care facility, signed medication list and any scripts. Originals in SNF folder and copy on pt's chart. AMA completed [facility] in [facility]. Original in SNF folder and copy on pt's chart. AMA set up transportation through [facility] via cot for 5:00pm. Transportation form on SNF folder and copy on pt's chart. AMA updated RN Kannan and placed a call to Della at [facility] and updated her on transportation time. SW updated pt on transportation time. Pt states that she informed her of transportation time and he will update her children. Plan: Pt to discharge to [facility] today skilled at 5:00pm via cot. Nasrin Patricio INVESTIGATION SPECIALIST, VP [employer]
--- NOTE | 2018-07-09 16:47 | NURSING ---
Report called to [facility] the nurse.
[2018-07-10 02:21] LABS: Bedside Glucose 141 mg/dL (70-110)
== END 2018-07-09 17:01 | disposition skilled nursing facility (03) | DRG 617 ==
LOC: ED 15:41 → MS3 16:19
PROVIDERS: Anesthesiology; Hospitalist; Podiatrist; Admitting Provider Internal Medicine; Emergency Provider Emergency Medicine; Family Provider Family Medicine; PCP Family Medicine; Visit Provider Internal Medicine
PROC: 0Y6M0Z9 Detachment at Right Foot, Partial 1st Ray, Open Approach (ICD-10-PCS; CPT 28805; principal; 2018-07-06 07:15)
DX: E11.621 Type 2 diabetes mellitus with foot ulcer (principal); L03.115 Cellulitis of right lower limb; Z68.41 Body mass index [BMI] 40.0-44.9, adult; M86.8X7 Other osteomyelitis, ankle and foot; E11.69 Type 2 diabetes mellitus with other specified complication; E11.42 Type 2 diabetes mellitus with diabetic polyneuropathy; E66.01 Morbid (severe) obesity due to excess calories; I25.10 Atherosclerotic heart disease of native coronary artery without angina pectoris; E78.5 Hyperlipidemia, unspecified; B95.62 Methicillin resistant Staphylococcus aureus infection as the cause of diseases classified elsewhere; F41.8 Other specified anxiety disorders; L97.512 Non-pressure chronic ulcer of other part of right foot with fat layer exposed; J44.9 Chronic obstructive pulmonary disease, unspecified; J02.9 Acute pharyngitis, unspecified; I10 Essential (primary) hypertension; D63.8 Anemia in other chronic diseases classified elsewhere; F17.210 Nicotine dependence, cigarettes, uncomplicated; Z79.899 Other long term (current) drug therapy; Z79.82 Long term (current) use of aspirin; Z79.4 Long term (current) use of insulin; Z79.02 Long term (current) use of antithrombotics/antiplatelets; Z86.73 Personal history of transient ischemic attack (TIA), and cerebral infarction without residual deficits; Z89.421 Acquired absence of other right toe(s); Z89.411 Acquired absence of right great toe; Z95.5 Presence of coronary angioplasty implant and graft; E11.51 Type 2 diabetes mellitus with diabetic peripheral angiopathy without gangrene
CPT/HCPCS: 36415; 71045; 73630; 73718; 80048; 80053; 80202; 82728; 82962; 83540; 83550; 83605; 85014; 85018; 85025; 85045; 85652; 86140; 86850; 86900; 87040; 87070; 87075; 87077; 87186; 87205; 87493; 87640; 88304; 88305; 88307; 88311; 93005; 93923; 93971; 94640; 94667; 94668; 97110; 97162; 97165; 97530; 97535; 97802; 99283; 99406; J7030; J7040; A4216; J0696; J2405

== ENCOUNTER 2018-10-28 10:49 | Outpatient (REF) | payer SELFPAY ==
[2018-07-04 16:49] VITALS: BMI 41.1
== END 2018-10-28 15:00 | disposition home or self-care (01) ==
LOC: EDREF 10:49
DX: Z04.41 Encounter for examination and observation following alleged adult rape (principal)

== ENCOUNTER 2018-10-28 11:42 | Emergency (ER) | payer MEDICARE, SELFPAY ==
[2018-10-28 11:43] VITALS: BP 156/60; PULSE 67; RESP 19; TEMP 36.8; O2SAT 100; BMI 34.9
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
[2018-10-28 12:38] LABS: Absolute Lymphocyte Count 2.05 X10^3/ul (0.83-4.51); Absolute Neutrophil Count 2.7 X10^3/uL (2.0-7.7); Basophil# 0.02 X10^3/uL; Basophil% 0.4 % (0-1); Eosinophils% 1.9 % (0-5); Hematocrit 36.6 % (37-47); Hemoglobin 12.6 g/dl (12.0-15.0); Lymphocyte # 2.05 X10^3/ul (4.0); Lymphocyte % 38.6 % (19-41); Mean Corp Hgb Conc 34.4 g/gl (32-36); Mean Corpuscular Hgb 27.8 pg (27.0-32.0); Mean Corpuscular Volume 80.6 fL (81-99); Mean Platelet Vol. 8.8 fl (6.2-12.0); Monocyte% 7.5 % (0-10); Neutrophil # 2.74 X10^3/uL (2.7-7.7); Neutrophil % 51.6 % (47-70); POSITIVE COUNT NO; POSITIVE DIFFERENTIAL NO; POSITIVE MORPHOLOGY NO; Platelet Count 149 K/mm3 (150-450); RBC Distribution Width CV 15.6 % (11.6-14.6); RBC Distribution Width SD 45.4 fl (35.1-43.9); Red Blood Count 4.54 M/mm3 (4.2-5.4); White Blood Count 5.3 K/mm3 (4.4-11.0)
[2018-10-28 12:41] LABS: International Normalized Ratio 1.1; Prothrombin Time (Protime)PT. 14.1 SECONDS (11.7-14.9)
[2018-10-28 12:42] LABS: Partial Thromboplast Time 28.1 Seconds (24.1-36.2)
[2018-10-28] MEDS: Ondansetron 4 MG/2 ML Vial IV (12:43)
[2018-10-28] MEDS: fentaNYL 100 MCG/2 ML Ampul 25 MCG IV (12:43)
[2018-10-28] MEDS: 0.9% Normal Saline 1,000 ML 999 ML IV (12:43)
[2018-10-28 12:49] LABS: AST(SGOT) 25 U/L (15-37); Alanine Aminotransfer ALT/SGPT 21 U/L (13-56); Albumin, Serum 3.2 g/dL (3.2-5.0); Alkaline Phosphatase 86 U/L (45-117); Anion Gap 8 (5-15); BUN 20 mg/dL (7-18); BUN/Creat Ratio 18.9 RATIO (10-20); Bilirubin, Direct 0.26 mg/dL (0.00-0.30); Calcium,Total 8.5 mg/dL (8.5-10.1); Chloride 106 mmol/L (98-107); Creatinine, Serum 1.06 mg/dL (0.55-1.02); EST Glomerular Filtration Rate 55 mL/min (>60); Est Glom Filt Rate - Afr Amer 67 mL/min (>60); Estimated Creatinine Clearance 47.61 ml/min; Globulin 3.9 g/dL (2.2-4.2); Glucose 220 mg/dL (74-106); Potassium 3.6 mmol/L (3.5-5.1); Protein, Total 7.1 g/dL (6.4-8.2); Sodium Level 142 mmol/L (136-145)
--- NOTE | 2018-10-28 13:00 | EKG12_ITS ---
Test Reason : Blood Pressure : / mmHG Vent. Rate : 065 BPM Atrial Rate : 065 BPM P-R Int : 146 ms QRS Dur : 096 ms QT Int : 428 ms P-R-T Axes : 053 015 -68 degrees QTc Int : 445 ms Normal sinus rhythm Abnormal ECG Confirmed by NAVID BROWN MD ([id number]), graphic editor LOTTIE MONDRAGON ([id number]) on 11/01/2018 11:17:02 AM Referred By: SALVADOR Confirmed By:NAVID BROWN MD
[2018-10-28 13:26] VITALS: BP 187/58; O2SAT 100
[2018-10-28] MEDS: Ketorolac 15 MG/ML Vial IV (14:42)
[2018-10-28 16:24] VITALS: BP 188/90; RESP 16; O2SAT 97
[2018-10-28 16:37] VITALS: BP 178/51
== END 2018-10-28 16:38 | disposition home or self-care (01) ==
PROVIDERS: Emergency Provider Emergency Medicine; Family Provider Family Medicine; PCP Family Medicine
DX: S31.41XA Laceration without foreign body of vagina and vulva, initial encounter (principal); S36.63XA Laceration of rectum, initial encounter; S30.0XXA Contusion of lower back and pelvis, initial encounter; S30.1XXA Contusion of abdominal wall, initial encounter; S20.02XA Contusion of left breast, initial encounter; S50.12XA Contusion of left forearm, initial encounter; S50.11XA Contusion of right forearm, initial encounter; S80.12XA Contusion of left lower leg, initial encounter; S80.11XA Contusion of right lower leg, initial encounter; S50.02XA Contusion of left elbow, initial encounter; Y93.9 Activity, unspecified; T74.21XA Adult sexual abuse, confirmed, initial encounter; Y04.2XXA Assault by strike against or bumped into by another person, initial encounter; Y92.9 Unspecified place or not applicable; Y99.9 Unspecified external cause status; E11.9 Type 2 diabetes mellitus without complications; R11.2 Nausea with vomiting, unspecified; Z72.0 Tobacco use; Z79.02 Long term (current) use of antithrombotics/antiplatelets; Z79.899 Other long term (current) drug therapy; Z86.73 Personal history of transient ischemic attack (TIA), and cerebral infarction without residual deficits; Z89.431 Acquired absence of right foot
CPT/HCPCS: 70450; 71045; 72125; 74177; 80048; 80076; 85025; 85610; 85730; 93005; 96361; 96374; 96375; 99282; J7030; Q9967; A4216; J2405

== ENCOUNTER 2022-05-30 05:35 | Inpatient (IN) | payer MEDICARE, MEDICAID, SELFPAY ==
[2022-05-30] VITALS (24 sets, daily range): BP systolic 97–165; BP diastolic 29–64; PULSE 35–91; RESP 8–79; TEMP 36.3–37.8; O2SAT 94–100; BMI 34.0
--- NOTE | 2022-05-30 05:35 | EKG12_ITS ---
Test Reason : Blood Pressure : / mmHG Vent. Rate : 049 BPM Atrial Rate : 049 BPM P-R Int : 170 ms QRS Dur : 122 ms QT Int : 496 ms P-R-T Axes : 056 011 227 degrees QTc Int : 448 ms Sinus bradycardia Non-specific intra-ventricular conduction delay ST & T wave abnormality, consider inferior ischemia ST & T wave abnormality, consider anterolateral ischemia Abnormal ECG Confirmed by STEPHANIE MANRIQUEZ, NAVID ([id number]), managing editor LOTTIE MONDRAGON ([id number]) on 05/31/2022 1:51:03 PM Referred By: Goldyp Confirmed By:NAVID BROWN MD
--- NOTE | 2022-05-30 05:43 | PCM.HP.STD ---
HPI - General General Date of Admission: 05/30/22 Date of Service: 05/30/22 Chief Complaint: chest pain HPI Narrative VERNON RUCKER is a 67-year-old female with a significant history of heart failure with reduced ejection fraction; CAD status post 4 stents; CVA; diabetes mellitus with nephropathy; osteomyelitis status post bilateral foot amputation; morbid obesity; depression and anxiety who presented to [facility] [place] with chest pain that started several hours before presentation. Patient chest pain is substernal and it radiates to proximal to her left shoulder. Initially pain appeared as indigestion and heartburn. She took Pepto-Bismol without any real relief. Later her chest pain was a pressure like somebody sitting on her chest. Reportedly when paramedics arrived her oxygen saturation was in the low 80s and she was placed on 2 L nasal cannula oxygen with improvement. Paramedics gave patient nitroglycerin and aspirin with some improvement. Patient uses 1 pillow to sleep all the time and has no change. She reports chronic paroxysmal nocturnal dyspnea. She reported always her right leg is bigger than her left leg. She is unable to tell whether she has gained any weight. Emergency department doctor reports crackles on examination. Reportedly EKG showed left bundle branch block which is identical to EKG in December 2021 of this year. At [facility] ED initial high sensitive troponin was 530. Repeat high sensitive opponent was 790. BNP was 16,000. Chest x-ray reportedly showed airspace disease at the right lung base and small pleural effusion. Patient was given Lasix 40 mg IV push at [facility] ED. D-dimer age-adjusted was normal. Patient was started on heparin drip. White count was 6.1. Hemoglobin was 10.1 and it was around baseline. Platelets was 157. Glucose 220, sodium 140, potassium 4, chloride 103, CO2 23. BUN at 32 and creatinine 1.4 (reportedly around baseline from records at [place] arrival). Reportedly an echocardiogram in December 2021 at [facility] showed ejection fraction of 35 to 40%. [facility] Medical History Amputation foot, bilat Anemia Anxiety Chronic pain Congestive heart failure (CHF) Depression Former smoker Rheumatoid arthritis Home Medications insulin glargine 100 unit/mL (3 mL) subcutaneous pen (Basaglar KwikPen U-100 Insulin) 20 unit SQ TID blood sugar 05/22/18 [History Last Taken 07/02/18] furosemide 40 mg tablet 40 mg PO QODAY fluid retention 05/30/22 [History Last Taken Unknown] gabapentin 600 mg tablet 600 mg PO BID PRN nerve pain 05/30/22 [History Last Taken 05/29/22] metoprolol succinate 25 mg tablet,extended release 24 hr 25 mg PO DAILY blood pressure 05/30/22 [History Last Taken Unknown] pantoprazole 40 mg tablet,delayed release 40 mg PO DAILY depression 05/30/22 [History Last Taken Unknown] ropinirole 1 mg tablet 1 mg PO DAILY restless leg 05/30/22 [History Last Taken Unknown] rosuvastatin 40 mg tablet 40 mg PO QHS cholesterol 05/30/22 [History Last Taken Unknown] sertraline 50 mg tablet 50 mg PO DAILY depression 05/30/22 [History Last Taken Unknown] ticagrelor 90 mg tablet (Brilinta) 90 mg PO BID anticoagulant 05/30/22 [History Last Taken Unknown] tizanidine 2 mg tablet mg 05/30/22 [History Last Taken Unknown] trazodone 100 mg tablet 100 mg PO QHS sleep 05/30/22 [History Last Taken Unknown] Allergy/AdvReac Type Severity Reaction Status Date / Time amoxicillin Allergy Hives Verified 12/10/18 15:13 clindamycin Allergy Unknown Verified 12/10/18 15:13 Penicillins Allergy Rash Verified 12/10/18 15:13 pentazocine [From Talwin] Allergy Unknown Verified 12/10/18 15:13 tramadol [From Ultram] Allergy Unknown Verified 12/10/18 15:13 varenicline [From Chantix] AdvReac Unknown Verified 12/10/18 15:13 Family History Father Legionnaires' disease Brother Heart disease Mother Diabetes Surgical History H/O: hysterectomy Social History Smoking Status: Former smoker ROS ROS Narrative Pertinent positives and pertinent negatives as noted in HPI. All other systems were reviewed and are negative Physical Exam Narrative Physical exam: General: Well-nourished, well-developed. Head: Normocephalic, atraumatic, no tenderness Eyes: Vision is grossly intact. EOMI ENT, no trauma, moist mucous membranes, no rhinorrhea Neck: Nontender, full range of motion. CVS: Regular rate and rhythm. S1-S2 present. No murmur, gallop or rub. Respiratory : Rales, chest wall nontender, no wheezing Abdomen: Soft, nontender, nondistended, normal bowel sounds, no masses : Deferred Back: Nontender, no CVA tenderness Extremities: Nontender full range of motion, bilateral midfoot amputation Skin: Normal color, no trauma, abrasions Neuro: Alert, oriented, cranial nerves II through XII grossly intact. Psychiatry: Normal mood. Normal affect. Not depressed. Not anxious. Results Lab / Micro Data Result Diagrams: 05/30/22 06:19 05/30/22 06:19 Assessment & Plan Assessment/Plan (1) Coronary artery disease: (2) NSTEMI, initial episode of care: (3) CHF exacerbation: (4) Diabetes: PLAN: Plan Nstemi Elevated high since he troponin at outside hospital and chest pain. Continue to trend troponin. Place on a monitored bed at PCU ASA 81 mg p.o. daily ordered Plavix continued SL NTG 0.4 mg prn as needed for chest pain ordered Morphine as needed for pain ordered We will check lipid panel. Serial cardiac enzymes ordered Stat EKG as needed for chest pain Cardiology consult. Started on heparin drip at outside hospital and continued. DVT prophylaxis ordered. Diabetes mellitus Patient with hyperglycemia on presentation NPO. Monitor Accu-Cheks Correction scale insulin ordered. Acute Exacerbation of heart failure with reduced ejection fraction Weight on admission to the floor; and then daily Strict I&O's Severely elevated BNP of 16,000 at outside hospital Last echocardiogram at outside hospital reportedly was in December 2021. Hold home p.o. Lasix. Lasix 40 mg IV twice daily ordered. DVT prophylaxis: Not indicated as per therapy start on heparin drip. Charges/Coding Visit Charges Inpatient E&M: 71354 In Hosp L3
[2022-05-30 06:37] LABS: Absolute Lymphocyte Count 1.42 X10^3/uL (0.83-4.51); Absolute Neutrophil Count 3.1 X10^3/uL (2.0-7.7); Basophil# 0.03 X10^3/uL; Basophil% 0.6 % (0-1); Eosinophil# 0.12 X10^3/uL; Eosinophils% 2.4 % (0-5); Hemoglobin 7.9 g/dL (12.0-15.0); Lymphocyte # 1.42 X10^3/ul (0.83-4.51); Lymphocyte % 28.2 % (19-41); Mean Corp Hgb Conc 32.9 g/dL (32-36); Mean Corpuscular Hgb 31.6 pg (27.0-32.0); Mean Platelet Vol. 9.5 fl (6.2-12.0); Monocyte# 0.34 X10^3/uL; Monocyte% 6.8 % (0-10); NRBC Flagged by Analyzer 0 % (0-5); Neutrophil # 3.11 X10^3/uL (2.7-7.7); Neutrophil % 61.8 % (47-70); Platelet Count 128 K/mm3 (150-450); RBC Distribution Width CV 14.6 % (11.6-14.6); RBC Distribution Width SD 50.7 fl (35.1-43.9)
[2022-05-30] MEDS: Morphine 4 MG/ML Syringe IV (06:42)
[2022-05-30] MEDS: Insulin Lispro 100 UNIT/ML INSULN.PEN SC ×2 (06:43→22:08)
[2022-05-30] MEDS: HEPARIN/D5w 25,000 UNITS 25,000 UNITS/250 ML IV.SOLN. 13.8 UNITS CONT INF (06:44)
[2022-05-30 07:20] LABS: Anion Gap 10 (5-15); BUN 34 mg/dL (7-18); BUN/Creat Ratio 28.1 RATIO (10-20); Calcium,Total 8.4 mg/dL (8.5-10.1); Chloride 109 mmol/L (98-107); Cholesterol 83 mg/dL (200); Creatinine, Serum 1.21 mg/dL (0.55-1.02); EST Glomerular Filtration Rate 47 mL/min (>60); Est Glom Filt Rate - Afr Amer 57 mL/min (>60); Estimated Creatinine Clearance 41.08 ml/min; Glucose 160 mg/dL (74-106); High Density Lipoprotein 38 mg/dL; Potassium 3.9 mmol/L (3.5-5.1); Sodium Level 142 mmol/L (136-145); Triglycerides 61 mg/dL; Troponin-I HS 975 pg/mL (3.0-54.0); Very Low Density Lipoprotein 12 mg/dL (5-40)
--- NOTE | 2022-05-30 08:04 | CON.PCM.CA_ITS ---
Assessment & Plan Assessment/Plan (1) NSTEMI, initial episode of care: PLAN: She presents with chest discomfort and is noted to have a non-ST elevation myocardial infarction. She is anemic and it is not clear whether this is due to plaque disruption or due to demand ischemia. I would recommend at this time that we perform a cardiac catheterization to at least define her coronary anatomy and depending on the findings further recommendations can be made. She is already on ticagrelor and this will be continued. Continue beta-roxana Continue high intensity statin Addendum: Cardiac catheterization today demonstrated previously stented LAD which is noted to be patent, Left circumflex artery previously stented and severely diseased. Right coronary artery subtotally occluded with the acute right ventricular marginal branch and PDA is patent Severe left ventricular systolic dysfunction. The patient underwent PCI of the circumflex artery. (2) CHF exacerbation: PLAN: She does have evidence of heart failure with reduced ejection fraction based on her previous echocardiographic findings. We will continue her on guideline directed medical therapy. Evaluation of her left ventricular function demonstrated an ejection fraction estimated to be between 15 and 20%. We will continue with guideline directed medical therapy. We will switch her metoprolol to carvedilol We will consider Entresto in a.m. At some point need to consider an SGLT2 inhibitor (3) Anemia: PLAN: She is anemic the etiology of which is not clear at this time. She has been on ticagrelor which will be continued. Depending on the definition of the coronary anatomy further recommendations will be made as to whether she will benefit from a GI evaluation. Thank you for allowing me to participate in the care of your patient. Please don't hesitate to call if any issues arise. (4) Coronary artery disease: HPI Consult Data Date of Consult: 05/30/22 HPI Narrative HPI Narrative: VERNON RUCKER, is a 67 F who presents [facility] after exper iencing chest and abdominal discomfort almost all day yesterday. She has a previous history of heart failure with reduced ejection fraction; CAD status post 4 stents; CVA; diabetes mellitus with nephropathy; osteomyelitis status post bilateral? foot amputation; morbid obesity; depression and anxiety. Patient chest pain is substernal and it radiates to proximal to her left shoulder.? Initially pain appeared as indigestion and heartburn.? She took Pepto-Bismol without any real relief.? Later her chest pain was a pressure like somebody sitting on her chest. She had someone call the paramedics who brought her in and put her on oxygen. She has had significant bruising of her legs and arms over the last few months. She was seen in the emergency room and was noted to have an initial elevated high-sensitivity troponin as well as a left bundle branch block. Natruretic peptide level was also elevated. She was started on a heparin drip and then transferred to this hospital. She last had an echocardiogram done at that hospital reportedly demonstrating an ejection fraction of 35 to 40% in December of this year. She is currently pain-free at this time. Cardiology was asked to see due to the elevated abnormal blood levels. She has had at least 2 heart catheterizations and says that she has had some stents placed the last of which was in 2019. [facility] Medical History (Updated 05/30/22 @ 08:[address] Tra Miller MD) Amputation foot, bilat Anemia Anxiety Chronic pain Congestive heart failure (CHF) Depression Former smoker Rheumatoid arthritis Home Medications insulin glargine 100 unit/mL (3 mL) subcutaneous pen (Basaglar KwikPen U-100 Insulin) 20 unit SQ TID blood sugar 05/22/18 [History Last Taken 07/02/18] furosemide 40 mg tablet 40 mg PO QODAY fluid retention 05/30/22 [History Last Taken Unknown] gabapentin 600 mg tablet 600 mg PO BID PRN nerve pain 05/30/22 [History Last Taken 05/29/22] metoprolol succinate 25 mg tablet,extended release 24 hr 25 mg PO DAILY blood pressure 05/30/22 [History Last Taken Unknown] pantoprazole 40 mg tablet,delayed release 40 mg PO DAILY depression 05/30/22 [History Last Taken Unknown] ropinirole 1 mg tablet 1 mg PO DAILY restless leg 05/30/22 [History Last Taken Unknown] rosuvastatin 40 mg tablet 40 mg PO QHS cholesterol 05/30/22 [History Last Taken Unknown] sertraline 50 mg tablet 50 mg PO DAILY depression 05/30/22 [History Last Taken Unknown] ticagrelor 90 mg tablet (Brilinta) 90 mg PO BID anticoagulant 05/30/22 [History Last Taken Unknown] tizanidine 2 mg tablet mg 05/30/22 [History Last Taken Unknown] trazodone 100 mg tablet 100 mg PO QHS sleep 05/30/22 [History Last Taken Unknown] Allergy/AdvReac Type Severity Reaction Status Date / Time amoxicillin Allergy Hives Verified 12/10/18 15:13 clindamycin Allergy Unknown Verified 12/10/18 15:13 Penicillins Allergy Rash Verified 12/10/18 15:13 pentazocine [From Talwin] Allergy Unknown Verified 12/10/18 15:13 tramadol [From Ultram] Allergy Unknown Verified 12/10/18 15:13 varenicline [From Chantix] AdvReac Unknown Verified 12/10/18 15:13 Family History Father Legionnaires' disease Brother Heart disease Mother Diabetes Surgical History H/O: hysterectomy Social History Smoking Status: Former smoker Prior Cardiac Testing/Procedures Prior Cardiac Testing/Procedures: Cardiac Angiogram ROS Constitutional Constitutional: Denies fever(s) or weight loss Eyes Eyes: Reports systems reviewed and no addt'l complaints, except as documented ENT HEENT: Reports systems reviewed and no addt'l complaints, except as documented Cardiovascular Cardiovascular: Reports chest pain at rest and dyspnea at rest; Denies chest pain with activity, dyspnea on exertion, edema, palpitations or paroxysmal nocturnal dyspnea Respiratory/Chest Respiratory/Chest: Denies dyspnea on exertion, productive cough, shortness of breath at rest or shortness of breath with exertion Gastrointestinal Gastrointestinal: Denies change in bowel habits, nausea, vomiting or weight changes Genitourinary Genitourinary: Denies difficulty urinating Musculoskeletal Musculoskeletal: Denies joint stiffness or muscle weakness Integumentary Integumentary: Denies lesions Neurologic Neurologic: Denies dizziness or syncope Psychiatric Psychiatric: Denies anxiety Endocrine Endocrinology: Denies excessive sweating or fatigue Hematologic/Lymphatic Hematologic/Lymphatic: Denies anemia Allergic/Immunologic Allergic/Immunologic: Denies seasonal rhinorrhea Physical Exam Const alert, oriented x3 and no apparent distress General Appearance: cooperative HEENT hearing grossly normal bilaterally Head and Scalp: atraumatic Eyes EOMs intact bilaterally Neck General: normal visual inspection Chest inspection of chest normal and palpation of chest normal Resp normal respiratory effort Auscultation: clear to auscultation bilaterally Cardio regular rate, regular rhythm, S1 normal heart sound and S2 normal heart sound Jugular Venous Distention: JVD GI normal to inspection, nondistended, normoactive bowel sounds Extremity normal capillary refill and no pedal edema Peripheral Pulses: Yes pulses 2+ throughout and femoral pulses present Skin no rashes or lesions noted Neuro oriented x3 and CN's II-XII intact bilaterally Psych Appearance: grossly normal and appropriate Risk Stratification Risk Stratification Applicable: Yes Age >/= 65: Yes >/= 3 CAD Risk Factors (HTN, HLD, DM, family hx of CAD, or current smoker): Yes Aspirin Use in the Past 7 Days: Yes Severe Angina (>/= episodes in 24 hours): Yes EKG ST Changes >/= 0.5mm: No Positive Cardiac Marker: Yes ISIDRA Risk Stratification Score: 5 ISIDRA % Risk: 25% Risk Objective Data Vital Signs: Vital Signs Pulse O2 Del Method O2 Flow Rate 48 L Nasal Cannula 2 05/30/22 07:00 05/30/22 07:32 05/30/22 07:32 Oxygen Flow Rate (L/min) 2 Oxygen Delivery Method Nasal Cannula Weight: 210 lb 8.663 oz Body Mass Index (BMI) 34.0 Intake & Output: Intake and Output for Last 24 Hours 05/28/22 05/29/22 05/30/22 23:59 23:59 23:59 Output Total 0 / 0 Balance 0 / 0 Lab / Micro Data Result Diagrams: 05/30/22 06:19 05/30/22 06:19 Labs: Laboratory Results - last 24 hr 05/30/22 06:19: WBC 5.0, RBC 2.50 L, Hgb 7.9 L, Hct 24.0 L, MCV 96.0, MCH 31.6, MCHC 32.9, RDW Std Deviation 50.7 H, RDW Coeff of Nohemy 14.6, Plt Count 128 L, MPV 9.5, Immature Gran % (Auto) 0.200, Neut % (Auto) 61.8, Lymph % (Auto) 28.2, Dubois % (Auto) 6.8, Eos % (Auto) 2.4, Baso % (Auto) 0.6, Absolute Neuts (auto) 3.1, Absolute Lymphs (auto) 1.42, Nucleated RBC % 0 05/30/22 06:19: Sodium 142, Potassium 3.9, Chloride 109 H, Carbon Dioxide 23.0, Anion Gap 10, BUN 34 H, Creatinine 1.21 H, Estim Creat Clear Calc 41.08, Est GFR (MDRD) Af Amer 57 L, Est GFR (MDRD) Non-Af 47 L, BUN/Creatinine Ratio 28.1 H, Glucose 160 H, Calcium 8.4 L, Troponin I High Sens 975 H*, Triglycerides 61, Cholesterol 83, LDL Cholesterol 33, VLDL Cholesterol 12, HDL Cholesterol 38 L Cardiology Labs/Tests 05/30/22 06:19: WBC 5.0, RBC 2.50 L, Hgb 7.9 L, Hct 24.0 L, MCV 96.0, MCH 31.6, MCHC 32.9, Plt Count 128 L, MPV 9.5, Immature Gran % (Auto) 0.200, Neut % (Auto) 61.8, Lymph % (Auto) 28.2, Dubois % (Auto) 6.8, Eos % (Auto) 2.4, Baso % (Auto) 0.6, Absolute Neuts (auto) 3.1, Nucleated RBC % 0 05/30/22 06:19: Sodium 142, Potassium 3.9, Chloride 109 H, Carbon Dioxide 23.0, Anion Gap 10, BUN 34 H, Creatinine 1.21 H, Est GFR (MDRD) Af Amer 57 L, Est GFR (MDRD) Non-Af 47 L, BUN/Creatinine Ratio 28.1 H, Glucose 160 H, Calcium 8.4 L, Triglycerides 61, Cholesterol 83, LDL Cholesterol 33, VLDL Cholesterol 12, HDL Cholesterol 38 L Rhythm: EKG: ECHO: Stress Test: Cardiac Cath: PCI: CT Surgery: Holter monitor: EPS: PPM: CXR: Chest CT Scan:
--- NOTE | 2022-05-30 08:13 | ECHOCS_ITS ---
Reason For Study: CHF Procedure This was a 2D Doppler, Color Flow transthoracic echocardiogram. The study was technically difficult. Contrast injection was performed. Exam performed portable in patient room. Left Ventricle Normal LV size. The estimated ejection fraction is 20 %. There are regional wall motion abnormalities as specified. Infero-Basal: Akinetic. Posterior-Basal: Hypokinetic. Basal inferoseptal: Akinetic. Mid-Posterior: Akinetic. Frederick : Hypokinetic. Mid-Lateral : Hypokinetic. Lateral-Basal: Hypokinetic. Anterio-Basal: Normal. Mid-Anterior : Normal. Right Ventricle Normal RV size. Normal systolic function. Atria Normal left atrium. Normal right atrium. Mitral Valve Normal mitral valve. Mild-Moderate (1-2+) eccentric mitral valve insufficiency. Tricuspid Valve Normal tricuspid valve. Mild to moderate (1-2+) tricuspid valve insufficiency. Pulmonary artery systolic pressure is 46 mmHg. Mild pulmonary hypertension. Aortic Valve Trisinus/trileaflet aortic valve. Mild focal aortic valve calcification. Trivial aortic valve insufficiency. Pulmonic Valve Normal pulmonic valve. Great Vessels Normal aortic root. The pulmonary artery is normal size. Normal inferior vena cava. Pericardium/Pleural No pericardial effusion. Medication Diluted definity 1ml given slow IV push to enhance endocardial definition. MMode/2D Measurements & Calculations LVIDd: 6.4 cm IVSd: 1.1 cm Ao root diam: 3.5 cm LVIDs: 5.5 cm LVPWd: 1.2 cm LA dimension: 4.9 cm RVDd: 3.7 cm FS: 13.9 % LAV(MOD-bp): 75.1 ml LA A4 area: 21.9 cm2 RA A4 area: 16.9 cm2 LAV(MOD-bp) Indexed: 36.7 ml/m2 LAV(MOD-sp2): 72.1 ml LAV(MOD-sp4): 73.7 ml Time Measurements MV dec time: 0.21 sec Doppler Measurements & Calculations MV E max justin: 103.2 cm/sec Lat Peak E' Justin: 3.4 cm/sec Med Peak E' Justin: 3.6 cm/sec MV A max justin: 60.5 cm/sec E/E' lat: 30.3 E/E' med: 28.6 MV E/A: 1.7 MV V2 max: 123.4 cm/sec MV P1/2t max justin: 119.4 cm/sec Ao V2 max: 154.2 cm/sec MV max P.1 mmHg MV P1/2t: 71.0 msec Ao max P.5 mmHg MV V2 mean: 48.9 cm/sec MV dec slope: 492.5 cm/sec2 Ao V2 mean: 109.0 cm/sec MV mean P.3 mmHg Ao mean P.4 mmHg MV V2 VTI: 38.9 cm MVA(P1/2t): 3.1 cm2 Ao V2 VTI: 42.5 cm LV V1 max: 96.7 cm/sec MR max justin: 357.1 cm/sec PA V2 max: 87.7 cm/sec LV V1 max P.7 mmHg MR max P.0 mmHg LV V1 mean P.5 mmHg LV V1 mean: 75.5 cm/sec LV V1 VTI: 28.7 cm TR max justin: 325.8 cm/sec TR max P.5 mmHg ECHO/Echo Complete W/ Contrast Interpretation Summary Normal LV size. The estimated ejection fraction is 20 %. There are regional wall motion abnormalities as specified. Mild-Moderate (1-2+) eccentric mitral valve insufficiency. Pulmonary artery systolic pressure is 46 mmHg. Mild pulmonary hypertension. Ordering Physician: Tra Miller Referring Physician: Justino Yost Performed By: Magan Tellez RCS
[2022-05-30] MEDS: Pantoprazole Sodium 40 MG Tablet PO (08:34)
[2022-05-30] MEDS: Sertraline 50 MG Tablet PO (08:34)
[2022-05-30] MEDS: Aspirin E.C. 81 MG Tablet PO (08:34)
[2022-05-30] MEDS: TICAGRELOR 90 MG TABLET PO (08:34)
[2022-05-30] MEDS: 0.9% Saline Lock 10 ML Syringe IV ×2 (08:35→22:00)
[2022-05-30 08:50] LABS: Bedside Glucose 155 mg/dL (74-106)
[2022-05-30] MEDS: Acetaminophen 325 MG Tablet 650 MG PO ×2 (10:03→22:30)
--- NOTE | 2022-05-30 11:59 | CASEMGMT ---
According to [facility] website, the following are in-network tertiary facilities: [facility], [place], [facility], [facility], [facility], and . Dhara BEST CM
--- NOTE | 2022-05-30 12:12 | CL.D_ITS ---
Patient Name: VERNNO RUCKER Study Date: 05/30/2022 Performing: Tra Miller MD Ht: 66 inches 167.64 cm : 1955 Wt: 210.54 lbs 95.5 kg Age: 67 Gender: female BSA: 2.04 PROCEDURE(S) PERFORMED DC01-(73042)LHC/COR/LV IC10-([id number])FFR, CORONARY OR GRAFT, INITIAL VESSEL IC01-([id number])PTCA, SINGLE CORONARY ARTERY CLINICAL PROFILE AND INDICATIONS Indications: Cardiomyopathy Heart Failure: NYHA Class: 3, Newly Diagnosed: Yes, Heart Failure Type: Systolic Stress/Imaging Stress/Image Study Performed: No CONCLUSIONS Severe triple-vessel disease with subtotally occluded right ventricular acute marginal branch, severe disease of the previously stented circumflex artery involving nearly the entire vessel, moderate ostial previously stented left anterior descending artery and severe left ventricular systolic dysfunction RECOMMENDATIONS No recommendations -> Normal findings Would recommend PCI to the circumflex artery, FFR to the LAD, guideline directed medical therapy DESCRIPTION OF PROCEDURE The patient arrived to the procedure lab. The risks and benefits of the procedure as well as a full description of our services here and current unavailability of surgical backup were fully explained to the patient and/or their significant other prior to the catheterization. The Timeout was completed, verifying the correct patient and procedure. The patient's procedural site was prepped and draped in the usual fashion. Local anesthetic was given subcutaneously to right radial region with Lidocaine 2%. Local anesthetic was given subcutaneously to right groin region with Lidocaine 2%. Using a modified Seldinger technique, arterial access was obtained via the right femoral artery, a 5Fr sheath was inserted. Left Coronary Artery selective angiography was performed in multiple views using a 5 Fr. JL4 catheter. Right Coronary Artery selective angiography was then performed in multiple views using a 5 Fr. 3DRC (Idris) catheter. Left Ventriculography was performed in CLARK projection using a 5 Fr. Pigtail catheter. LV to AO pullback pressures were then recorded.Contrast was injected through the sheath and the Right Iliac and Femoral artery were assessed for possible closure device.The arterial sheath was pulled and a Perclose closure device was deployed for hemostasis CORONARY ANGIOGRAPHY DOMINANCE: Right Dominant LEFT HEART ASSESSMENT Left Ventricular Ejection Fraction: by LV Gram 15 % Inferior Basal Akinesis. Inferior Mid Akinesis. Anterior Hypokinesis - Severe Severe left ventricular systolic dysfunction with akinetic basal and mid inferior wall and severely hypokinetic anterior wall and akinetic lateral wall. Estimated ejection fraction of 15% LEFT MAIN: Mild calcification LEFT ANTERIOR DESCENDING ARTERY: Previously stented vessel with ostial 60% stenotic lesion noted in the rest of the vessel is patent with no high-grade stenosis noted CIRCUMFLEX ARTERY: Previously stented vessel with ostial 60 to 70% stenosis and the mid circumflex artery with high-grade in-stent stenosis and mid to distal vessel with high-grade in-stent stenosis and distal diffuse disease noted RIGHT CORONARY ARTERY: Dominant right coronary artery with proximal stent patent and acute marginal branch subtotally occluded in the mid right coronary artery and distal right coronary artery with moderate luminal irregularities present COMPLICATIONS No Complications PROCEDURE MEDICATIONS Fentanyl 50 mcg IV Versed 1 mg IV Fentanyl 25 mcg IV Versed 1 mg IV Oxygen: 2 L/min via nasal cannula Heparin 7000 unit(s) IV 05/30/2022 11:35:41 SUMMARY OF HEMODYNAMIC DATA Time AIR REST ECG 10:21:34 AO 121/45 (69) SA 11:04:27 LV 108/11, 19 11:12:58 LV 104/12, 21 11:13:05 LV 105/14, 22 11:14:01 LVp 106/23, 34 11:14:10 AOp 104/36 (57) 11:14:15 Signed By Tra Miller MD On 05/30/2022 12:11:44 Tra Miller MD
--- NOTE | 2022-05-30 12:30 | EKG12_ITS ---
Test Reason : AM EKG Blood Pressure : / mmHG Vent. Rate : 058 BPM Atrial Rate : 058 BPM P-R Int : 172 ms QRS Dur : 122 ms QT Int : 478 ms P-R-T Axes : 070 007 171 degrees QTc Int : 469 ms Sinus bradycardia Left ventricular hypertrophy with QRS widening and repolarization abnormality ( [place] product ) Abnormal ECG When compared with ECG of 30-MAY-2022 18:31, MANUAL COMPARISON REQUIRED, DATA IS UNCONFIRMED Confirmed by STEPHANIE MANRIQUEZ, NAVID ([id number]), makeup editor LOTTIE MONDRAGON ([id number]) on 05/31/2022 1:48:04 PM Referred By: LOBO Confirmed By:NAVID BROWN MD
[2022-05-30 12:47] LABS: Platelet Count 122 K/mm3 (150-450); RET-HE 33.6 pg (30-35); Reticulocyte Count 5.79 % (0.5-1.5)
--- NOTE | 2022-05-30 12:52 | CL.I_ITS ---
Patient Name: VERNON RUCKER Study Date: 05/30/2022 Performing: Mj Fleming MD Ht: 66 inches 167.64 cm : 1955 Wt: 210.8 lbs 95.5 kg Age: 67 Gender: female BSA: 2.04 PROCEDURE(S) PERFORMED IC10-([id number])FFR, CORONARY OR GRAFT, INITIAL VESSEL [id number])PTCA, SINGLE CORONARY ARTERY CLINICAL PROFILE AND CO-MORBIDITIES Indications: Cardiomyopathy Heart Failure: NYHA Class: 3, Newly Diagnosed: Yes, Heart Failure Type: Systolic Stress/Imaging Stress/Image Study Performed: No CONCLUSIONS Successful PTCA of ISR of ostial and mid LCx. iFR in the LAD was 0.94 consistent with stenosis that can be treated medically at this time RECOMMENDATIONS DESCRIPTION OF PROCEDURE The patient arrived to the procedure lab. The risks and benefits of the procedure as well as a full description of our services here and current unavailability of surgical backup were fully explained to the patient and/or their significant other prior to the catheterization. The Timeout was completed, verifying the correct patient and procedure. The patient's procedural site was prepped and draped in the usual fashion. Local anesthetic was given subcutaneously to right radial region with Lidocaine 2%. Local anesthetic was given subcutaneously to right groin region with Lidocaine 2% Using a modified Seldinger technique,arterial access was obtained via the right femoral artery, a 5Fr sheath was inserted. Left Coronary Artery selective angiography was performed in multiple views using a 5 Fr. JL4 catheter. Right Coronary Artery selective angiography was then performed in multiple views using a 5 Fr. 3DRC (Idris) catheter. Left Ventriculography was performed in CLARK projection using a 5 Fr. Pigtail catheter. LV to AO pullback pressures were then recorded.The images were reviewed and options discussed. A decision was then made to proceed with an Intervention, IVUS or other adjunct procedure. Arterial sheath was exchanged for a 6 Fr Sheath. XB 3.5 Guide catheter was inserted and engaged into the LCA. The FFR/iFR wire was inserted. Pressures and FFR/iFR were then recorded. iFR measurements were performed. iFR Ratio: 0.94 The FFR/iFR wire was left in place as guide wire. FFR Guide wire was advanced to the Circumflex. 2.5x12 Emerge Balloon catheter was inserted. Balloon catheter was advanced across lesion in the circumflex, mid. Angiogram performed pre balloon dilatation. PTCA balloon inflated at 6 atms for 6 secs. PTCA balloon inflated at 6 atms for 15 secs. PTCA balloon inflated at 6 atms for 5 secs. PTCA balloon inflated at 8 atms for 10 secs. PTCA balloon inflated at 8 atms for 25 secs. PTCA balloon inflated at 8 atms for 7 secs. PTCA balloon inflated at 8 atms for 14 secs. PTCA balloon inflated at 10 atms for 13 secs. Angiogram performed post balloon dilatation. PTCA balloon inflated at 8 atms for 12 secs. PTCA balloon inflated at 6 atms for 7 secs. PTCA balloon inflated at 6 atms for 6 secs. PTCA balloon inflated at 8 atms for 12 secs. PTCA balloon inflated at 8 atms for 8 secs. PTCA balloon inflated at 8 atms for 4 secs. PTCA balloon inflated at 8 atms for 4 secs. PTCA balloon inflated at 8 atms for 6 secs. PTCA balloon inflated at 10 atms for 10 secs. Angiogram performed post balloon dilatation. 3x8 NC Emerge Balloon catheter was inserted. Balloon catheter was advanced across lesion in the circumflex, mid. PTCA balloon inflated at 20 atms for 20 secs. PTCA balloon inflated at 20 atms for 8 secs. Angiogram performed post balloon dilatation. PTCA balloon inflated at 12 atms for 6 secs. Balloon catheter was repositioned to additional lesion in the circumflex, ostial. PTCA balloon inflated at 12 atms for 9 secs. Angiogram performed post balloon dilatation. 2.5x20 Emerge Balloon catheter was inserted. Balloon catheter was advanced across lesion in the circumflex, mid. PTCA balloon inflated at 8 atms for 12 secs. Angiogram performed post balloon dilatation. Contrast was injected through the sheath and the Right Iliac and Femoral artery were assessed for possible closure device. The arterial sheath was pulled and a Perclose closure device was deployed for hemostasis INTERVENTION INFORMATION LESION SITE: LAD (Ostial) Lesion Devices: Cardinal 6 Fr XB3.5 100cm Guide Catheter [employer] (volcano) Coronary FFR Wire LESION SITE: Circumflex (Mid) Lesion Complexity: High/C, chronic total occlusion: No, lesion at bifurcation: No, thrombus present: No, lesion length: 18 mm, culprit lesion: Yes, Previously treated lesion: Yes, Timeframe of previous treatment: Time unknown, Previously treated with a stent: Yes Stent Type: with stent type unknown, In-stent restenosis: Yes Pre Stenosis: 95 % Pre intervention ISIDRA flow: 3 PROCEDURE: Balloon Angioplasty Post Stenosis: 10 % Post intervention ISIDRA flow: 3 Lesion Devices: Cardinal 6 Fr XB3.5 100cm Guide Catheter [employer] (Orienseo) Coronary FFR Wire [employer] EMERGE MR 2.50x12 BALLOON [employer] NC EMERGE MR 3.00x08 BALLOON [employer] EMERGE MR 2.50x20 BALLOON LESION SITE: Circumflex (Ostial) Lesion Complexity: High/C, chronic total occlusion: No, lesion at bifurcation: No, thrombus present: No, lesion length: 6 mm, culprit lesion: Yes, Previously treated lesion: Yes, Timeframe of previous treatment: Time unknown, Previously treated with a stent: Yes Stent Type: with stent type unknown, In-stent restenosis: Yes Pre Stenosis: 70 % Pre intervention ISIDRA flow: 3 PROCEDURE: Balloon Angioplasty 0 % Post intervention ISIDRA flow: 3 Lesion Devices: Cardinal 6 Fr XB3.5 100cm Guide Catheter [employer] (Orienseo) Coronary FFR Wire [employer] NC EMERGE MR 3.00x08 BALLOON COMPLICATIONS No Complications PROCEDURE MEDICATIONS Fentanyl 50 mcg IV Versed 1 mg IV Fentanyl 25 mcg IV Versed 1 mg IV Fentanyl 25 mcg IV Oxygen: 2 L/min via nasal cannula Heparin 7000 unit(s) IV 05/30/2022 11:35:41 SUMMARY OF HEMODYNAMIC DATA Time AIR REST ECG 10:21:34 AO 121/45 (69) SA 11:04:27 LV 108/11, 19 11:12:58 LV 104/12, 21 11:13:05 LV 105/14, 22 11:14:01 LVp 106/23, 34 11:14:10 AOp 104/36 (57) 11:14:15 Signed By Mj Fleming MD On 05/30/2022 12:51:53 Mj Fleming MD
[2022-05-30 12:58] LABS: Ferritin 182 ng/mL (8-252); Iron 37 ug/dL (50-170); Iron Binding Capacity,Total 310 ug/dL (250-450); PERCENT IRON SATURATION 11.9 % (15.0-55.0)
--- NOTE | 2022-05-30 13:37 | CRPHASE1 ---
Patient Communication PHII Cardiac Rehab Discussed with Patient:: Yes Guide to Cardiac Rehab Given to Patient:: Yes Cardiac Rehab Facility Choice List Given to Patient:: Yes Choice Program [facility] CR PHII:: Communication Given to CR Bus And Rail Operator:: Cristóbal Fleming Refer Phase II Cardiac Rehab:: Yes Sessions:: 36 sessions - 3 days/wk, 12 weeks Cardiac Rehabilitation Info Cardiac Rehabilitation Program Information: Cardiac Rehabilitation is important for patients like you who are recovering from a heart problem. Cardiac rehabilitation programs are recognized as integral to the continued care of the patient with coronary heart disease. The cardiac rehabilitation program is designed to optimize a patient's physical, psychological, and social functioning. Health palliative care physician work in cardiac rehabilitation programs and assist you with getting the treatments you need to get stronger and healthier - like exercise, healthy eating habits, and medications. Cardiac rehabilitation has been show to help people with heart problems live longer and have better life enjoyment than people who do not go to cardiac rehabilitation. Please contact the Cardiac Rehabilitation Program at [facility] at in two weeks if you have not heard from them.
--- NOTE | 2022-05-30 13:37 | CRPH1.INSTRU ---
General Education CAD and cardiac anatomy and function:: Patient communicates acknowledgment, Needs reinforcement Explanation of diagnoses and procedures:: Patient communicates acknowledgment, Needs reinforcement Sign/Symptoms of NV:: Patient communicates acknowledgment, Needs reinforcement Antiplatelet therapy: Patient communicates acknowledgment, Needs reinforcement Proper use of NTG-SL: Patient communicates acknowledgment, Needs reinforcement Emergency procedures and activation of EMS: Patient communicates acknowledgment, Needs reinforcement Compliance of all prescribed medications: Patient communicates acknowledgment, Needs reinforcement Smoking Patient Nicotine/Smoking Risk Factors Are:: Non-smoker Recommendations Include:: Previous smoker; encourage continued cessation Nicotine/Smoking Response Code:: Patient communicates acknowledgment, Needs reinforcement Dyslipidemia Patient Dyslipidemia Risk Factors Are:: Total Cholesterol, Triglycerides, HDL, LDL Recommendations Include:: Lipid profile not available, Reviewed NCEP/ATP guidelines, Therapeutic Lifestyle Change dietary guidelines Dyslipidemia Response Code:: Patient communicates acknowledgment, Needs reinforcement Overweight/Obesity Patient Overweight/Obesity Risk Factors Are:: Obesity - > or = 30 Recommendations Include:: Weight loss of 5-10%, Reduced calorie diet, Exercise 5-7 times/week Overweight/Obesity:: Patient communicates acknowledgment, Needs reinforcement Hypertension Recommendations Include:: Maintain BP <130/85, Decrease/maintain normal body weight Hypertension:: Patient communicates acknowledgment, Needs reinforcement Heart Disease Patient Heart Disease Risk Factors Are:: Family history of heart disease < 65 years old Recommendations Include:: Educated family members of their risk Heart Disease Response Code:: Patient communicates acknowledgment, Needs reinforcement Diabetes Patient Diabetes Risk Factors Are:: No documented hx of diabetes Sedentary Patient Sedentary Risk Factors Are:: Lack of regular exercise Recommendations Include:: Aerobic exercise 5-7 times/week for 20-30 minutes continuously, Benefits of regular exercise, Discussed home walking program, Monitored Outpatient Cardiac Rehab Sedentary Response Code:: Patient communicates acknowledgment, Needs reinforcement
--- NOTE | 2022-05-30 14:15 | CASEMGMT ---
RN ARIC Face to Face with patient for initial transition planning/care coordination assessment. RN CM introduced self and role at [facility]. Patient lying in bed, alert and oriented. Patient willing to participate in assessment and is able to answer all questions appropriately. Care providers, pharmacy, and demographics verified. Patient wishes to discharge home, denies need for home health at this time. Patient states she has no further needs or concerns at this time. CM to follow for discharge planning needs that may arise. PCP: Aubree Jeffrey Specialists: Matheus moulder operatorAubree Preferred Pharmacy: Aubree Lloyd; [facility] retail at discharge Insurance: [employer] Prescription Benefit: yes Living Will/HPOA: yes, daughter Irasema Vivar LNOK: daughters, granddaughter Living Arrangements: Patient lives with boyfriend in a first floor apartment with 5 steps and railing to enter the home. Patient states she is independent at home. Transportation: boyfriend DME/HHC: Patient states she has walker and raised toilet at home. No previous HHC. [facility]. Disposition Plan: Patient to discharge home with family support and follow-up plans in place. Nasrin JOHNSON, RN, CM
[2022-05-30 14:36] LABS: Bedside Glucose 110 mg/dL (74-106)
[2022-05-30] MEDS: Furosemide 40 MG/4 ML Vial IV ×2 (14:37→18:27)
--- NOTE | 2022-05-30 15:45 | PCM.PN.HOSP ---
Subjective Subjective Follow-up on acute non-STEMI/CHF exacerbation; Patient seen and examined. She complains of a headache. Denies any chest pain, or dizziness or palpitations. Not on oxygen Objective Data Objective Data Vital Signs: Vital Signs Temp Pulse Resp BP Pulse Ox O2 Del Method O2 Flow Rate 97.5 F L 66 15 131/53 H 100 Room Air 2 05/30/22 14:32 05/30/22 15:03 05/30/22 14:32 05/30/22 14:32 05/30/22 14:32 05/30/22 14:32 05/30/22 08:58 Oxygen Flow Rate (L/min) 2 Oxygen Delivery Method Room Air Weight: 95.5 kg Body Mass Index (BMI) 34.0 Intake & Output: Intake and Output for Last 24 Hours 05/28/22 05/29/22 05/30/22 23:59 23:59 23:59 Intake Total 20.93 / 20.93 Output Total 0 / 0 Balance 20.93 / 20.93 Lab / Micro Data Result Diagrams: 05/30/22 06:19 05/30/22 06:19 Labs: Laboratory Results - last 24 hr 05/30/22 06:19: WBC 5.0, RBC 2.50 L, Hgb 7.9 L, Hct 24.0 L, MCV 96.0, MCH 31.6, MCHC 32.9, RDW Std Deviation 50.7 H, RDW Coeff of Nohemy 14.6, Plt Count 128 L, MPV 9.5, Immature Gran % (Auto) 0.200, Neut % (Auto) 61.8, Lymph % (Auto) 28.2, Cochran % (Auto) 6.8, Eos % (Auto) 2.4, Baso % (Auto) 0.6, Absolute Neuts (auto) 3.1, Absolute Lymphs (auto) 1.42, Nucleated RBC % 0 05/30/22 06:19: Sodium 142, Potassium 3.9, Chloride 109 H, Carbon Dioxide 23.0, Anion Gap 10, BUN 34 H, Creatinine 1.21 H, Estim Creat Clear Calc 41.08, Est GFR (MDRD) Af Amer 57 L, Est GFR (MDRD) Non-Af 47 L, BUN/Creatinine Ratio 28.1 H, Glucose 160 H, Calcium 8.4 L, Troponin I High Sens 975 H*, Triglycerides 61, Cholesterol 83, LDL Cholesterol 33, VLDL Cholesterol 12, HDL Cholesterol 38 L 05/30/22 06:19: Iron 37 L, TIBC 310, Iron Saturation 11.9 L, Ferritin 182 05/30/22 06:19: Retic Count 5.79 H, Immature Retic Fraction 25.50 H, Retic Hgb Equivalent 33.6 05/30/22 06:39: POC Glucose 155 H 05/30/22 12:54: POC Glucose 110 H Radiography Diagnostic Testing: Radiology Impression Echocardiogram 05/30/22 08:13 Interpretation Summary Normal LV size. The estimated ejection fraction is 20 %. There are regional wall motion abnormalities as specified. Mild-Moderate (1-2+) eccentric mitral valve insufficiency. Pulmonary artery systolic pressure is 46 mmHg. Mild pulmonary hypertension. Ordering Physician: Tra Miller Referring Physician: Justino Yost Performed By: Magan Tellez RCS Physical Exam Narrative Physical exam: General: Alert, Oriented x3, Cooperative, No apparent distress HEENT: Atraumatic Oral: Moist Mucosa Neck: Supple Lungs: Diminished to auscultation Cardiovascular: HS I+II, regular, no murmurs Abdomen: Bowel Sounds Present, Soft, Non Tender Extremities: No edema, right wrist and 2nd finger in a splint Skin: No rashes, No breakdown Neurological: Grossly intact Psych/Mental Status: Appropriate Assessment & Plan Assessment/Plan (1) NSTEMI, initial episode of care: PLAN: Plan 1. Acute NSTEMI, s/p cardiac cath, s/p balloon angioplasty Cardiology consulted Continue on aspirin, Coreg, statin, Brilinta 2. Acute exacerbation of heart failure with reduced EF, EF 20% Continue Lasix 40 mg IV twice daily 3. Type II DM, blood sugars fairly controlled, continue insulin sliding scale 4. Anemia, iron deficiency, drop in Hb from 12.6-7. Iron sat 11.9, TIBC is 310 Will give IV venofer, check stool for occult blood Will increase PPI to IV BID 5. Recent right hand and wrist injury, s/p splints and dressing Wound RN consult 6. DVT PPx-patient received heparin during procedure today, will continue heparin subcu from tomorrow Charges/Coding Visit Charges Inpatient E&M: 70181 Subs Hosp L3
[2022-05-30 18:16] LABS: Bedside Glucose 130 mg/dL (74-106)
--- NOTE | 2022-05-30 18:21 | EKG12_ITS ---
Test Reason : cp Blood Pressure : / mmHG Vent. Rate : 089 BPM Atrial Rate : 089 BPM P-R Int : 168 ms QRS Dur : 128 ms QT Int : 406 ms P-R-T Axes : 070 017 144 degrees QTc Int : 493 ms Normal sinus rhythm Left ventricular hypertrophy with QRS widening and repolarization abnormality ( [place] product ) Marked ST abnormality, possible anterior subendocardial injury Abnormal ECG When compared with ECG of 30-MAY-2022 13:27, MANUAL COMPARISON REQUIRED, DATA IS UNCONFIRMED Confirmed by STEPHANIE MANRIQUEZ, NAVID ([id number]), supervising editor news reel LOTTIE MONDRAGON ([id number]) on 05/31/2022 1:48:59 PM Referred By: Confirmed By:NAVID BROWN MD
--- NOTE | 2022-05-30 18:33 | NURSING ---
Charting reviewed with Keri Guevara RN
--- NOTE | 2022-05-30 19:30 | NURSING ---
Pt care was taken over by this nurse. Pt right groin site dressing was dry and intact. No bleeding at the site. patient lying on back in the supine position.
[2022-05-30] MEDS: Pramipexole Di-HCl 0.5 MG Tablet PO (22:09)
[2022-05-30] MEDS: Carvedilol 6.25 MG Tablet PO (22:09)
[2022-05-30] MEDS: traZODone 100 MG Tablet PO (22:09)
[2022-05-30] MEDS: Atorvastatin Calcium 80 MG Tablet PO (22:09)
[2022-05-30 22:10] LABS: Bedside Glucose 226 mg/dL (74-106)
[2022-05-30] MEDS: MELATONIN 3 MG TABLET PO (22:30)
[2022-05-31] VITALS (17 sets, daily range): BP systolic 101–127; BP diastolic 34–45; PULSE 41–68; RESP 16–18; TEMP 36.7–36.9; O2SAT 95–100
--- NOTE | 2022-05-31 00:35 | NURSING ---
PT stated she felt nauseas. Pt requesting milk and saltine crackers. Milk and saltine crackers given to patient by this nurse.
[2022-05-31 06:38] LABS: Hemoglobin 7.8 g/dL (12.0-15.0); Mean Corp Hgb Conc 33.9 g/dL (32-36); Mean Corpuscular Hgb 32.4 pg (27.0-32.0); Mean Corpuscular Volume 95.4 fL (81-99); Platelet Count 124 K/mm3 (150-450); RBC Distribution Width CV 14.6 % (11.6-14.6); RBC Distribution Width SD 50.4 fl (35.1-43.9); Red Blood Count 2.41 M/mm3 (4.2-5.4); White Blood Count 4.3 K/mm3 (4.4-11.0)
[2022-05-31] MEDS: Insulin Lispro 100 UNIT/ML INSULN.PEN SC ×4 (06:43→21:43)
[2022-05-31 07:08] LABS: ALB/GLOB Ratio 0.8 RATIO (0.9-2.4); AST(SGOT) 14 U/L (15-37); Alanine Aminotransfer ALT/SGPT 15 U/L (13-56); Albumin, Serum 2.7 g/dL (3.2-5.0); Alkaline Phosphatase 61 U/L (45-117); Anion Gap 9 (5-15); BUN 35 mg/dL (7-18); BUN/Creat Ratio 21.3 RATIO (10-20); Chloride 104 mmol/L (98-107); Creatinine, Serum 1.64 mg/dL (0.55-1.02); EST Glomerular Filtration Rate 33 mL/min (>60); Est Glom Filt Rate - Afr Amer 40 mL/min (>60); Estimated Creatinine Clearance 30.31 ml/min; Globulin 3.5 g/dL (2.2-4.2); Glucose 137 mg/dL (74-106); Protein, Total 6.2 g/dL (6.4-8.2); Sodium Level 136 mmol/L (136-145)
[2022-05-31 07:10] LABS: Bedside Glucose 160 mg/dL (74-106)
--- NOTE | 2022-05-31 07:45 | PN.CARD_ITS ---
Subjective Subjective Patient seen and evaluated. Appears to be doing better. Objective Data Vital Signs: Vital Signs Temp Pulse Resp BP Pulse Ox O2 Del Method O2 Flow Rate 98.2 F 65 16 124/43 H 98 Room Air 2 05/31/22 05:48 05/31/22 05:48 05/31/22 05:48 05/31/22 05:48 05/31/22 05:48 05/31/22 05:48 05/31/22 00:21 Oxygen Flow Rate (L/min) 2 Oxygen Delivery Method Room Air Weight: 210 lb 15.718 oz Body Mass Index (BMI) 34.0 Intake & Output: Intake and Output for Last 24 Hours 05/29/22 05/30/22 05/31/22 23:59 23:59 23:59 Intake Total 760.93 / 760.93 Output Total 875 / 1075 400 / 400 Balance -114.07 / -314.07 -400 / -400 Lab / Micro Data Result Diagrams: 05/31/22 06:20 05/31/22 06:20 Labs: Laboratory Results - last 24 hr 05/30/22 06:19: Iron 37 L, TIBC 310, Iron Saturation 11.9 L, Ferritin 182 05/30/22 06:19: Retic Count 5.79 H, Immature Retic Fraction 25.50 H, Retic Hgb Equivalent 33.6 05/30/22 06:39: POC Glucose 155 H 05/30/22 12:54: POC Glucose 110 H 05/30/22 17:38: POC Glucose 130 H 05/30/22 21:49: POC Glucose 226 H 05/31/22 06:20: WBC 4.3 L, RBC 2.41 L, Hgb 7.8 L, Hct 23.0 L, MCV 95.4, MCH 32.4 H, MCHC 33.9, RDW Std Deviation 50.4 H, RDW Coeff of Nohemy 14.6, Plt Count 124 L, MPV 9.0 05/31/22 06:20: Sodium 136, Potassium 4.0, Chloride 104, Carbon Dioxide 23.0, Anion Gap 9, BUN 35 H, Creatinine 1.64 H, Estim Creat Clear Calc 30.31, Est GFR (MDRD) Af Amer 40 L, Est GFR (MDRD) Non-Af 33 L, BUN/Creatinine Ratio 21.3 H, Glucose 137 H, Calcium 8.0 L, Total Bilirubin 0.70, AST 14 L, ALT 15, Alkaline Phosphatase 61, Total Protein 6.2 L, Albumin 2.7 L, Globulin 3.5, Albumin/Globulin Ratio 0.8 L 05/31/22 06:42: POC Glucose 160 H Cardiology Labs/Tests 05/30/22 06:19: Iron 37 L, TIBC 310, Iron Saturation 11.9 L, Ferritin 182 05/31/22 06:20: WBC 4.3 L, RBC 2.41 L, Hgb 7.8 L, Hct 23.0 L, MCV 95.4, MCH 32.4 H, MCHC 33.9, Plt Count 124 L, MPV 9.0 05/31/22 06:20: Sodium 136, Potassium 4.0, Chloride 104, Carbon Dioxide 23.0, Anion Gap 9, BUN 35 H, Creatinine 1.64 H, Est GFR (MDRD) Af Amer 40 L, Est GFR (MDRD) Non-Af 33 L, BUN/Creatinine Ratio 21.3 H, Glucose 137 H, Calcium 8.0 L, Total Bilirubin 0.70 Rhythm: EKG: ECHO: Stress Test: Cardiac Cath: PCI: CT Surgery: Holter monitor: EPS: PPM: CXR: Chest CT Scan: Radiography Diagnostic Testing: Radiology Impression Echocardiogram 05/30/22 08:13 Interpretation Summary Normal LV size. The estimated ejection fraction is 20 %. There are regional wall motion abnormalities as specified. Mild-Moderate (1-2+) eccentric mitral valve insufficiency. Pulmonary artery systolic pressure is 46 mmHg. Mild pulmonary hypertension. Ordering Physician: Tra Miller Referring Physician: Justino Yost Performed By: Magan Tellez RCS Physical Exam Const alert, oriented x3 and no apparent distress General Appearance: cooperative HEENT hearing grossly normal bilaterally Head and Scalp: atraumatic Eyes EOMs intact bilaterally Neck General: normal visual inspection Chest inspection of chest normal and palpation of chest normal Resp normal respiratory effort Auscultation: clear to auscultation bilaterally Cardio regular rate, regular rhythm, S1 normal heart sound and S2 normal heart sound Jugular Venous Distention: JVD GI normal to inspection, nondistended, normoactive bowel sounds Extremity normal capillary refill and no pedal edema Peripheral Pulses: Yes pulses 2+ throughout and femoral pulses present Skin no rashes or lesions noted Neuro oriented x3 and CN's II-XII intact bilaterally Psych Appearance: grossly normal and appropriate Assessment & Plan Assessment/Plan (1) NSTEMI, initial episode of care: PLAN: She presents with chest discomfort and is noted to have a non-ST elevation myocardial infarction. Cardiac catheterization demonstrated previously stented LAD which is noted to be patent, Left circumflex artery previously stented and severely diseased. Right coronary artery subtotally occluded with the acute right ventricular marginal branch and PDA is patent Severe left ventricular systolic dysfunction. The patient underwent PCI of the circumflex artery. Plan will be to continue her on aspirin, Brilinta, and a PPI. (2) CHF exacerbation: PLAN: She does have evidence of heart failure with reduced ejection fraction based on her previous echocardiographic findings. We will continue her on guideline directed medical therapy. Evaluation of her left ventricular function demonstrated an ejection fraction estimated to be between 15 and 20%. We will continue with guideline directed medical therapy. We will switch her metoprolol to carvedilol We will consider Entresto in a.m. At some point need to consider an SGLT2 inhibitor (3) Anemia: PLAN: She is anemic the etiology of which is not clear at this time. She has been on ticagrelor which will be continued. Depending on the definition of the coronary anatomy further recommendations will be made as to whether she will zack efit from a GI evaluation. Thank you for allowing me to participate in the care of your patient. Please don't hesitate to call if any issues arise. (4) Coronary artery disease:
[2022-05-31] MEDS: Gabapentin 600 MG Tablet PO (08:56)
[2022-05-31] MEDS: Acetaminophen 325 MG Tablet 650 MG PO (08:56)
[2022-05-31] MEDS: Aspirin E.C. 81 MG Tablet PO (08:56)
[2022-05-31] MEDS: Furosemide 40 MG Tablet PO ×2 (08:56→17:06)
[2022-05-31] MEDS: Ondansetron 4 MG/2 ML Vial IV (08:56)
[2022-05-31] MEDS: Carvedilol 6.25 MG Tablet PO ×2 (08:56→21:43)
[2022-05-31] MEDS: TICAGRELOR 90 MG TABLET PO ×2 (08:56→21:42)
[2022-05-31] MEDS: Sertraline 50 MG Tablet PO (08:56)
--- NOTE | 2022-05-31 10:00 | EKG12_ITS ---
Test Reason : post pci Blood Pressure : / mmHG Vent. Rate : 053 BPM Atrial Rate : 053 BPM P-R Int : 174 ms QRS Dur : 128 ms QT Int : 510 ms P-R-T Axes : 066 009 184 degrees QTc Int : 478 ms Sinus bradycardia Non-specific intra-ventricular conduction block T wave abnormality, consider inferior ischemia T wave abnormality, consider anterolateral ischemia Abnormal ECG Confirmed by NAVID BROWN MD ([id number]), news assignment editor LOTTIE MONDRAGON ([id number]) on 05/31/2022 1:50:01 PM Referred By: Riki Confirmed By:NAVID BROWN MD
[2022-05-31 11:35] LABS: Bedside Glucose 150 mg/dL (74-106)
[2022-05-31] MEDS: proCHLORPERazine 10 MG/2 ML Vial IV (11:44)
--- NOTE | 2022-05-31 12:35 | PCM.PN.HOSP ---
Subjective Subjective Follow-up on acute non-STEMI/CHF exacerbation; Patient seen and examined. No acute events overnight. Denies any chest pain, or dizziness or palpitations. Objective Data Objective Data Vital Signs: Vital Signs Temp Pulse Resp BP Pulse Ox O2 Del Method O2 Flow Rate 98.3 F 65 16 125/41 H 99 Room Air 2 05/31/22 10:35 05/31/22 10:35 05/31/22 10:35 05/31/22 10:35 05/31/22 10:35 05/31/22 10:35 05/31/22 10:35 Oxygen Flow Rate (L/min) 2 Oxygen Delivery Method Room Air Weight: 95.7 kg Body Mass Index (BMI) 34.0 Intake & Output: Intake and Output for Last 24 Hours 05/29/22 05/30/22 05/31/22 23:59 23:59 23:59 Intake Total 760.93 / 760.93 275.25 / 275.25 Output Total 875 / 1075 400 / 400 Balance -114.07 / -314.07 -124.75 / -124.75 Lab / Micro Data Result Diagrams: 05/31/22 06:20 05/31/22 06:20 Labs: Laboratory Results - last 24 hr 05/30/22 06:19: Iron 37 L, TIBC 310, Iron Saturation 11.9 L, Ferritin 182 05/30/22 06:19: Retic Count 5.79 H, Immature Retic Fraction 25.50 H, Retic Hgb Equivalent 33.6 05/30/22 12:54: POC Glucose 110 H 05/30/22 17:38: POC Glucose 130 H 05/30/22 21:49: POC Glucose 226 H 05/31/22 06:20: WBC 4.3 L, RBC 2.41 L, Hgb 7.8 L, Hct 23.0 L, MCV 95.4, MCH 32.4 H, MCHC 33.9, RDW Std Deviation 50.4 H, RDW Coeff of Nohemy 14.6, Plt Count 124 L, MPV 9.0 05/31/22 06:20: Sodium 136, Potassium 4.0, Chloride 104, Carbon Dioxide 23.0, Anion Gap 9, BUN 35 H, Creatinine 1.64 H, Estim Creat Clear Calc 30.31, Est GFR (MDRD) Af Amer 40 L, Est GFR (MDRD) Non-Af 33 L, BUN/Creatinine Ratio 21.3 H, Glucose 137 H, Calcium 8.0 L, Total Bilirubin 0.70, AST 14 L, ALT 15, Alkaline Phosphatase 61, Total Protein 6.2 L, Albumin 2.7 L, Globulin 3.5, Albumin/Globulin Ratio 0.8 L 05/31/22 06:42: POC Glucose 160 H 05/31/22 11:04: POC Glucose 150 H Radiography Diagnostic Testing: Radiology Impression Echocardiogram 05/30/22 08:13 Interpretation Summary Normal LV size. The estimated ejection fraction is 20 %. There are regional wall motion abnormalities as specified. Mild-Moderate (1-2+) eccentric mitral valve insufficiency. Pulmonary artery systolic pressure is 46 mmHg. Mild pulmonary hypertension. Ordering Physician: Tra Miller Referring Physician: Justino Yost Performed By: Magan Tellez RCS Physical Exam Narrative Physical exam: General: Alert, Oriented x3, Cooperative, No apparent distress HEENT: Atraumatic Oral: Moist Mucosa Neck: Supple Lungs: Diminished to auscultation Cardiovascular: HS I+II, regular, no murmurs Abdomen: Bowel Sounds Present, Soft, Non Tender Extremities: No edema, right wrist and 2nd finger in a splint Skin: No rashes, No breakdown Neurological: Grossly intact Psych/Mental Status: Appropriate Assessment & Plan Assessment/Plan (1) NSTEMI, initial episode of care: PLAN: Plan 1. Acute NSTEMI, s/p cardiac cath, s/p balloon angioplasty Cardiology consulted Continue on aspirin, Coreg, statin, Brilinta 2. Acute exacerbation of heart failure with reduced EF, EF 20% Continue Lasix 40 mg po twice daily 3. Type II DM, blood sugars fairly controlled, continue insulin sliding scale 4. Anemia, iron deficiency, hemoglobin remains at 7.8 Iron sat 11.9, TIBC is 310 Stool for occult blood pending Continue on IV Venofer(day2) Continue on IV PPI twice daily 5. Recent right hand and wrist injury, s/p splints and dressing Wound RN consult 6. DVT PPx-Heparin subcu Charges/Coding Visit Charges Inpatient E&M: 59806 Subs Hosp L2
[2022-05-31 16:26] LABS: Bedside Glucose 172 mg/dL (74-106)
[2022-05-31] MEDS: traZODone 100 MG Tablet PO (21:42)
[2022-05-31] MEDS: Atorvastatin Calcium 80 MG Tablet PO (21:42)
[2022-05-31] MEDS: Pramipexole Di-HCl 0.5 MG Tablet PO (21:42)
[2022-05-31] MEDS: Heparin Injection (Vial) 5,000 UNIT/ML VIAL 5000 UNIT SC (21:43)
[2022-05-31] MEDS: MELATONIN 3 MG TABLET PO (21:51)
[2022-05-31 22:50] LABS: Bedside Glucose 217 mg/dL (74-106)
[2022-06-01] VITALS (13 sets, daily range): BP systolic 114–133; BP diastolic 44–56; PULSE 52–63; RESP 16–18; TEMP 35.8–36.6; O2SAT 95–100
[2022-06-01] MEDS: Insulin Lispro 100 UNIT/ML INSULN.PEN SC ×2 (06:35→11:01)
[2022-06-01] MEDS: Heparin Injection (Vial) 5,000 UNIT/ML VIAL 5000 UNIT SC (06:35)
[2022-06-01 07:06] LABS: Bedside Glucose 194 mg/dL (74-106)
--- NOTE | 2022-06-01 08:14 | PN.CARD_ITS ---
Subjective Subjective Patient seen and evaluated. Appears to be doing well. Objective Data Vital Signs: Vital Signs Temp Pulse Resp BP Pulse Ox O2 Del Method O2 Flow Rate 97.8 F 60 16 114/45 L 97 Nasal Cannula 2 06/01/22 03:40 06/01/22 06:48 06/01/22 03:40 06/01/22 03:40 06/01/22 07:51 06/01/22 07:51 06/01/22 07:51 Oxygen Flow Rate (L/min) 2 Oxygen Delivery Method Nasal Cannula Weight: 204 lb 9.423 oz Body Mass Index (BMI) 34.0 Intake & Output: Intake and Output for Last 24 Hours 05/30/22 05/31/22 06/01/22 23:59 23:59 23:59 Intake Total 760.93 / 760.93 1615.25 / 1615.25 Output Total 875 / 1075 1400 / 1400 Balance -114.07 / -314.07 215.25 / 215.25 Lab / Micro Data Result Diagrams: 05/31/22 06:20 05/31/22 06:20 Labs: Laboratory Results - last 24 hr 05/31/22 11:04: POC Glucose 150 H 05/31/22 15:58: POC Glucose 172 H 05/31/22 21:37: POC Glucose 217 H 06/01/22 06:33: POC Glucose 194 H Cardiology Labs/Tests Rhythm: EKG: ECHO: Stress Test: Cardiac Cath: PCI: CT Surgery: Holter monitor: EPS: PPM: CXR: Chest CT Scan: Physical Exam Const alert, oriented x3 and no apparent distress General Appearance: cooperative HEENT hearing grossly normal bilaterally Head and Scalp: atraumatic Eyes EOMs intact bilaterally Neck General: normal visual inspection Chest inspection of chest normal and palpation of chest normal Resp normal respiratory effort Auscultation: clear to auscultation bilaterally Cardio regular rate, regular rhythm, S1 normal heart sound and S2 normal heart sound Jugular Venous Distention: JVD GI normal to inspection, nondistended, normoactive bowel sounds Extremity normal capillary refill and no pedal edema Peripheral Pulses: Yes pulses 2+ throughout and femoral pulses present Skin no rashes or lesions noted Neuro oriented x3 and CN's II-XII intact bilaterally Psych Appearance: grossly normal and appropriate Assessment & Plan Assessment/Plan (1) NSTEMI, initial episode of care: PLAN: She presents with chest discomfort and is noted to have a non-ST elevation myocardial infarction. Cardiac catheterization demonstrated previously stented LAD which is noted to be patent, Left circumflex artery previously stented and severely diseased. Right coronary artery subtotally occluded with the acute right ventricular marginal branch and PDA is patent Severe left ventricular systolic dysfunction. The patient underwent PCI of the circumflex artery. Plan will be to continue her on aspirin, Brilinta, and a PPI. (2) CHF exacerbation: PLAN: She does have evidence of heart failure with reduced ejection fraction based on her previous echocardiographic findings. We will continue her on jean-paul deline directed medical therapy. Evaluation of her left ventricular function demonstrated an ejection fraction estimated to be between 15 and 20%. We will continue with guideline directed medical therapy. We will switch her metoprolol to carvedilol We will start low-dose Entresto. At some point need to consider an SGLT2 inhibitor (3) Anemia: PLAN: She is anemic the etiology of which is not clear at this time. She has been on ticagrelor which will be continued. Depending on the definition of the coronary anatomy further recommendations will be made as to whether she will benefit from a GI evaluation. Thank you for allowing me to participate in the care of your patient. Please don't hesitate to call if any issues arise. (4) Coronary artery disease:
[2022-06-01 08:47] LABS: Absolute Lymphocyte Count 0.73 X10^3/uL (0.83-4.51); Absolute Neutrophil Count 2.8 X10^3/uL (2.0-7.7); Basophil# 0.03 X10^3/uL; Basophil% 0.8 % (0-1); Eosinophil# 0.09 X10^3/uL; Eosinophils% 2.3 % (0-5); Hematocrit 22.8 % (37-47); Hemoglobin 7.7 g/dL (12.0-15.0); Lymphocyte # 0.73 X10^3/ul (0.83-4.51); Lymphocyte % 18.9 % (19-41); Mean Corp Hgb Conc 33.8 g/dL (32-36); Mean Corpuscular Hgb 31.8 pg (27.0-32.0); Mean Corpuscular Volume 94.2 fL (81-99); Mean Platelet Vol. 9.5 fl (6.2-12.0); Monocyte# 0.24 X10^3/uL; Monocyte% 6.2 % (0-10); NRBC Flagged by Analyzer 0 % (0-5); Neutrophil # 2.77 X10^3/uL (2.7-7.7); Neutrophil % 71.5 % (47-70); Platelet Count 115 K/mm3 (150-450); RBC Distribution Width CV 14.4 % (11.6-14.6); RBC Distribution Width SD 49.1 fl (35.1-43.9); Red Blood Count 2.42 M/mm3 (4.2-5.4); White Blood Count 3.9 K/mm3 (4.4-11.0)
[2022-06-01] MEDS: Carvedilol 6.25 MG Tablet PO (09:17)
[2022-06-01] MEDS: TICAGRELOR 90 MG TABLET PO (09:17)
[2022-06-01] MEDS: Furosemide 40 MG Tablet PO (09:17)
[2022-06-01] MEDS: Sertraline 50 MG Tablet PO (09:17)
[2022-06-01] MEDS: 0.9% Saline Lock 10 ML Syringe IV (09:18)
[2022-06-01] MEDS: Aspirin E.C. 81 MG Tablet PO (09:23)
[2022-06-01 09:28] LABS: ALB/GLOB Ratio 0.7 RATIO (0.9-2.4); AST(SGOT) 15 U/L (15-37); Alanine Aminotransfer ALT/SGPT 16 U/L (13-56); Albumin, Serum 2.6 g/dL (3.2-5.0); Alkaline Phosphatase 70 U/L (45-117); Anion Gap 6 (5-15); BUN 43 mg/dL (7-18); BUN/Creat Ratio 24.7 RATIO (10-20); Calcium,Total 8.3 mg/dL (8.5-10.1); Chloride 107 mmol/L (98-107); Creatinine, Serum 1.74 mg/dL (0.55-1.02); EST Glomerular Filtration Rate 31 mL/min (>60); Est Glom Filt Rate - Afr Amer 37 mL/min (>60); Estimated Creatinine Clearance 28.57 ml/min; Globulin 3.7 g/dL (2.2-4.2); Glucose 171 mg/dL (74-106); Potassium 4.1 mmol/L (3.5-5.1); Protein, Total 6.3 g/dL (6.4-8.2); Sodium Level 138 mmol/L (136-145)
--- NOTE | 2022-06-01 10:00 | EKG12_ITS ---
Test Reason : AM EKG Blood Pressure : / mmHG Vent. Rate : 063 BPM Atrial Rate : 063 BPM P-R Int : 170 ms QRS Dur : 130 ms QT Int : 462 ms P-R-T Axes : 079 018 171 degrees QTc Int : 472 ms Normal sinus rhythm Left ventricular hypertrophy with QRS widening and repolarization abnormality ( [place] product ) Abnormal ECG When compared with ECG of 31-MAY-2022 05:20, No significant change was found Confirmed by STEPHANIE MANRIQUEZ, NAVID ([id number]), tape editor SVETLANA FALCON ([id number]) on 06/01/2022 2:18:27 PM Referred By: Confirmed By:NAVID BROWN MD
--- NOTE | 2022-06-01 10:05 | PCM.PN.HOSP ---
Objective Data Objective Data Vital Signs: Vital Signs Temp Pulse Resp BP Pulse Ox O2 Del Method O2 Flow Rate 97.2 F L 63 18 122/47 H 95 Room Air 2 06/01/22 09:06 06/01/22 09:06 06/01/22 09:06 06/01/22 09:06 06/01/22 09:06 06/01/22 09:10 06/01/22 07:51 Oxygen Flow Rate (L/min) 2 Oxygen Delivery Method Room Air Weight: 92.8 kg Body Mass Index (BMI) 34.0 Intake & Output: Intake and Output for Last 24 Hours 05/30/22 05/31/22 06/01/22 23:59 23:59 23:59 Intake Total 760.93 / 760.93 1615.25 / 1615.25 110 / 110 Output Total 875 / 1075 1400 / 1400 Balance -114.07 / -314.07 215.25 / 215.25 110 / 110 Lab / Micro Data Result Diagrams: 06/01/22 08:30 06/01/22 08:30 Labs: Laboratory Results - last 24 hr 05/31/22 11:04: POC Glucose 150 H 05/31/22 15:58: POC Glucose 172 H 05/31/22 21:37: POC Glucose 217 H 06/01/22 06:33: POC Glucose 194 H 06/01/22 08:30: WBC 3.9 L, RBC 2.42 L, Hgb 7.7 L, Hct 22.8 L, MCV 94.2, MCH 31.8, MCHC 33.8, RDW Std Deviation 49.1 H, RDW Coeff of Nohemy 14.4, Plt Count 115 L, MPV 9.5, Immature Gran % (Auto) 0.300, Neut % (Auto) 71.5 H, Lymph % (Auto) 18.9 L, [place] % (Auto) 6.2, Eos % (Auto) 2.3, Baso % (Auto) 0.8, Absolute Neuts (auto) 2.8, Absolute Lymphs (auto) 0.73 L, Nucleated RBC % 0 06/01/22 08:30: Sodium 138, Potassium 4.1, Chloride 107, Carbon Dioxide 25.0, Anion Gap 6, BUN 43 H, Creatinine 1.74 H, Estim Creat Clear Calc 28.57, Est GFR (MDRD) Af Amer 37 L, Est GFR (MDRD) Non-Af 31 L, BUN/Creatinine Ratio 24.7 H, Glucose 171 H, Calcium 8.3 L, Total Bilirubin 0.50, AST 15, ALT 16, Alkaline Phosphatase 70, Total Protein 6.3 L, Albumin 2.6 L, Globulin 3.7, Albumin/Globulin Ratio 0.7 L 06/01/22 09:31: Crossmatch See Detail
[2022-06-01 11:21] LABS: Bedside Glucose 172 mg/dL (74-106)
--- NOTE | 2022-06-01 12:36 | DCINST_ITS ---
Discharge Instructions Diet Discharge Diet: Low fat / Low cholesterol and 2000 mg Sodium Diet Activity Discharge Activity: Return to Normal Activity Follow Up Care Test Results: Test results from this visit will be discussed in further detail at your follow- up appointment, if applicable. Discharge Plan Admission Admit Date/Time: 05/30/22 05:35 Primary Reason for Your Visit: Acute NSTEMI/CHF/Anemia Attending Provider: Leena Valdez Primary Care Provider: Luisa Jeffrey Consulting Providers: Neli Wheeler ; Jayy Lyn Discharge Orders/Prescriptions Prescriptions: New furosemide 40 mg Tablet 40 mg PO BIDLX 30 Days Qty: 60 0RF carvedilol 6.25 mg Tablet 6.25 mg PO BID 30 Days Qty: 60 0RF aspirin 81 mg Tablet,Delayed Release (Dr/Ec) 81 mg PO BREAKFAST 30 Days Qty: 30 0RF pantoprazole 40 mg Tablet,Delayed Release (Dr/Ec) 40 mg PO BID 30 Days Qty: 60 0RF Entresto 24-26 mg Tablet 1 tab PO BID 30 Days Qty: 60 0RF Continued gabapentin 600 mg tablet 600 mg PO BID PRN (Reason: nerve pain) Label Comments: take 1 tablet by mouth once daily ropinirole 1 mg tablet 1 mg PO DAILY Label Comments: take 1 tablet by mouth at bedtime trazodone 100 mg tablet 100 mg PO QHS metoprolol succinate 25 mg tablet extended release 24 hr 25 mg PO DAILY sertraline 50 mg tablet 50 mg PO DAILY Brilinta 90 mg tablet 90 mg PO BID Label Comments: take 1 tablet by mouth twice a day rosuvastatin 40 mg tablet 40 mg PO QHS Discontinued tizanidine 2 mg tablet Label Comments: take 1 tablet by mouth once daily if needed furosemide 40 mg tablet 40 mg PO QODAY pantoprazole 40 mg tablet,delayed release (DR/EC) 40 mg PO DAILY No Action insulin glargine [Basaglar KwikPen U-100 Insulin] 100 UNIT/ML insulin pen 20 unit SQ TID Referrals / Follow Up: Luisa Jeffrey [Other] - In 1 Week Tra Miller MD [Med Staff - Active Staff] - Within 2 Weeks Disposition Disposition (needs filled in before D/C Order can be placed): Home Health Service
--- NOTE | 2022-06-01 12:39 | DS.PCM_ITS ---
Providers Date of Admission: 05/30/22 Date of Discharge: 06/02/22 Primary Care Physician: Luisa Jeffrey Consultations 05/30/22 05:39 Consult: Cardiology Routine Consulting Provider: Neli Wheeler Reason for Consult: nstemi; acute exacerbation of heart failure EMERGENT Consult: No MD Notified: Yes Date Notified: 05/30/22 Time Notified: 06:49 Method of Notification: Text 05/30/22 16:27 Consult: Onc/Wound/value analyst Routine Comment: Reason for Consult:: Right wrist fracture and injury, s/p stitches Reason For Visit: NSTEMI; CHF EXACERBATION Diagnosis Discharge Diagnosis (1) NSTEMI, initial episode of care: Status: Acute Code(s): I21.4 - Non-ST elevation (NSTEMI) myocardial infarction (2) CHF exacerbation: Status: Chronic Code(s): I50.9 - Heart failure, unspecified (3) Anemia: Status: Acute Code(s): D64.9 - Anemia, unspecified (4) Coronary artery disease: Status: Deleted Code(s): I25.10 - Atherosclerotic heart disease of [place] coronary artery without angina pectoris Plan 1. Acute NSTEMI, s/p cardiac cath, s/p balloon angioplasty 2. Acute exacerbation of heart failure with reduced EF, EF 20% 3. Type II DM 4. Anemia, iron deficiency 5. Recent right 2nd finger injury, s/p stitches Medications at Discharge Home Medications insulin glargine 100 unit/mL (3 mL) subcutaneous pen (Basaglar KwikPen U-100 Insulin) 20 unit SQ TID blood sugar 05/22/18 gabapentin 600 mg tablet 600 mg PO BID PRN nerve pain 05/30/22 ropinirole 1 mg tablet 1 mg PO DAILY restless leg 05/30/22 rosuvastatin 40 mg tablet 40 mg PO QHS cholesterol 05/30/22 sertraline 50 mg tablet 50 mg PO DAILY depression 05/30/22 ticagrelor 90 mg tablet (Brilinta) 90 mg PO BID anticoagulant 05/30/22 trazodone 100 mg tablet 100 mg PO QHS sleep 05/30/22 aspirin 81 mg tablet,delayed release 81 mg PO BREAKFAST 30 days #30 tabs 06/01/22 carvedilol 6.25 mg tablet 6.25 mg PO BID 30 days #60 tabs 06/01/22 furosemide 40 mg tablet 40 mg PO BIDLX 30 days #60 tabs 06/01/22 pantoprazole 40 mg tablet,delayed release 40 mg PO BID 30 days #60 tabs 06/01/22 sacubitril 24 mg-valsartan 26 mg tablet (Entresto) 1 tab PO BID 30 days #60 tabs 06/01/22 Hospital Course Operations None Procedures Cardiac catheterization (05/30/22) Summary of Care Provided Minutes Spent on Discharge: 35 Hospital Course: 67-year-old female with past medical history of heart failure with reduced EF, CAD status post stent, CVA, type II DM complicated by peripheral neuropathy, morbid obesity, who was transferred to this hospital from [facility] with chest pain that started hours prior to presentation. Chest pain was described as substernal, radiates to her left shoulder. It started off as indigestion/heartburn. Patient was found to have low oxygen saturation in the 80s when the paramedics got to her home. She was put on 2 L nasal cannula oxygen. She was given nitro and aspirin with improvement. Patient's admitting BNP Was 16,000. Chest x-ray showed right lung airspace disease, small pleural effusion. Patient was started on IV Lasix. Her troponin was 530 -->790. She was started on heparin drip and admitted to the progressive care unit Cardiology was consulted for non-STEMI. She underwent cardiac cath on 05/30/2022. 510 showed severe triple-vessel disease with subtotal occluded right ventricular acute marginal branch, severe disease of the previous stented circumflex artery involving nearly the entire vessel, moderate ostial previously stented left LAD artery and severe LV dysfunction. Patient subsequently underwent balloon angiography. 2D echo showed EF of 20%, inferobasal, basal inferoseptal, mid posterior, mid lateral akinesis, hypokinesis of the posterior basal, lateral basal. Patient was continued on aspirin, Plavix, statin. She was also continued on Lasix. Patient was also found to be anemic. She was iron deficient. She however was not able to produce any stool to check for stool occult blood. She received IV Venofer x2. She received 1 unit of packed RBC for hemoglobin of 7.7 on the day of discharge. Repeat hemoglobin was 9.2. She was managed on IV PPI twice daily. She was discharged on oral PPI twice daily as well as oral iron. She was strongly advised to follow-up with her primary care doctor within 1 week and have repeat blood work done to follow-up on her blood counts and her kidney function. She was also advised to follow-up with gastroenterology for colonoscopy. She denies having any colonoscopy. She needs to see her c ardiologist within 2 weeks. Her marketing financial analyst is up with the [facility]. Patient originally stays in [place] and was [place] here to visit her granddaughter. Physical Exam Narrative Physical exam: General: Alert, Oriented x3, Cooperative, No apparent distress HEENT: Atraumatic Oral: Moist Mucosa Neck: Supple Lungs: Diminished to auscultation Cardiovascular: HS I+II, regular, no murmurs Abdomen: Bowel Sounds Present, Soft, Non Tender Extremities: No edema, 2nd right finger in a splint Skin: No rashes, No breakdown Neurological: Grossly intact Psych/Mental Status: Appropriate Weight / BMI Weight Weight: 92.8 kg Body Mass Index (BMI) 34.0 ABG / Lab / Microbiology Data Result Diagrams: 06/01/22 16:38 06/01/22 08:30 Laboratory: Laboratory Results - last 24 hr 05/31/22 15:58: POC Glucose 172 H 05/31/22 21:37: POC Glucose 217 H 06/01/22 06:33: POC Glucose 194 H 06/01/22 08:30: WBC 3.9 L, RBC 2.42 L, Hgb 7.7 L, Hct 22.8 L, MCV 94.2, MCH 31.8, MCHC 33.8, RDW Std Deviation 49.1 H, RDW Coeff of Nohemy 14.4, Plt Count 115 L, MPV 9.5, Immature Gran % (Auto) 0.300, Neut % (Auto) 71.5 H, Lymph % (Auto) 18.9 L, [place] % (Auto) 6.2, Eos % (Auto) 2.3, Baso % (Auto) 0.8, Absolute Neuts (auto) 2.8, Absolute Lymphs (auto) 0.73 L, Nucleated RBC % 0 06/01/22 08:30: Sodium 138, Potassium 4.1, Chloride 107, Carbon Dioxide 25.0, Anion Gap 6, BUN 43 H, Creatinine 1.74 H, Estim Creat Clear Calc 28.57, Est GFR (MDRD) Af Amer 37 L, Est GFR (MDRD) Non-Af 31 L, BUN/Creatinine Ratio 24.7 H, Glucose 171 H, Calcium 8.3 L, Total Bilirubin 0.50, AST 15, ALT 16, Alkaline Phosphatase 70, Total Protein 6.3 L, Albumin 2.6 L, Globulin 3.7, Albumin/Globulin Ratio 0.7 L 06/01/22 09:31: Blood Type O POSITIVE, Antibody Screen NEGATIVE, Crossmatch See Detail 06/01/22 11:01: POC Glucose 172 H D/C Instructions Discharge Diet: Low fat / Low cholesterol and 2000 mg Sodium Diet Meaningful Use Info Meaningful Use Diagnoses (Choose all that apply): None applicable Discharge Plan Admission Admit Date/Time: 05/30/22 05:35 Primary Reason for Your Visit: Acute NSTEMI/CHF/Anemia Attending Provider: Leena Valdez Primary Care Provider: Luisa Jeffrey Consulting Providers: Neli Wheeler ; Jayy Lyn Discharge Orders/Prescriptions Prescriptions: New furosemide 40 mg Tablet 40 mg PO BIDLX 30 Days Qty: 60 0RF carvedilol 6.25 mg Tablet 6.25 mg PO BID 30 Days Qty: 60 0RF aspirin 81 mg Tablet,Delayed Release (Dr/Ec) 81 mg PO BREAKFAST 30 Days Qty: 30 0RF pantoprazole 40 mg Tablet,Delayed Release (Dr/Ec) 40 mg PO BID 30 Days Qty: 60 0RF Entresto 24-26 mg Tablet 1 tab PO BID 30 Days Qty: 60 0RF Continued gabapentin 600 mg tablet 600 mg PO BID PRN (Reason: nerve pain) Label Comments: take 1 tablet by mouth once daily ropinirole 1 mg tablet 1 mg PO DAILY Label Comments: take 1 tablet by mouth at bedtime trazodone 100 mg tablet 100 mg PO QHS sertraline 50 mg tablet 50 mg PO DAILY Brilinta 90 mg tablet 90 mg PO BID Label Comments: take 1 tablet by mouth twice a day rosuvastatin 40 mg tablet 40 mg PO QHS Discontinued tizanidine 2 mg tablet Label Comments: take 1 tablet by mouth once daily if needed metoprolol succinate 25 mg tablet extended release 24 hr 25 mg PO DAILY furosemide 40 mg tablet 40 mg PO QODAY pantoprazole 40 mg tablet,delayed release (DR/EC) 40 mg PO DAILY No Action insulin glargine [Basaglar KwikPen U-100 Insulin] 100 UNIT/ML insulin pen 20 unit SQ TID Referrals / Follow Up: Luisa Jeffrey [Other] - In 1 Week Tra Miller MD [Med Staff - Active Staff] - Within 2 Weeks Disposition Disposition (needs filled in before D/C Order can be placed): Home Health Service Charges/Coding Visit Charges Inpatient E&M: 18066 Disch Hosp
[2022-06-01 13:15] LABS: Hemoglobin A1c 6.1 % (3.8-5.6)
--- NOTE | 2022-06-01 14:30 | CASEMGMT ---
This RN CM to room to discuss d/c plan with pt. Pt declines need for further therapy at discharge. Pt states would really like to make it to granddaughter's concerts tonight and asks about getting a w/c for just tonight. Pt aware that pt would have to qualify for w/c and they do not just give out for one evening, voices understanding. Pt to also to be sent home on Entresto at d/c and call to [facility] retail pharmacy to have them call this [facility] with cost once med is run, voices understanding. [place] [facility]
--- NOTE | 2022-06-01 15:55 | PHA.DC.MC ---
Pharmacy Service has performed discharge medication reconciliation and counseling for this patient. This [facility] spoke to Dr. Valdez, metoprolol was initially continued on discharge along with new carvedilol. She then D/C'ed metoprolol. 1. ASPIRIN 81MG PO DAILYCM 2. CARVEDILOL 6.25MG PO BID 3. ENTRESTO 24/26 MG PO BID The patient's discharge medication list was reviewed for discrepancies and discrepancies were resolved. Home Medications insulin glargine 100 unit/mL (3 mL) subcutaneous pen (Basaglar KwikPen U-100 Insulin) 20 unit SQ TID blood sugar 05/22/18 gabapentin 600 mg tablet 600 mg PO BID PRN nerve pain 05/30/22 ropinirole 1 mg tablet 1 mg PO DAILY restless leg 05/30/22 rosuvastatin 40 mg tablet 40 mg PO QHS cholesterol 05/30/22 sertraline 50 mg tablet 50 mg PO DAILY depression 05/30/22 ticagrelor 90 mg tablet (Brilinta) 90 mg PO BID anticoagulant 05/30/22 trazodone 100 mg tablet 100 mg PO QHS sleep 05/30/22 aspirin 81 mg tablet,delayed release 81 mg PO BREAKFAST 30 days #30 tabs 06/01/22 carvedilol 6.25 mg tablet 6.25 mg PO BID 30 days #60 tabs 06/01/22 furosemide 40 mg tablet 40 mg PO BIDLX 30 days #60 tabs 06/01/22 pantoprazole 40 mg tablet,delayed release 40 mg PO BID 30 days #60 tabs 06/01/22 sacubitril 24 mg-valsartan 26 mg tablet (Entresto) 1 tab PO BID 30 days #60 tabs 06/01/22 The patient was counseled on the following discharge medications and changes in medications for homegoing were reviewed. The Reason for Use, instructions for use, and potential side effects were reviewed for all new medications. The patient's questions regarding all of their medications were answered. The patient was able to verbally demonstrate an understanding of their discharge medications.
[2022-06-01 17:07] LABS: Hematocrit 27.9 % (37-47); Hemoglobin 9.2 g/dL (12.0-15.0)
--- NOTE | 2022-06-02 07:45 | CASEMGMT ---
Per [facility] retail pharmacy, pt unable to fill Entresto as it is too soon for her to fill. Pt must have previously already been on med. Per [facility] pharmacy, pt cannot fill till 06/15/22. Dhara BEST CM
== END 2022-06-01 17:26 | disposition home health service (06) | DRG 250 ==
PROVIDERS: Specialist; Admitting Provider Hospitalist; Visit Provider Internal Medicine
DX: I21.4 Non-ST elevation (NSTEMI) myocardial infarction (principal); I50.23 Acute on chronic systolic (congestive) heart failure; I42.9 Cardiomyopathy, unspecified; E11.42 Type 2 diabetes mellitus with diabetic polyneuropathy; E11.65 Type 2 diabetes mellitus with hyperglycemia; D50.9 Iron deficiency anemia, unspecified; E66.01 Morbid (severe) obesity due to excess calories; Z79.4 Long term (current) use of insulin; F17.200 Nicotine dependence, unspecified, uncomplicated; J98.4 Other disorders of lung; I25.10 Atherosclerotic heart disease of native coronary artery without angina pectoris; F41.9 Anxiety disorder, unspecified; R07.9 Chest pain, unspecified; Z79.02 Long term (current) use of antithrombotics/antiplatelets; Z79.2 Long term (current) use of antibiotics; Z79.82 Long term (current) use of aspirin; G89.29 Other chronic pain; S60.9 Unspecified superficial injury of wrist, hand and fingers; R09.02 Hypoxemia
CPT/HCPCS: 36415; 80048; 80053; 80061; 82728; 82962; 83036; 83540; 83550; 84484; 85014; 85018; 85025; 85027; 85045; 86850; 86900; 86901; 86920; 86922; 92920; 93005; 93306; 93458; 93571; 97162; 97166; 99152; 99153; 99406; J7040; J7050; P9016; Q9957; Q9967; A4216; C1725; C1760; C1769; C1887; C1894; C8929; J1940; J2405; J2916

== ENCOUNTER 2025-04-07 21:44 | Emergency (ER) | payer MEDICARE, MEDICAID, SELFPAY ==
[2025-04-07 21:45] VITALS: BP 90/52; PULSE 99; RESP 12; TEMP 36.8; O2SAT 100; BMI 36.3
[2025-04-07 21:49] VITALS: BP 101/58; PULSE 99; RESP 18; O2SAT 98
--- NOTE | 2025-04-07 22:01 | ED.VIS.FALL ---
HPI HPI - Fall History of Present Illness Chief Complaint: Fall Informant: patient Occured/Mechanism Occurred: Today Mechanism/Context: Yes slip Usually ambulates: Non-Ambulatory Pain/Injury Pain Location: head, back and upper extremity (Right shoulder) Quality of Pain: Burning (Right shoulder) and Stabbing (Back) Worsened by: Movement Relieved by: Rest Associated Symptoms Associated Symptoms: Positive for Inability to ambulate and Loss of consciousness; Negative for Parasthesias, Weakness or Loss of function Length of loss of consciousness: Questionable loss of consciousness of a few seconds Narrative Narrative: Patient presents after a fall that occurred today. Patient states she also had a fall yesterday. Patient hit her head. Patient is unsure if there was a brief loss of consciousness for couple seconds. Patient states she does not ambulate. Patient states she normally gets around in a wheelchair. Patient hit the right side of her head. Patient complains of pain in her head, right shoulder, and upper back. Patient describes the pain as stabbing in her upper back and burning in her right shoulder. Patient states her pain is worse with any movement. Patient denies any paresthesias or weakness. [facility] Medical History (Updated 04/07/25 @ 23:[address] Eliezer Spivey, DO) Pacemaker Cardiomyopathy HFrEF (heart failure with reduced ejection fraction) Atherosclerosis of coronary artery Anemia Anxiety Depression Chronic pain Rheumatoid arthritis Former smoker Congestive heart failure (CHF) Diabetes Amputation foot, bilat Edema leg Other specified peripheral vascular diseases Malnutrition Non-pressure chronic ulcer of other part of right foot with fat layer exposed Type 2 diabetes mellitus with diabetic polyneuropathy Wound infection Peripheral neuropathy PVD (peripheral vascular disease) Agitated depression Home Medications ?Medication ?Instructions ?Recorded ?Last Taken ?Type insulin glargine 100 unit/mL (3 15 unit SQ QHS blood sugar 05/22/18 07/02/18 History mL) subcutaneous pen (Basaglar KwikPen U-100 Insulin) gabapentin 600 mg tablet 600 mg PO 4X/DAY nerve pain 05/30/22 05/29/22 History ropinirole 1 mg tablet 1 mg PO QHS restless leg 05/30/22 Unknown History pantoprazole 40 mg tablet,delayed 40 mg PO BID 30 days #60 tabs 06/01/22 Unknown Rx release sacubitril 24 mg-valsartan 26 mg 1 tab PO BID 30 days #60 tabs 06/01/22 Unknown Rx tablet (Entresto) apixaban 5 mg tablet (Eliquis) 5 mg PO BID 04/07/25 Unknown History cholecalciferol (vitamin D3) 125 125 mcg PO DAILY 04/07/25 Unknown History mcg (5,000 unit) tablet docusate sodium 100 mg capsule 100 mg PO BID 04/07/25 Unknown History (Col-Rite) dulaglutide 0.75 mg/0.5 mL 0.75 mg subcut QWEEK 04/07/25 Unknown History subcutaneous pen injector (Trulicity) empagliflozin 10 mg tablet 10 mg PO DAILY 04/07/25 Unknown History (Jardiance) furosemide 40 mg tablet 20 mg PO DAILY 04/07/25 Unknown History hydroxyzine pamoate 25 mg capsule 25 mg PO BID 04/07/25 Unknown History (Vistaril) insulin lispro 100 unit/mL subcut 04/07/25 Unknown History subcutaneous pen (Humalog KwikPen (U-100) Insulin) ipratropium 0.5 mg-albuterol 3 mg 3 ml inhalation Q6H PRN shortness 04/07/25 Unknown History (2.5 mg base)/3 mL nebulization of breath soln levothyroxine 25 mcg tablet 25 mcg PO DAILY 04/07/25 Unknown History metoprolol succinate 25 mg 25 mg PO DAILY 04/07/25 Unknown History tablet,extended release 24 hr nitroglycerin 0.4 mg sublingual sublingual 04/07/25 Unknown History tablet oxycodone-acetaminophen 5 mg-325 1 tab PO BID PRN 04/07/25 Unknown History mg tablet ranolazine 500 mg tablet,extended 500 mg PO BID 04/07/25 Unknown History release,12 hr sertraline 100 mg tablet 100 mg PO BID 04/07/25 Unknown History spironolactone 25 mg tablet 12.5 mg PO DAILY 04/07/25 Unknown History sucralfate 1 gram tablet (Carafate) 1 g PO TID 04/07/25 Unknown History tizanidine 2 mg tablet 2 mg PO TID PRN muscle spasticity 04/07/25 Unknown History trazodone 150 mg tablet 75 mg PO QHS 04/07/25 Unknown History Allergy/AdvReac Type Severity Reaction Status Date / Time amoxicillin Allergy Hives Verified 12/10/18 15:13 clindamycin Allergy Unknown Verified 12/10/18 15:13 Penicillins Allergy Rash Verified 12/10/18 15:13 pentazocine (From Talwin) Allergy Unknown Verified 12/10/18 15:13 tramadol (From Ultram) Allergy Unknown Verified 12/10/18 15:13 bupropion AdvReac NEEDS Verified 04/07/25 21:45 FOLLOW-UP varenicline (From Chantix) AdvReac Unknown Verified 12/10/18 15:13 Family History Father Legionnaires' disease Brother Heart disease Mother Diabetes Surgical History (Updated 04/07/25 @ 22:[address] Eliezer Spivey DO) History of carpal tunnel surgery of left wrist History of amputation of toe History of coronary angioplasty (05/30/22) History of coronary artery stent placement H/O: hysterectomy Hx of tonsillectomy Social History (Updated 04/07/25 @ 22:[address] Eliezer Spivey DO) Smoking Status: Current every day smoker tobacco type: cigarettes substance use type: does not use ROS ROS ED Constitutional Constitutional ED: Denies chills or fever(s) Eyes Eyes: Denies blurry vision or change in vision ENT ENT ED: Denies rhinorrhea or sore throat Cardiovascular Cardiovascular: Denies chest pain or palpitations Respiratory/Chest Respiratory/Chest: Denies cough or dyspnea Gastrointestinal Gastrointestinal: Denies nausea or vomiting Genitourinary Genitourinary ED: Denies dysuria or hematuria Musculoskeletal Musculoskeletal: Reports back pain; Denies neck pain Integumentary Denies abscess or rash Neurologic Neurologic: Reports headache(s); Denies weakness Allergic/Immunologic Allergic/Immunologic ED: Denies mouth swelling or urticaria EXAM Physical Exam Const Vital Signs: 04/07/25 21:45 04/07/25 21:45 04/07/25 21:49 Temperature 98.3 F Temperature Source Oral Pulse Rate 99 99 Respiratory Rate 12 18 Respiratory Effort Normal Non-Labored Respiratory Depth Normal Respiratory Pattern Normal Blood Pressure 90/52 L 101/58 L Blood Pressure Mean 64 72 Pulse Ox 100 100 98 Oxygen Delivery Method Room Air Room Air Room Air 04/07/25 22:26 04/07/25 22:45 04/07/25 23:30 Temperature Temperature Source Pulse Rate 104 H 93 92 Respiratory Rate 16 18 16 Respiratory Effort Respiratory Depth Respiratory Pattern Blood Pressure 92/60 113/57 L 114/68 Blood Pressure Mean 70 75 83 Pulse Ox 98 97 99 Oxygen Delivery Method Room Air Room Air Room Air Positive well nourished and well developed General Appearance ED: well developed and NAD HEENT Reports normocephalic HEENT Narrative: There is tenderness over the right forehead and periorbital area. There is no ecchymosis. There is slight edema. There is no bony crepitance or step-off. There is no deformity noted. Eyes PERRL and EOMs intact bilaterally Neck Neck Narrative: There is mild tenderness over the cervical spine and paraspinal muscles. There is no bony crepitance or step-off. Range of motion was slightly limited in all motions of the cervical spine secondary to pain. Resp normal respiratory effort and clear to auscultation bilaterally Cardio regular rate and regular rhythm GI non-tender and non-distended Palpation: soft Neuro oriented x3, CN's II-XII intact bilaterally, moves all extremities, no focal motor deficits and no sensory deficits noted [place] Coma Scale: document GCS findings Spontaneous Obeys Commands Oriented 15 Sensorium / Orientation: alert Psych mental status grossly normal and thought process normal MDM MDM MDM Narrative Medical decision making narrative: Differential diagnosis includes intracranial bleeding, closed head injury, cervical spine fracture, cervical strain, right shoulder contusion, right proximal humerus fracture, and shoulder strain. CT scan of the brain will be obtained to assess for intracranial bleeding. CT scan of the cervical spine will be obtained to assess for cervical spine fracture and spondylolisthesis. X-rays of the right shoulder will be obtained to assess for proximal humerus fracture and degenerative arthritis. Radiography Diagnostic Testing: Clinical Impression(s) from Imaging Studies Brain CT 04/07/25 22:23 IMPRESSION: 1. No intracranial hemorrhage. No mass effect or midline shift. 2. Chronic involutional and ischemic gliotic white matter changes. 3. No evidence of acute cervical spine fracture or traumatic subluxation. 4. Cervical spine straightening suggestive of paraspinal muscle stiffness or spasm. 5. Moderate degenerative changes of the cervical spine from C4-C7. 6. Multiple enlarged lower cervical and paraclavicular lymph nodes, clinical correlation suggested. Reading Location: [facility] Cervical Spine CT 04/07/25 22:23 IMPRESSION: 1. No intracranial hemorrhage. No mass effect or midline shift. 2. Chronic involutional and ischemic gliotic white matter changes. 3. No evidence of acute cervical spine fracture or traumatic subluxation. 4. Cervical spine straightening suggestive of paraspinal muscle stiffness or spasm. 5. Moderate degenerative changes of the cervical spine from C4-C7. 6. Multiple enlarged lower cervical and paraclavicular lymph nodes, clinical correlation suggested. Reading Location: [facility] Shoulder X-Ray 04/07/25 23:05 IMPRESSION: No acute fracture or dislocation. Reading Location: [facility] CT scan of the brain was obtained. There is no acute intracranial abnormality. There are chronic involutional changes noted. This was interpreted by the radiologist and was also independently reviewed by myself. CT scan of the cervical spine was obtained. There is no acute fracture or spondylolisthesis. There is no soft tissue swelling. There is some straightening of the cervical lordosis. There are moderate degenerative changes. This was interpreted by the radiologist and was also independently reviewed by myself. X-rays of the right shoulder were obtained. There are 4 views. On my independent interpretation, there is no acute fracture or dislocation. There are some degenerative changes noted. Radiologist also interpreted the x-rays and agrees. Treatment and Re-Evaluation Narrative: Patient was given injection of morphine. Patient was feeling better on reevaluation. Patient was advised of her findings. Patient was instructed to use ice to the area. Patient was instructed to follow-up with her primary care physician in 5 to 7 days. Patient was instructed to return if worse in any way. Patient understood and was agreeable with the plan. All questions were answered. Discharge Plan Triage Chief Complaint: Fall ED Provider: Eliezer Spivey Dx/Rx/DC Orders Clinical Impression: Closed head injury, Contusion of right shoulder region, Fall Instructions: ED Head Injury (Adult), ED Shoulder Bruise Prescriptions: No Action insulin glargine [Basaglar KwikPen U-100 Insulin] 100 UNIT/ML insulin pen 15 unit SQ QHS gabapentin 600 mg tablet 600 mg PO 4X/DAY ropinirole 1 mg tablet 1 mg PO QHS Patient Comments: take 1 tablet by mouth at bedtime pantoprazole 40 mg Tablet,Delayed Release (Dr/Ec) 40 mg PO BID 30 Days Qty: 60 0RF Entresto 24-26 mg Tablet 1 tab PO BID 30 Days Qty: 60 0RF sucralfate [Carafate] 1 gram tablet 1 g PO TID docusate sodium [Col-Rite] 100 mg capsule 100 mg PO BID Eliquis 5 mg tablet 5 mg PO BID ipratropium-albuterol 0.5 mg-3 mg(2.5 mg base)/3 mL solution for nebulization 3 ml inhalation Q6H PRN (Reason: shortness of breath) Patient Comments: [NO ORIGINAL SIG] insulin lispro [Humalog KwikPen Insulin] 100 unit/mL insulin pen subcut Jardiance 10 mg tablet 10 mg PO DAILY levothyroxine 25 mcg tablet 25 mcg PO DAILY oxycodone-acetaminophen 5-325 mg tablet 1 tab PO BID PRN metoprolol succinate 25 mg tablet extended release 24 hr 25 mg PO DAILY ranolazine 500 mg tablet extended release 12 hr 500 mg PO BID sertraline 100 mg tablet 100 mg PO BID spironolactone 25 mg tablet 12.5 mg PO DAILY tizanidine 2 mg tablet 2 mg PO TID PRN (Reason: muscle spasticity) trazodone 150 mg tablet 75 mg PO QHS nitroglycerin 0.4 mg tablet, sublingual sublingual Trulicity 0.75 mg/0.5 mL pen injector 0.75 mg subcut QWEEK hydroxyzine pamoate [Vistaril] 25 mg capsule 25 mg PO BID cholecalciferol (vitamin D3) 125 mcg (5,000 unit) tablet 125 mcg PO DAILY furosemide 40 mg Tablet 20 mg PO DAILY Primary Care Provider: Kendall Tyson Referrals: Kendall Tyson MD [Primary Care Provider] - 5-7 Days Print Language: Kyrgyz Disposition Disposition: Home, Self Care
--- NOTE | 2025-04-07 22:23 | CT_ITS ---
PROCEDURE: BRAIN/HEAD WITHOUT CONTRAST; SPINE CERVICAL WITHOUT CONTRAS 04/07/2025 REASON FOR EXAM: INJURY/PAIN TECHNIQUE: BRAIN/HEAD WITHOUT CONTRAST; SPINE CERVICAL WITHOUT CONTRAS Coronal and Sagittal reconstruction series were provided. One or more dose reduction techniques were used (e.g., Automated exposure control, adjustment of the mA and/or kV according to patient size, use of iterative reconstruction technique. COMPARISON: 10/28/2018 FINDINGS: There is no extra-axial or intra-axial intracranial hemorrhage. No mass effect or midline shift is seen. Generalized intracranial volume loss and findings compatible with chronic microvascular white matter ischemia. There is normal mckeon-white matter differentiation. The posterior fossa is grossly unremarkable. The skull is unremarkable. Visualized paranasal sinuses are clear. The mastoid air cells show normal translucency. Mild straightening of the cervical spine suggestive of paraspinal muscle stiffness or spasm. No traumatic subluxation. No acute cervical spine fracture is identified. The vertebral body heights are intact. No suspicious osseous lesions are identified. The craniocervical junction appears intact. There is no prevertebral soft tissue swelling. Moderate degenerative changes from C4-C7. No severe neural foraminal or spinal canal stenosis. Multiple enlarged lower cervical and periclavicular lymph nodes. The visualized lung cochran are clear. No definite pneumothorax. CT/Brain/Head without Contrast IMPRESSION: 1. No intracranial hemorrhage. No mass effect or midline shift. 2. Chronic involutional and ischemic gliotic white matter changes. 3. No evidence of acute cervical spine fracture or traumatic subluxation. 4. Cervical spine straightening suggestive of paraspinal muscle stiffness or sp asm. 5. Moderate degenerative changes of the cervical spine from C4-C7. 6. Multiple enlarged lower cervical and paraclavicular lymph nodes, clinical co rrelation suggested. Reading [facility]
[2025-04-07 22:26] VITALS: BP 92/60; PULSE 104; RESP 16; O2SAT 98
[2025-04-07 22:45] VITALS: BP 113/57; PULSE 93; RESP 18; O2SAT 97
--- NOTE | 2025-04-07 23:05 | RAD_ITS ---
PROCEDURE: RIGHT SHOULDER MIN 2 VIEWS 04/07/2025 REASON FOR EXAM: INJURY/PAIN TECHNIQUE: RIGHT SHOULDER MIN 2 VIEWS COMPARISON: None. FINDINGS: No acute fracture or dislocation. Alignment is anatomic. Preserved glenohumeral joint space. Moderate degenerative arthrosis of the right AC joint. No unusual periarticular calcification. No marked soft tissue swelling. Visualized right lung field is clear. RAD/Shoulder min 2 Views IMPRESSION: No acute fracture or dislocation. Reading Location: [id number]
[2025-04-07 23:30] VITALS: BP 114/68; PULSE 92; RESP 16; O2SAT 99
[2025-04-07 23:46] VITALS: BP 117/86; PULSE 90; RESP 18; TEMP 36.6; O2SAT 100
[2025-04-08] VITALS: BP 96/76; PULSE 84; RESP 18; O2SAT 100
[2025-04-08] MEDS: HYDROcodone Bitartrate/Apap 5/325 Tablet PO (00:24)
== END 2025-04-08 00:26 | disposition home or self-care (01) ==
PROVIDERS: Emergency Provider Emergency Medicine; PCP Family Medicine; Visit Provider Emergency Medicine
DX: S09.90XA Unspecified injury of head, initial encounter (principal); I50.22 Chronic systolic (congestive) heart failure; I42.9 Cardiomyopathy, unspecified; E11.42 Type 2 diabetes mellitus with diabetic polyneuropathy; Z79.4 Long term (current) use of insulin; S40.011A Contusion of right shoulder, initial encounter; W01.0XXA Fall on same level from slipping, tripping and stumbling without subsequent striking against object, initial encounter; R26.2 Difficulty in walking, not elsewhere classified; M54.9 Dorsalgia, unspecified; I25.10 Atherosclerotic heart disease of native coronary artery without angina pectoris; F17.210 Nicotine dependence, cigarettes, uncomplicated; Z79.01 Long term (current) use of anticoagulants; Z79.84 Long term (current) use of oral hypoglycemic drugs; Z79.890 Hormone replacement therapy; Z79.899 Other long term (current) drug therapy; Z90.710 Acquired absence of both cervix and uterus; Z95.5 Presence of coronary angioplasty implant and graft
CPT/HCPCS: 70450; 72125; 73030; 96372; 99284

== ENCOUNTER → 2025-06-16 | Outpatient (CLI) | payer MEDICARE, MEDICAID, SELFPAY ==
--- NOTE | 2025-06-16 12:32 | CT_ITS ---
PROCEDURE: EXTREMITY UPPER WITHOUT CONTRA 06/16/2025 REASON FOR EXAM: UNSPECIFIED SUBLUXATION OF RIGHT RADIAL HEAD, INITIAL ENCOUNTER TECHNIQUE: Procedure Code: CTEUWO Modality: CT Procedure: EXTREMITY UPPER WITHOUT CONTRA Coronal and Sagittal reconstruction series were provided. One or more dose reduction techniques were used (e.g., Automated exposure control, adjustment of the mA and/or kV according to patient size, use of iterative reconstruction technique. RADIATION DOSE SUMMARY: DLP: 658 mGycm COMPARISON: None FINDINGS: Bones: There is no acute fracture or dislocation identified. There is a 0.15 cm osteochondral fragment in the anterior joint space. There is a 0.25 cm osteochondral fragment in the posterior joint space. Joints: There is mild osteoarthritis. Soft Tissues: There is no visible effusion. No soft tissue abnormality is identified. Vascular calcifications are present. CT/Extremity Upper without Contra IMPRESSION: There is no acute fracture or dislocation identified. There is a 0.15 cm osteochondral fragment in the anterior joint space. There i s a 0.25 cm osteochondral fragment in the posterior joint space. Reading Location: [facility]
== END | disposition home or self-care (01) ==
PROVIDERS: PCP Family Medicine; Referring Provider Physician Assistant Surgical; Visit Provider Physician Assistant Surgical
DX: S53.001A Unspecified subluxation of right radial head, initial encounter (principal)
CPT/HCPCS: 73200